=== PATIENT | male | born 1980 | race Caucasian/White ===

== ENCOUNTER 2019-04-02 10:35 | Emergency (ER) | payer BC ==
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
--- OUTSIDE RECORDS SUMMARY | 2019-04-02 10:59 | XMS REPORT ---
:1980 Author Organization [facility] Address [address] [place] [address] Care Team Providers Name Role Phone LorenzoMal Unavailable Unavailable PROBLEMS Type Condition ICD9-CM SME99-MC Onset Condition SNOMED Code Code Code Dates Status Problem Low back pain M54.5 Active 888894276 Problem History of hepatitis Z86.19 Active 563437960 C Problem Acute hepatitis C B17.10 Active 937451048 Problem Cocaine abuse in F14.10 Active 901615512 remission Problem Cryoglobulinemia D89.1 Active 867184752157115 Problem BPH (benign N40.0 Active 181859484 prostatic hypertrophy) with urinary retention Problem Tinnitus, bilateral H93.13 Active 7443950086498 Problem Chronic viral B18.2 Active 160130312 hepatitis C Problem Erectile N52.9 Active 718135311 dysfunction, unspecified erectile dysfunction type Problem Hep C w/o coma, B18.2 Active 871200188 chronic Problem Chronic pain after G89.29 Active 255415915 traumatic injury Problem 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 50994882 personality disorder Problem Sleep disorder G47.9 Active 67844862 Problem History of heroin Z87.898 Active 445884327103961 abuse Problem Mood disorder F39 Active 54253038 Problem Anxiety F41.9 Active 35723265 Problem Cannabis dependence, F12.20 Active 52963988 abuse Problem Nicotine dependence, F17.210 Active 67053437 cigarettes, uncomplicated Problem Pain, chronic due to G89.21 Active 912470997 trauma Problem Tinnitus of both H93.13 Active 4202600324967 ears Problem Environmental Z91.09 Active 244731618 allergies Problem Reactive depression F32.9 Active 14382520 (situational) ALLERGIES No Known Allergies ENCOUNTERS Encounter Location Date Diagnosis [address] Mar, [facility] [place] [address] Mar, [facility] [place] [address] Mar, Dehiscence of operative [facility] [place] wound, initial encounter [address] T81.31XA ; Discharge from wound T14.8XXA and Closed fracture of right ankle, sequela S82.891S [address] Mar, Anxiety F41.9 and [facility] [place] Antisocial personality [address] disorder F60.[address] Feb, Encounter for immunization [facility] CRISTELA Cahcon Z23 [address] Feb, [place] [address] Feb, [facility] [place] [address] Feb, Anxiety F41.9 and [facility] [place] Antisocial personality [address] disorder F60.[address] Feb, Dehiscence of operative [facility] [place] wound, initial encounter [address] T81.31XA and Discharge from wound T14.8XXA [address] Feb, [facility] [place] [address] [place] Feb, [place] [address] Feb, Anxiety F41.9 and [facility] [place] Antisocial personality [address] disorder F60.[address] Feb, [place] [address] right tibia Z87.81 and Right foot pain M79.[address] [place] Feb, 2019 [facility] [place] [address] Feb, [facility] [place], [place] [address] [address] [place] Feb, [facility] [place] [address] Feb, Anxiety F41.9 ; History of [place] heroin abuse Z87.898 ; [address] Cannabis dependence, abuse F12.20 and Cocaine abuse in remission F14.[address] Feb, Mood disorder F39 and [place] Antisocial personality [address] disorder F60.[address] Jan, Anxiety F41.9 and [place] Antisocial personality [address] disorder F60.[address] Jan, Anxiety F41.9 [place] [address] Jan, [place] [address] Jan, Anxiety F41.9 [place] [address] Dec, [place] [address] Dec, Anxiety F41.9 ; Mood [place] disorder F39 and Antisocial [address] personality disorder F60.[address] Dec, Anxiety F41.9 [place] [address] Dec, [place] [address] Dec, [place] [address] Dec, Mood disorder F39 and [place] Antisocial personality [address] disorder F60.[address] Nov, [place] [address] (situational) F32.[address] Nov, Right wrist pain M25.531 [place] and Environmental allergies [address] Z91.09 [facility] [address] [facility] Nov, [facility] [place] [address] [address] [place] September, [place] [address] [place] [address] September, [facility] [place] [address] [place] [address] Jul, Herpes zoster without [facility] C[facility]STELA [place] complication B02.9 [address] Jul, [place] [address] Jul, Tinnitus of both ears [place] H93.13 [address] May, Encounter for general adult [facility] [place] w/[place] [address] abnormal findings Z00.[address] [place] [address] May, [facility] [place] [address] Apr, [place] [address] Feb, Chronic pain after [place] traumatic injury G89.29 [address] Feb, [place] [address] Jan, [place] [address] Alfonso Goetz [address] Jan, History of hepatitis C [facility] CRISTELA [place]acon Z86.19 [address] [place] [address] Jan, [facility] [place] [address] [place] Goetz [address] Dec, Bilateral edema of lower [facility] [place] extremity R60.0 [address] [place] [address] Nov, Skin lesion of right arm [facility] [place] L98.9 [address] [place] [address] Nov, [facility] [place] [address] [place] [address] Nov, [facility] [place] [address] Nov, [place] [address] [facility] [address] [place] [address] Oct, [place] [address] [address] Oct, [place] [address] [place] [address] Oct, [facility] [place] [address] Oct, [facility] [place] [address] [facility] [address] [facility] Oct, [place] [address] Alfonso Goetz [address] Oct, [facility] [place] [address] [address] Oct, [place] [address] Oct, Lower abdominal pain R10.30 [facility] [place] ; Strain of lumbar [address] paraspinous muscle, initial encounter S39.012A and History of hepatitis C Z86.[address] Oct, History of hepatitis C [facility] [place] Arnold Z86.19 [address] Oct, Right lower quadrant [facility] C[place]ELA [place] abdominal pain R10.31 ; [address] Anxiety F41.9 and Bone spur M77.9 [facility] [address] [place] [address] Oct, [place] [address] [place] [address] [place] September, [facility] [place] [address] [facility] [address] [facility] September, [place] [address] September, [facility] [place] [address] [address] [place] September, Abrasion of left cornea, [facility] [place] initial encounter S05.02XA [address] [address] [place] September, [facility] [place] [address] Case Management [address] [place], [place] [address] [address] [place] Aug, [facility] [place] [address] [address] [place] Aug, Acute hepatitis C B17.10 [facility] [place] [address] [address] [place] Aug, [facility] [place] [address] [place] Aug, Acute hepatitis C B17.10 [facility] [place] and Dizziness R42 [address] [place] [address] [place] Aug, [facility] [place] [address] [place] Go[place] [address] [place] Aug, Anxiety F41.9 and Sleep [facility] [place] disorder G47.9 [address] [address] [place] Aug, [facility] [place] [address] [facility] [address] [facility] Jul, [place] [address] [place] [address] [place] Jul, [facility] [place] [address] [address] [place] Jul, Acute hepatitis C B17.10 [facility] [place] [address] Al[place] Goetz [address] [place] Jul, [facility] [place] [address] Case Management [address] [place], [place] [address] Case Management [address] [place], [place] [address] Al[place] Goetz [address] [place] Jul, [facility] [place] [address] Case Management [address] [place], [place] [address] [address] [place] Jul, Anxiety F41.9 ; Sleep [facility] [place] disorder G47.9 and Acute [address] hepatitis C B17.10 [place] [address] [place] Jul, [facility] [place] [address] [facility] [address] [place] [address] Jun, [place] [address] Alfon[place] Go[place] [address] [address] [place] Jun, Anxiety F41.9 [facility] [place] [address] [place] [address] [address] [place] Jun, [facility] [place] [address] Case Management [address] [place], [place] [address] [place] [address] [address] [place] May, Encounter for general adult [facility] [place] w/[place] [address] abnormal findings Z00.00 Case Management [address] [place], [place] [address] Case Management [address] [place], [place] [address] [place] [address] [place] May, [facility] [place] [address] [address] [place] May, Hep C w/o coma, chronic [facility] [place] B18.2 [address] [place] [address] [place] May, Hep C w/o coma, chronic [facility] [place] B18.2 [address] May, [facility] [place] [address] [place] [address] [place] May, [facility] [place] [address] [address] [place] May, [facility] [place] [address] [address] [place] Apr, [facility] [place] [address] [facility] [address] [place] Apr, [facility] [place] [address] [place] [address] [place] Apr, Elevated BP without [facility] [place] diagnosis of hypertension [address] R03.0 Facilitated Enrollment [address] [place] Apr, [facility] [address] [address] [place] Apr, Chronic viral hepatitis C [facility] [place] B18.2 ; Cryoglobulinemia [address] D89.1 ; Nicotine dependence, cigarettes, uncomplicated F17.210 and Cocaine abuse in remission F14.10 [facility] [address] [place], [place] [address] [place] [address] [place] September, [facility] [place] [address] [place] [address] [place] September, [facility] [place] [address] [address] [place] September, [facility] [place] [address] [address] [place] September, [facility] [place] [address] [place] [address] [place] September, [facility] [place] [address] Case Management [address] [place], September, [address] September, History of heroin abuse [facility] [place] Z87.898 and Cannabis dependence, abuse F12.[address] September, [facility] [place] [address] [place] [address] September, Excessive sweating R61 ; [facility] [place] Erectile dysfunction, unspecified erectile dysfunction type N52.9 ; Ejaculatory disorder N53.19 ; Sleep disorder G47.9 and Anxiety F41.9 Case Management [address] [place], September, [address] Aug, [facility] [place] [address] [place] [address] Aug, [facility] [place] [address] Case Management [address] [place], Aug, [address] Aug, Routine general medical [facility] [place] examination [place] a [place] [address] care facility Z00.00 ; History of hepatitis C Z86.19 ; Nicotine dependence, cigarettes, uncomplicated F17.210 ; History of heroin abuse Z87.898 ; Cannabis dependence, abuse F12.20 ; Screening examination for sexually transmitted disease Z11.3 ; Special screening examination for other specified viral diseases Z11.59 ; Allergic rhinitis J30.9 ; Depression F32.9 and Skin disorder L98.[address] Aug, [place] [address] Aug, Dizziness R42 ; BPH ( benign [facility] [place] prostatic hypertrophy) with urinary retention N40.0 and Tinnitus, bilateral H93.13 [address] [place] Aug, [facility] [place] [address] Aug, [facility] [place] [address] [place] [address] Aug, [facility] [place] [address] [address] [place] Aug, [facility] [place] [address] Aug, [place] [address] Aug, History of hepatitis C [place] Z86.19 ; Localized edema [address] R60.0 ; Chronic viral hepatitis C B18.2 and Cryoglobulinemia D89.1 Case Management [address] [place], Aug, [address] Aug, History of hepatitis C [place] Z86.19 [address] Aug, [place] [address] Jul, Low back pain M54.5 ; [place] edema R60.0 and Dysuria [address] [address] Jul, BPH (benign prostatic [place] hypertrophy) with urinary [address] retention N40.[address] Jul, Low back pain M54.5 ; [place] edema R60.0 ; BPH (benign [address] prostatic hypertrophy) with urinary retention N40.0 ; Acute hepatitis C B17.10 and Elevated liver enzymes R74.[address] Jun, Hepatitis C virus [place] infection, unspecified [address] chronicity B19.[address] May, [place] [address] May, Routine general medical [place] examination at a [address] Z00.00 ; History of hepatitis C Z86.19 ; Nicotine dependence, cigarettes, uncomplicated F17.210 ; History of heroin abuse Z87.898 ; Cannabis dependence, abuse F12.20 ; Screening examination for sexually transmitted disease Z11.3 ; Special screening examination for other specified viral diseases Z11.59 ; Allergic rhinitis J30.9 ; Depression F32.9 and Skin disorder L98.9 Facilitated Enrollment UNKNOWN May, - [address] Apr, Anxiety 300.00 Health [place] [address] [place] Go[place] [address] Mar, Stress headaches F45.41 [facility] [place] [address] Mar, Dysuria R30.0 [facility] [place] [address] Alfonso Goetz [address] Mar, [facility] [place] [address] Mar, [facility] [place] [address] Feb, [facility] [place] [address] Feb, [facility] [place] [address] Feb, Right ankle injury S99.911A [facility] [place] [address] [place] [address] Feb, [facility] [place] [address] Jan, Injury of right knee, leg [facility] [place] ankle and foot 959.7 and [address] Dysuria 788.[address] Jan, [facility] [place] [address] Jan, Right ankle pain 719.47 [facility] [place] [address] [place] [address] Jan, [facility] [place] [address] Jan, Right ankle pain 719.47 and [facility] [place] Cannabis abuse 305.20 [address] Alfonso Goetz [address] Jan, [facility] [place] [address] Jan, Elevated liver enzymes [facility] [place] 790.5 [address] Jan, Elevated liver function [facility] [place] tests 790.6 [address] Jan, Anxiety 300.00 ; History of [facility] [place] heroin abuse 305.53 ; COCAINE ABUSE-IN REMISS 305.63 ; History of hepatitis C V12.09 and Tobacco use disorder 305.[address] Dec, [facility] [place] [address] Dec, [facility] [place] [address] Nov, Skin disorder 709.9 ; [facility] [place] History of heroin abuse 305.53 ; Low back pain 724.2 ; COCAINE ABUSE-IN REMISS 305.63 and Vomiting 787.[address] Nov, Anxiety 300.00 [facility] [place] [address] Oct, [facility] [place] [address] [facility] [address] [place], [place] [address] Oct, Degenerative disc disease , [facility] [place] lumbar 722.52 ; History of heroin abuse 305.53 ; COCAINE ABUSE-IN REMISS 305.63 ; Back pain 724.5 and Anxiety 300.[address] September, [facility] [place] [address] Jul, [facility] [place] [address] Jun, [facility] [place] [address] May, [facility] [place] [address] [facility] [address] [place] May, [facility] [place] [address] [facility] [address] [place] Apr, [facility] [place] [address] Mar, [facility] [place] [address] Mar, Routine general medical [facility] [place] examination at a [address] V70.0 ; Low back pain 724.2 ; Anxiety disorder 300.00 ; History of hepatitis C V12.09 ; Need for influenza vaccination V04.81 and VACCIN FOR DISEASE NEC V05.8 [facility] [address] [place] [address] May, [place] [address] May, [place] [address] May, Low back pain 724.2 [place] [address] IMMUNIZATIONS No Known Immunizations SOCIAL HISTORY Never Assessed REASON FOR REFERRAL FUNCTIONAL STATUS PLAN OF CARE Activity Details Follow Up 3 Weeks Reason:right ankle swelling Pending Test COMPREHENSIVE METABOLIC PANEL Pending Test CT ANKLE RT WITH CONTRAST & 3D RECON VITAL SIGNS Temperature 98.7 degrees Fahrenheit 2019-03-27 Heart Rate 16 2019-03-27 Weight 180.8 2019-03-27 Height 72.0 in 2019-03-27 BMI 24.52 kg/m2 2019-03-27 Oximetry 100 % 2019-03-27 Blood pressure systolic 130 mm Hg 2019-03-27 Blood pressure diastolic 70 mm Hg 2019-03-27 MEDICATIONS Medication Instructions Dosage Frequency Start End Duration Status Date Date Clindamycin 300 orally tid one tab 8h Active mg 10d 300 mg Nicoderm CQ 21 Transdermal Once 1 patch to 24h 14 days Active MG/24HR a day skin Amitriptyline HCl Orally Once a 1 tablet at 24h Active 50 MG day bedtime PROCEDURES Procedure Date Ordered Result Body Site BODY MASS INDEX DOCD Mar 27, 2019 SMOKING + 2ND HAND ASSESSED Mar 27, 2019 Oxygen saturation results documented and reviewed Mar 27, 2019 BLOOD PRESSURE, MEASURED Mar 27, 2019 RESULTS No Results REASON FOR VISIT Follow up/ Consultation Insurance Providers [facility] Health Member Patient Patient Patient Patient Patient Subscriber Subscriber Subscriber Group Insurance Plan Plan Plan Plan ID Relationship Address Phone Name Date of ID Name Date of No Type Insurance Insurance Insurance Coverage to Subscriber Address Phone Name Dates Case [phone] Case self Ivan [id number] Management [place] 02 Management [address]f [facility] [address] Community Medicaid [id number] Medicaid self Ivan [id number] Wrap [facility] [address] [place] [address] Blue [phone] Blue self Ivan [id number] Choice [place] [id number] 89 Choice Opt Colf 6 Medical [place] Medical [address] Medicaid [phone] Medicaid self Ivan [id number] [facility] 00 [address] [address] Blue [phone] Blue self Ivan [id number] Choice Opt [address] 83 Choice Opt Colf [id number] Hale Claims [id number] [place] [facility] [place] [address] [facility] [phone] [facility] self Ivan [id number] M Family [place] 02 [place] [address] Planning Full Fee Full Fee MEDICAL (GENERAL) HISTORY Type Description Date Medical History Heroin and cocaine addcition (remission )-05/08/13was when he last used IVDU- has used [...] incarcerated - 3 times- has been in [facility] -97 days is on parole Medical History is in [facility] - 04/05 Medical History 12/04/14ED visit for skin lesion Medical History 11/28/14 ED visit overdose synthetic THC Medical History 01/22/15 smoking THC Medical History February again -for 2weeks , [place] - hematuria while there Medical History 04/14/15 ED visit red spots on legs - atarax - dermatology referral Medical History [facility] from pen[facility]iary 05/27/16 Medical History 06/29/16 dermatology consult guttate psoriasis, triamincinolone Medical History 07/09/16 ED visit laceration Medical History 11/10/17 fell off roof , ER fractures legs, ankle , admitted , surgery Medical History 11/29/17 removedd ORIF , sutures and splint Medical History 09/20/18 ENT consult tinnitus Medical History 11/30/18 Orthopedic f/u doing well , may have plate removed in Sept Medical History 03/12/19 [facility] Orthopedic consult right ankle pain , right tibia pain referred back to traumtologist Medical History 03/22/19 Orthopedic f/u treated for possible infection , PT , f/u 8 weeks Medical History Depression /anxiety Surgical History Left ankle ORIF, Right fibula [...]
--- OUTSIDE RECORDS SUMMARY | 2019-04-02 10:59 | XMS REPORT ---
:1980 Author Organization [facility] Address [address] [place] [address] Care Team Providers Name Role Phone Diana Grimes Unavailable Unavailable PROBLEMS Type Condition ICD9-CM [id number] Onset Condition SNOMED Code Code Code Dates Status Problem Low back pain M54.5 Active 779434269 Problem History of hepatitis Z86.19 Active 926390621 C Problem Acute hepatitis C B17.10 Active 860070800 Problem Cocaine abuse in F14.10 Active 891584711 remission Problem Cryoglobulinemia D89.1 Active 564965156196105 Problem BPH (benign N40.0 Active 497817788 prostatic hypertrophy) with urinary retention Problem Tinnitus, bilateral H93.13 Active 9653395664825 Problem Chronic viral B18.2 Active 719225689 hepatitis C Problem Erectile N52.9 Active 397438595 dysfunction, unspecified erectile dysfunction type Problem Hep C w/o coma, B18.2 Active 508863177 chronic Problem Chronic pain after G89.29 Active 289359146 traumatic injury Problem 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 83915604 personality disorder Problem Sleep disorder G47.9 Active 52971370 Problem History of heroin Z87.898 Active 302395213424286 abuse Problem Mood disorder F39 Active 25234199 Problem Anxiety F41.9 Active 66899469 Problem Cannabis dependence, F12.20 Active 34286364 abuse Problem Nicotine dependence, F17.210 Active 45219996 cigarettes, uncomplicated Problem Pain, chronic due to G89.21 Active 708189656 trauma Problem Tinnitus of both H93.13 Active 2195393009050 ears Problem Environmental Z91.09 Active 675907616 allergies Problem Reactive depression F32.9 Active 35126033 (situational) ALLERGIES No Information ENCOUNTERS Encounter Location Date Diagnosis [address] Mar, [facility] [place] [address] Mar, [facility] [place] [address] Mar, Dehiscence of operative [facility] [place] wound, initial encounter [address] T81.31XA ; Discharge from wound T14.8XXA and Closed fracture of right ankle, sequela S82.891S [address] Mar, Anxiety F41.9 [facility] [place] Antisocial personality [address] disorder F60.[address] Feb, Encounter for immunization [facility] [place] Z23 [address] Feb, [place] [address] Feb, [facility] [place] [address] Feb, Anxiety F41.9 and [facility] [place] Antisocial personality [address] disorder F60.[address] Feb, Dehiscence of operative [facility] [place] wound, initial encounter [address] T81.31XA and Discharge from wound T14.8XXA [address] Feb, [facility] [place] [address] [place] Feb, [place] [address] Feb, Anxiety F41.9 and [facility] [place] Antisocial personality [address] disorder F60.[address] Feb, [place] [address] right tibia Z87.81 and Right foot pain M79.[address] [place] Feb, 2019 [facility] [place] [address] Feb, [facility] [place], [place] [address] [address] [place] Feb, [place] [address] Feb, Anxiety F41.9 ; History of [place] heroin abuse Z87.898 ; [address] Cannabis dependence, abuse F12.20 and Cocaine abuse in remission F14.[address] Feb, Mood disorder F39 and [place] Antisocial personality [address] disorder F60.[address] Jan, Anxiety F41.9 and [place] Antisocial personality [address] disorder F60.[address] Jan, Anxiety F41.9 [place] [address] Jan, [place] [address] Jan, Anxiety F41.9 [place] [address] Dec, [place] [address] Dec, Anxiety F41.9 ; Mood [place] disorder F39 and Antisocial [address] personality disorder F60.[address] Dec, Anxiety F41.9 [place] [address] Dec, [place] [address] Dec, [place] [address] Dec, Mood disorder F39 and [place] Antisocial personality [address] disorder F60.[address] Nov, [place] [address] (situational) F32.[address] Nov, Right wrist pain M25.531 [place] and Environmental allergies [address] Z91.09 [facility] Nov, [facility] [place] [address] [address] [place] September, [place] [address] [place] [address] September, [facility] [place] [address] [place] [address] Jul, Herpes zoster without [facility] [place] complication B02.9 [address] Jul, [place] [address] Jul, Tinnitus of both ears [place] H93.13 [address] [place] May, Encounter for general adult [facility] [place] [address] abnormal findings Z00.00 [place] [address] May, [facility] [place] [address] Apr, [place] [address] Feb, Chronic pain after [place] traumatic injury G89.29 [address] Feb, [place] [address] Jan, [place] [address] [place] [address] Jan, History of hepatitis C [facility] [place] Z86.19 [address] [place] [address] Jan, [facility] [place] [address] [place] [address] Dec, Bilateral edema of lower [facility] [place] extremity R60.0 [address] [place] [address] Nov, Skin lesion of right arm [facility] [place] L98.9 [address] [place] [address] Nov, [facility] [place] [address] [place] [address] Nov, [facility] [place] [address] Nov, [place] [address] [facility] [address] [place] [address] Oct, [place] [address] Oct, [place] [address] [place] [address] Oct, [facility] [place] [address] [place] Oct, [facility] [place] [address] [facility] [address] [facility] Oct, [place] [address] [place] [address] Oct, [facility] [place] [address] Oct, [place] [address] [place] Oct, Lower abdominal pain R10.30 [facility] [place] ; Strain of lumbar [address] paraspinous muscle, initial encounter S39.012A and History of hepatitis C Z86.[address] [place] Oct, History of hepatitis C [facility] [place] Z86.19 [address] [place] Oct, Right lower quadrant [facility] [place] abdominal pain R10.31 ; [address] Anxiety F41.9 and Bone spur M77.9 [facility] [address] [place] [address] Oct, [place] [address] [place] [address] [place] September, [facility] [place] [address] [facility] 60 [facility] September, [place] [address] [place] September, [facility] [place] [address] [place] [place] September, Abrasion of left cornea, [facility] [place] initial encounter S05.02XA [address] [place] [place] September, [facility] [place] [address] Case Management [address] [place], [place] [address] [place] [place] Aug, [facility] [place] [address] [place] [place] Aug, Acute hepatitis C B17.10 [facility] [place] [address] [place] [place] Aug, [facility] [place] [address] [place] [place] Aug, Acute hepatitis C B17.10 [facility] [place] and Dizziness R42 [address] [place] [address] [place] Aug, [facility] [place] [address] [place] [address] [place] Aug, Anxiety F41.9 and Sleep [facility] [place] disorder G47.9 [address] [place] [place] Aug, [facility] [place] [address] [facility] [address] [facility] Jul, [place] [address] [place] [address] [place] Jul, [facility] [place] [address] [place] [place] Jul, Acute hepatitis C B17.10 [facility] [place] [address] [place] [address] [place] Jul, [facility] [place] [address] [facility] [address] [place] [address] [facility] [address] [place] [address] [place] [address] [place] Jul, [facility] [place] [address] Case Management [address] [place], [place] [address] [place] [place] Jul, Anxiety F41.9 ; Sleep [facility] [place] disorder G47.9 and Acute [address] hepatitis C B17.10 [place] [address] [place] Jul, [facility] [place] [address] [facility] [address] [place] [address] Jun, [place] [address] [place] [address] [employer] [place] Jun, Anxiety F41.9 [facility] [place] [address] [place] [address] [employer] [place] Jun, [facility] [place] [address] Case Management [address] [place], [place] [address] [place] [address] [employer] [place] May, Encounter for general adult [facility] [place] [address] abnormal findings Z00.00 Case [facility] [address] [place], [place] [address] Case Management [address] [place], [place] [address] [place] [address] [place] May, [facility] [place] [address] [place] [place] May, Hep C w/o coma, chronic [facility] [place] B18.2 [address] [place] [address] [place] May, Hep C w/o coma, chronic [facility] [place] B18.2 [address] May, [place] [address] [place] [address] [place] May, [place] [address] [place] [place] May, [place] [address] [place] [place] Apr, [place] [address] [facility] [address] [place] Apr, [facility] [place] [address] [place] [address] [place] Apr, Elevated BP without [facility] [place] diagnosis of hypertension [address] R03.0 Facilitated Enrollment [address] [place] Apr, [facility] [address] [address] [place] Apr, Chronic viral hepatitis C [facility] [place] B18.2 ; Cryoglobulinemia [address] D89.1 ; Nicotine dependence, cigarettes, uncomplicated F17.210 and Cocaine abuse in remission F14.10 [facility] [address] [place], [place] [address] [place] [address] [place] September, [facility] [place] [address] [place] [address] [place] September, [facility] [place] [address] [place] [place] September, [facility] [place] [address] [place] [place] September, [facility] [place] [address] [place] [address] [place] September, [facility] [place] [address] Case Management [address] [place], September, [address] September, History of heroin abuse [facility] [place] Z87.898 and Cannabis dependence, abuse F12.[address] September, [facility] [place] [address] [place] [address] September, Excessive sweating R61 ; [facility] [place] Erectile dysfunction, unspecified erectile dysfunction type N52.9 ; Ejaculatory disorder N53.19 ; Sleep disorder G47.9 and Anxiety F41.9 Case Management [address] [place], September, [address] Aug, [facility] [place] [place] [address] Aug, [facility] [place] [address] Case Management [address] [place], Aug, [address] Aug, Routine general medical [facility] [place] examination at a [place] [address] care facility Z00.00 ; History of hepatitis C Z86.19 ; Nicotine dependence, cigarettes, uncomplicated F17.210 ; History of heroin abuse Z87.898 ; Cannabis dependence, abuse F12.20 ; Screening examination for sexually transmitted disease Z11.3 ; Special screening examination for other specified viral diseases Z11.59 ; Allergic rhinitis J30.9 ; Depression F32.9 and Skin disorder L98.[address] Aug, [place] [address] Aug, Dizziness R42 ; BPH ( benign [facility] [place] prostatic hypertrophy) with urinary retention N40.0 and Tinnitus, bilateral H93.13 [address] [place] Aug, [facility] [address] Aug, [facility] [address] [place] [address] Aug[place] [address] [address] [place] Aug, [place] [address] Aug, [place] [address] Aug, History of hepatitis C [place] Z86.19 ; Localized edema [address] R60.0 ; Chronic viral hepatitis C B18.2 and Cryoglobulinemia D89.1 Case Management [address] [place], Aug, [address] Aug, History of hepatitis C [place] Z86.19 [address] Aug, [place] [address] Jul, Low back pain M54.5 ; [place] edema R60.0 and Dysuria [address] [address] Jul, BPH (benign prostatic [place] hypertrophy) with urinary [address] retention N40.[address] Jul, Low back pain M54.5 ; [place] edema R60.0 ; BPH (benign [address] prostatic hypertrophy) with urinary retention N40.0 ; Acute hepatitis C B17.10 and Elevated liver enzymes R74.[address] Jun, Hepatitis C virus [place] infection, unspecified [address] chronicity B19.[address] May, [place] [address] May, Routine general medical [place] examination at a [address] Z00.00 ; History of hepatitis C Z86.19 ; Nicotine dependence, cigarettes, uncomplicated F17.210 ; History of heroin abuse Z87.898 ; Cannabis dependence, abuse F12.20 ; Screening examination for sexually transmitted disease Z11.3 ; Special screening examination for other specified viral diseases Z11.59 ; Allergic rhinitis J30.9 ; Depression F32.9 and Skin disorder L98.9 Facilitated Enrollment UNKNOWN May, - [address] Apr, Anxiety 300.00 Health [place] [address] [place] [address] Mar, Stress headaches F45.41 [facility] [address] [place] Mar, Dysuria R30.0 [facility] [address] [place] [address] Mar, [facility] [address] [place] Mar, [facility] [address] [place] Feb, [facility] [address] [place] Feb, [facility] [address] [place] Feb, Right ankle injury S99.911A [facility] [address] [place] [address] Feb, [facility] [address] [place] Jan, Injury of right knee, leg [facility] [place] ankle and foot 959.7 and [address] Dysuria 788.[address] Jan, [facility] [address] [place] Jan, Right ankle pain 719.47 [facility] [address] [place] [address] Jan, [facility] [address] [place] Jan, Right ankle pain 719.47 and [facility] [place] Cannabis abuse 305.20 [address] [place] [address] Jan, [facility] [place] [address] [place] Jan, Elevated liver enzymes [facility] [place] 790.5 [address] Jan, Elevated liver function [facility] [place] tests 790.6 [address] Jan, Anxiety 300.00 ; History of [facility] [place] heroin abuse 305.53 ; COCAINE ABUSE-IN REMISS 305.63 ; History of hepatitis C V12.09 and Tobacco use disorder 305.[address] Dec, [place] [address] Dec, [place] [address] Nov, Skin disorder 709.9 ; [facility] [place] History of heroin abuse 305.53 ; Low back pain 724.2 ; COCAINE ABUSE-IN REMISS 305.63 and Vomiting 787.[address] Nov, Anxiety 300.00 [place] [address] Oct, [facility] [address] [facility] [address] [place], [place] [address] Oct, Degenerative disc disease , [facility] [place] lumbar 722.52 ; History of heroin abuse 305.53 ; COCAINE ABUSE-IN REMISS 305.63 ; Back pain 724.5 and Anxiety 300.[address] September, [facility] [place] [address] Jul, [place] [address] Jun, [facility] [address] May, [place] [address] [facility] [address] [place] May, [facility] [place] [address] [facility] [address] [place] Apr, [facility] [place] [address] Mar, [facility] [address] Mar, Routine general medical [facility] [place] examination at a [address] V70.0 ; Low back pain 724.2 ; Anxiety disorder 300.00 ; History of hepatitis C V12.09 ; Need for influenza vaccination V04.81 and VACCIN FOR DISEASE NEC V05.[address] May, [place] [address] May, [place] [address] May, Low back pain 724.2 [place] [address] IMMUNIZATIONS No Known Immunizations SOCIAL HISTORY Never Assessed REASON FOR REFERRAL FUNCTIONAL STATUS PLAN OF CARE VITAL SIGNS MEDICATIONS Unknown Medications PROCEDURES No Known procedures RESULTS No Results REASON FOR VISIT question Insurance Providers [facility] Health Member Patient Patient Patient Patient Patient Subscriber Subscriber Subscriber Group Insurance Plan Plan Plan Plan ID Relationship Address Phone Name Date of ID Name Date of No Type Insurance Insurance Insurance Coverage to Subscriber Address Phone Name Dates Blue [phone] Blue self Ivan [id number] Choice Opt [id number] Choice Opt Colf 6 Medical [place] [facility] [address] Medicaid [id number] Medicaid self Ivan [id number] [facility] 00 Colf [address] Blue [address]-21 Blue self Ivan [id number] Choice Opt 9255 Attn 83 Choice Opt Colf [id number] [place] [id number] [place] [facility] [place] [facility] [place] [facility] [address] FLCH Slide [phone] FLCH Slide self Ivan [id number] M Family [place] 02 [facility] [address] Planning Full Fee Full Fee Medicaid [id number] Medicaid self Ivan [id number] [facility] 56 Wrap [place] [id number] Case [phone] Case self Ivan [id number] Management [place] 02 Management [facility] [address] [facility] MEDICAL (GENERAL) HISTORY Type Description Date [...] - 3 times- has been in [facility] -97 days is on parole Medical History is in [facility] - 04/05 Medical History 12/04/14ED visit for skin lesion Medical History 11/28/14 ED visit overdose synthetic THC Medical History 01/22/15 smoking THC Medical History February again -for 2weeks , Micro - hematuria while there Medical History 04/14/15 ED visit red spots on legs - atarax - dermatology referral Medical History released from longterm 05/27/16 Medical History 06/29/16 dermatology consult guttate [...]
--- OUTSIDE RECORDS SUMMARY | 2019-04-02 10:59 | XMS REPORT ---
:1980 Author Organization [facility] Address [address] [place] [address] Care Team Providers Name Role Phone Mera Gage Unavailable Unavailable PROBLEMS Type Condition ICD9-CM EMA32-DT Onset Condition SNOMED Code Code Code Dates Status Problem Low back pain M54.5 Active 175139629 Problem History of hepatitis Z86.19 Active 325526175 C Problem Acute hepatitis C B17.10 Active 928048361 Problem Cocaine abuse in F14.10 Active 159232508 remission Problem Cryoglobulinemia D89.1 Active 682558017037072 Problem BPH (benign N40.0 Active 356847043 prostatic hypertrophy) with urinary retention Problem Tinnitus, bilateral H93.13 Active 8240446233960 Problem Chronic viral B18.2 Active 153053591 hepatitis C Problem Erectile N52.9 Active 148029110 dysfunction, unspecified erectile dysfunction type Problem Hep C w/o coma, B18.2 Active 337311667 chronic Problem Chronic pain after G89.29 Active 732879922 traumatic injury Problem 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 38126190 personality disorder Problem Sleep disorder G47.9 Active 54302219 Problem History of heroin Z87.898 Active 944796783948909 abuse Problem Mood disorder F39 Active 46281785 Problem Anxiety F41.9 Active 76313683 Problem Cannabis dependence, F12.20 Active 78546632 abuse Problem Nicotine dependence, F17.210 Active 13499931 cigarettes, uncomplicated Problem Pain, chronic due to G89.21 Active 097156369 trauma Problem Tinnitus of both H93.13 Active 2626563257885 ears Problem Environmental Z91.09 Active 169905457 allergies Problem Reactive depression F32.9 Active 36404392 (situational) ALLERGIES No Information ENCOUNTERS Encounter Location Date Diagnosis [place] Mar, [facility] C[place]STELA [place] [address] Feb, Encounter for immunization [facility] CRISTELA [place] Z23 [address] Formerly [facility] [address] [facility] Feb, [place] [address] [place] Feb, [facility] [place] [address] Feb, Anxiety F41.9 and [facility] [place] Antisocial personality [address] disorder [address] Feb, Dehiscence of operative [facility] [place] wound, initial encounter [address] T81.31XA and Discharge from wound T14.8XXA [address] Feb, [facility] Alfonso [place] [address] Feb, [place] [address] Feb, Anxiety F41.9 and [place] Antisocial personality [address] disorder F60.2 [place] [address] [facility] 14 Feb, 2019 [place] [address] right tibia Z87.81 and Right foot pain M79.[address] [place] 10 Feb, 2019 [place] [address] Feb, [place] [address] Feb, [place] [address] Feb, Anxiety F41.9 ; History of [place] heroin abuse Z87.898 ; [address] Cannabis dependence, abuse F12.20 and Cocaine abuse in remission F14.[address] Feb, Mood disorder F39 and [place] Antisocial personality [address] disorder F60.[address] Jan, Anxiety F41.9 and [place] Antisocial personality [address] disorder F60.[address] Jan, Anxiety F41.9 [place] [address] Jan, [place] [address] Jan, Anxiety F41.9 [place] [address] Formerly [facility] [address] [facility] Dec, [place] [address] Dec, Anxiety F41.9 ; Mood [facility] [place] disorder F39 and Antisocial [address] personality disorder F60.[address] Dec, Anxiety F41.9 [place] [address] Dec, [facility] [place] [address] Dec, [facility] [place] [address] Dec, Mood disorder F39 and [facility] [place] Antisocial personality [address] disorder F60.2 Formerly [facility] [address] [facility] Nov, [place] [address] (situational) F32.[address] Nov, Right wrist pain M25.531 [facility] [place] and Environmental allergies [address] Z91.09 [facility] [address] [facility] Nov, [place] [address] September, [facility] [place] [address] September, [facility] [place] [address] Jul, Herpes zoster without [facility] [place] complication B02.9 [address] [facility] Jul, [place] [address] [facility] [address] [facility] 15 Jul, 2018 Tinnitus of both ears [place] H93.13 [address] [address] [place] May, Health [facility] [place] [address] [place] [address] May, Encounter for general adult Health [facility] [place] w/[place] [address] abnormal findings Z00.00 Formerly [facility] [address] [facility] Apr, [facility] [place] [address] [facility] [address] [place] [address] Feb, Chronic pain after [place] traumatic injury G89.29 [address] [facility] [address] [place] [address] Feb, [place] [address] Jan, [place] [address] [place] [address] [employer] [place] Jan, History of hepatitis C Health [facility] CRISTELA [place] Z86.19 [address] [place] [address] Jan, [facility] [place] [address] [place] [address] Dec, Bilateral edema of lower Health [facility] [place] extremity R60.0 [address] [place] [address] Nov, Skin lesion of right arm [facility] Medical CRISTEL[place] L98.9 [address] [place] [address] [place] Nov, [facility] Medical [place] [address] [place] [address] Nov, [facility] [place] [address] Nov, [place] [address] [facility] [address] [place] [address] Oct, [place] [address] [facility] [address] [place] [address] Oct, [place] [address] [place] [address] [place] Oct, [facility] Medical [place] [address] [place] [address] [place] Oct, [facility] Medical [place] [address] [address] Oct, [place] [address] [place] [address] [place] Oct, [facility] Medical [place] [address] [facility] [address] [place] [address] Oct, [place] [address] Oct, Lower abdominal pain R10.30 [facility] [place] ; Strain of lumbar [address] paraspinous muscle, initial encounter S39.012A and History of hepatitis C Z86.[address] Oct, History of hepatitis C [facility] CRISTELA [place]acon Z86.19 [address] Oct, Right lower quadrant [facility] CRISTELA [place] abdominal pain R10.31 ; [address] Anxiety F41.9 and Bone spur M77.9 [facility] [address] [facility] Oct, [place] [address] September, [facility] [place]ST[place] [address] September, [place] [address] September, [facility] [place] [address] September, Abrasion of left cornea, [facility] [place] initial encounter S05.02XA [address] September, [facility] [place] [address] Case Management [address] [place], [place] [address] Aug, [facility] [place] [address] [address] Aug, Acute hepatitis C B17.10 [facility] [place] [address] Aug, Acute hepatitis C B17.10 [facility] CRISTELA [place] and Dizziness R42 [address] Aug, [facility] [place] [address] Aug, [facility] [place] [address] Aug, Anxiety F41.9 and Sleep [facility] CRIST[place] disorder G47.9 [address] Aug, [facility] [place] [address] [facility] [address] Jul, [place] [address] Al[place] [address] [employer] [place] Jul, [facility] Medical [place] [address] Al[place] [address] [employer] [place] Jul, Acute hepatitis C B17.10 [facility] Medical [place] [address] Alfon[place] [address] [employer] [place] Jul, [facility] [place] [address] Case [facility] [address] [place], [place] [address] Case Management [address] [place], [place] [address] [place] [address] [employer] [place] Jul, [facility] [place] [address] Case Management [address] Alfon[place], [place] [address] [place] [address] [employer] [place] Jul, Anxiety F41.9 ; Sleep [facility] Medical Alfonso [place] CRISTELA disorder G47.9 and Acute [address] hepatitis C B17.10 Al[place] [address] [employer] [place] Jul, [facility] Alfonso [place] [address] Formerly [facility] [address] [facility] Jun, [place] [address] Alfonso [place] [address] [employer] [place] Jun, Anxiety F41.9 [facility] [place] [address] [place] [address] [employer] [place] Jun, [facility] [place] [address] Case Management [address] Alfon[place], [place] [address] [place] [address] [employer] [place] May, Encounter for general adult [facility] Alfonso Goetz [place] w/[place] [address] abnormal findings Z00.00 Case Management [address] [place], [place] [address] Case Management [address] Al[place], [place] [address] [place] [address] [employer] [place] May, [facility] Alfonso [place] [address] [place] [address] [employer] [place] May, Hep C w/o coma, chronic [facility] CRISTELA [place] B18.2 [address] [place] [address] [employer] [place] May, Hep C w/o coma, chronic [facility] Alfonso [place]etz CRIST[place] B18.2 [address] [place] [address] May, [place] [address] May, [place] [address] May, [facility] [place] [address] Apr, [place] [address] [facility] [address] [place] Apr, [facility] [place] [address] Apr, Elevated BP without [facility] [place] diagnosis of hypertension [address] R03.0 Facilitated Enrollment [address] [place] Apr, - [facility] [address] Apr, Chronic viral hepatitis C [facility] [place] B18.2 ; Cryoglobulinemia [address] D89.1 ; Nicotine dependence, cigarettes, uncomplicated F17.210 and Cocaine abuse in remission F14.10 [facility] [address] [place], [place] [address] September, [place] [address] September, [place] [address] September, [place] [address] September, [place] [address] September, [place] [address] Case Management [address] [place], [place] [address] [address] [place] September, History of heroin abuse [facility] [place] Z87.898 and Cann[place] [address] dependence, abuse F12.20 [address] [place] September, [facility] [place] [address] [address] [place] September, Excessive sweating R61 ; [facility] [place] Erectile dysfunction, [address] unspecified erectile dysfunction type N52.9 ; Ejaculatory disorder N53.19 ; Sleep disorder G47.9 and Anxiety F41.9 Case Management [address] [place], September, [address] Aug, [place] [address] Aug, [facility] [place] Case Management [address] [place], Aug, [address] Aug, Routine general medical [facility] [place] examination [place] [address] care facility Z00.00 ; History of hepatitis C Z86.19 ; Nicotine dependence, cigarettes, uncomplicated F17.210 ; History of heroin abuse Z87.898 ; Cannabis dependence, abuse F12.20 ; Screening examination for sexually transmitted disease Z11.3 ; Special screening examination for other specified viral diseases Z11.59 ; Allergic rhinitis J30.9 ; Depression F32.9 and Skin disorder L98.9 [place] [address] [address] [facility] Aug, [place] [address] Aug, Dizziness R42 ; BPH ( benign [place] prostatic hypertrophy) with urinary retention N40.0 and Tinnitus, bilateral H93.[address] Aug, [place] [address] Aug, [place] [address] Aug, [place] [address] Aug, [place] [address] Aug, [place] [address] Aug, History of hepatitis C [place] Z86.19 ; Localized edema [address] R60.0 ; Chronic viral hepatitis C B18.2 and Cryoglobulinemia D89.1 Case Management [address] [place], Aug, [address] Aug, History of hepatitis C [place] Z86.19 [address] [facility] [address] [place] Aug, [place] [address] Jul, Low back pain M54.5 ; [place] edema R60.0 and Dysuria R30.[address] Jul, BPH (benign prostatic [place] hypertrophy) with urinary [address] retention N40[address] Jul, Low back pain M54.5 ; [place] edema R60.0 ; BPH (benign [address] prostatic hypertrophy) with urinary retention N40.0 ; Acute hepatitis C B17.10 and Elevated liver enzymes R74.[address] Jun, Hepatitis C virus [place] infection, unspecified chronicity B19.[address] May, [address] May, Routine general medical [place] examination [place] [address] care facility Z00.00 ; History of hepatitis C Z86.19 ; Nicotine dependence, cigarettes, uncomplicated F17.210 ; History of heroin abuse Z87.898 ; Cannabis dependence, abuse F12.20 ; Screening examination for sexually transmitted disease Z11.3 ; Special screening examination for other specified viral diseases Z11.59 ; Allergic rhinitis J30.9 ; Depression F32.9 and Skin disorder L98.9 Facilitated Enrollment UNKNOWN May, - [address] Apr, Anxiety 300.[address] Mar, Stress headaches F45.[address] Mar, Dysuria R30.[address] Mar, [address] Mar, [place] [address] Alfonso Go[place] [address] Feb, [facility] [place] [address] Feb, [facility] [place] [address] [place] Feb, Right ankle injury S99.911A [facility] [place] [address] Feb, [facility] [place] [address] Jan, Injury of right knee, leg [facility] [place] ankle and foot 959.7 and [address] Dysuria [address] Jan, [facility] [place] [address] Jan, Right ankle pain 719.47 [facility] [place] [address] Jan, [facility] [place] [address] Jan, Right ankle pain 719.47 and [facility] [place] Cannabis abuse 305.20 [address] Jan, [facility] [place] [address] Jan, Elevated liver enzymes [facility] [place] 790.5 [address] Jan, Elevated liver function [facility] [place] tests 790.6 [address] Jan, Anxiety 300.00 ; History of [facility] [place] heroin abuse 305.53 ; COCAINE ABUSE-IN REMISS 305.63 ; History of hepatitis C V12.09 and Tobacco use disorder 305.[address] Dec, [facility] [place] [address] Dec, [facility] [place] [address] Nov, Skin disorder 709.9 ; [facility] [place] History of heroin abuse 305.53 ; Low back pain 724.2 ; COCAINE ABUSE-IN REMISS 305.63 and Vomiting 787.[address] Nov, Anxiety 300.00 [facility] [place] [address] Oct, [facility] [place] [address] [facility] [address] [place], [place] [address] Oct, Degenerative disc disease , [facility] [place] lumbar 722.52 ; History of heroin abuse 305.53 ; COCAINE ABUSE-IN REMISS 305.63 ; Back pain 724.5 and Anxiety 300.[address] September, [facility] [place] [address] Jul, [facility] [place] Jun, [facility] [place] [address] May, [place] [address] [facility] May, [facility] [place] [address] [facility] Apr, [facility] [place] [address] Mar, [place] [address] Mar, Routine general medical [place] examination at a [address] V70.0 ; Low back pain 724.2 ; Anxiety disorder 300.00 ; History of hepatitis C V12.09 ; Need for influenza vaccination V04.81 and VACCIN FOR DISEASE NEC V05.[address] May, [place] [address] May, [place] [address] May, Low back pain 724.2 [place] [address] IMMUNIZATIONS Vaccine Route Administration Date Status [facility] Alfluria 3 yrs and older Quad IM Intramuscular Mar 17, 2019 Administered SOCIAL HISTORY Never Assessed REASON FOR REFERRAL FUNCTIONAL STATUS PLAN OF CARE Activity Details Follow Up prn Reason: VITAL SIGNS Temperature 96.9 degrees Fahrenheit 2019-03-17 Height 72.0 in 2019-03-17 MEDICATIONS Medication Instructions Dosage Frequency Start End Duration Status Date Date Nicoderm CQ 21 Transdermal Once 1 patch to 24h 14 days Active MG/24HR a day skin JOSE Wrist Device daily Use on 24h Nov, 30 day(s) Not-Takin Brace/Splint - right 2018 g wrist PROCEDURES Procedure Date Ordered Result Body Site Flu Immunization Administration Mar 17, 2019 [facility] Drewluria 3 yrs and older Quad Mar 17, 2019 RESULTS No Results REASON FOR VISIT Influenza Vaccine Insurance Providers [facility] Member Patient Patient Patient Patient Patient Subscriber Subscriber Subscriber Group Insurance Plan Plan Plan Plan ID Relationship Address Phone Name Date of ID Name Date of No Type Insurance Insurance Insurance Coverage to Subscriber Address Phone Name Dates [facility] Slide [phone] [facility] Slide self Ivan [id number] M Family [place] 02 M Family [place] [id number] Planning Full Fee Full Fee Blue [phone] Blue self Ivan [id number] Choice Opt [id number] Choice Opt Colf 6 Medical [employer] Medical [id number] Blue [phone] Blue self Ivan [id number] Choice Opt 9255 Attn 83 Choice Opt Colf [id number] [place] [id number] [place] [facility]plex [place] [facility] [address] Medicaid [phone] Medicaid self Ivan [id number] Wrap [facility] 56 Wrap [place] [address] Case [phone] Case self Ivan [id number] Management [place] 02 Management Colf [facility] [address] [facility] Medicaid [address] [phone] Medicaid self Ivan [id number] [facility] [address] [address] MEDICAL (GENERAL) HISTORY Type Description Date Medical History Depression /anxiety Medical History Heroin and cocaine addcition (remission 9.28/12)-05/08/13was when he last used IVDU- has used [...] incarcerated - 3 times- has been in [employer] [facility] -97 days is on parole Medical History is in [facility] - 04/05 Medical History 12/04/14ED visit for skin lesion Medical History 11/28/14 ED visit overdose synthetic THC Medical History 01/22/15 smoking THC Medical History February Detox again -for 2weeks , [place] - hematuria while there Medical History 04/14/15 ED visit red spots on legs - atarax - dermatology referral Medical History released from senior care 05/27/16 Medical History 06/29/16 dermatology consult guttate [...]
--- OUTSIDE RECORDS SUMMARY | 2019-04-02 10:59 | XMS REPORT ---
:1980 Author Organization [facility] Address [address] [place] [address] Care Team Providers Name Role Phone Keely Rangel Unavailable Unavailable PROBLEMS Type Condition ICD9-CM MOF86-TS Onset Condition SNOMED Code Code Code Dates Status Problem Low back pain M54.5 Active 621611574 Problem History of hepatitis Z86.19 Active 397530789 C Problem Acute hepatitis C B17.10 Active 368047011 Problem Cocaine abuse in F14.10 Active 089320454 remission Problem Cryoglobulinemia D89.1 Active 728252635385549 Problem BPH (benign N40.0 Active 834911924 prostatic hypertrophy) with urinary retention Problem Tinnitus, bilateral H93.13 Active 6406720078927 Problem Chronic viral B18.2 Active 907793152 hepatitis C Problem Erectile N52.9 Active 590355319 dysfunction, unspecified erectile dysfunction type Problem Hep C w/o coma, B18.2 Active 846026126 chronic Problem Chronic pain after G89.29 Active 619728196 traumatic injury Problem 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 70223898 personality disorder Problem Sleep disorder G47.9 Active 32668906 Problem History of heroin Z87.898 Active 956998026232245 abuse Problem Mood disorder F39 Active 70764255 Problem Anxiety F41.9 Active 02087135 Problem Cannabis dependence, F12.20 Active 13526019 abuse Problem Nicotine dependence, F17.210 Active 51325412 cigarettes, uncomplicated Problem Pain, chronic due to G89.21 Active 356432294 trauma Problem Tinnitus of both H93.13 Active 1770477611948 ears Problem Environmental Z91.09 Active 340087043 allergies Problem Reactive depression F32.9 Active 65881689 (situational) ALLERGIES No Information ENCOUNTERS Encounter Location Date Diagnosis [address] Mar, [facility] C[place]STELA [place] [address] [address] [place] Mar, [facility] [place] [address] Mar, Dehiscence of operative [facility] CRISTELA Chacon wound, initial encounter [address] T81.31XA ; Discharge from wound T14.8XXA and Closed fracture of right ankle, sequela S82.891S [address] Mar, Anxiety F41.9 and [facility] [place] Antisocial personality [address] disorder F60.[address] Feb, Encounter for immunization [facility] CRISTELA Chacon Z23 [address] Feb, [place] [address] Feb, [facility] Alfonso Goetz [place] [address] Feb, Anxiety F41.9 and [facility] [place] Antisocial personality [address] disorder F60.[address] Feb, Dehiscence of operative [facility] CRISTELA Chacon wound, initial encounter [address] T81.31XA and Discharge from wound T14.8XXA [address] Feb, [facility] Alfonso Goetz [place] [address] Feb, [place] [address] Feb, Anxiety F41.9 and [facility] [place] Antisocial personality [address] disorder F60.2 [place] [address] [facility] Feb, [place] [address] right tibia Z87.81 and Right foot pain M79.[address] [place] Feb, 2019 [facility] C[place]STEL[place] Theodore [address] Feb, [facility] [place], [place] [address] [address] [place] Feb, [facility] [place] [address] Feb, Anxiety F41.9 ; History of [place] heroin abuse Z87.898 ; [address] Cannabis dependence, abuse F12.20 and Cocaine abuse in remission F14.[address] Feb, Mood disorder F39 and [place] Antisocial personality [address] disorder F60.[address] Jan, Anxiety F41.9 and [place] Antisocial personality [address] disorder F60.[address] Jan, Anxiety F41.9 [place] [address] Jan, [place] [address] Jan, Anxiety F41.9 [place] [address] Dec, [place] [address] Dec, Anxiety F41.9 ; Mood [place] disorder F39 and Antisocial [address] personality disorder F60.[address] Dec, Anxiety F41.9 [place] [address] Dec, [place] [address] Dec, [place] [address] Dec, Mood disorder F39 and [place] Antisocial personality [address] disorder F60.[address] Nov, [place] [address] (situational) F32.9 [address] [place] Nov, Right wrist pain M25.531 [place] and Environmental allergies [address] Z91.09 [facility] Nov, [facility] [place] [address] [address] [place] September, [place] [address] September, [facility] [place] [address] [address] Jul, Herpes zoster [facility] CRISTELA Chacon complication B02.9 [address] Jul, [place] [address] Jul, Tinnitus of both ears [place] H93.13 [address] May, Encounter for general adult [facility] [place]EL[place] w/o [address] abnormal findings Z00.00 Alfonso Goetz [address] May, [facility] [place] [address] Apr, [place] [address] Feb, Chronic pain after [place] traumatic injury G89.29 [address] Feb, [place] [address] Jan, [place] [address] Alfonso Goetz [address] Jan, History of hepatitis C [facility] CRISTELA Chacon Z86.19 [address] [address] [address] Jan, [facility] [place] [address] Alfonso Goetz [address] Dec, Bilateral edema of lower [facility] CRISTELA Chacon extremity R60.0 [address] [place] [address] Nov, Skin lesion of right arm [facility] CRISTELA Chacon L98.9 [address] [address] [address] Nov, [facility] [place] [address] [address] [address] Nov, [facility] C[place]STEL[place] [address] Nov, [place] [address] [facility] [address] [place] [address] Oct, [place] [address] Oct, [place] [address] [address] Oct, [facility] C[place]STEL[place] [address] Oct, [facility] C[place]ST[place] [address] [facility] [address] [facility] Oct, [place] [address] [address] [address] Oct, [facility] C[place]STEL[place] [address] Oct, [place] [address] Oct, Lower abdominal pain R10.30 [facility] CRISTELA Chacon ; Strain of lumbar [address] paraspinous muscle, initial encounter S39.012A and History of hepatitis C Z86.[address] Oct, History of hepatitis C [facility] MelvinCRISTELA Arnold Z86.19 [address] Oct, Right lower quadrant [facility] CRISTELA Chacon abdominal pain R10.31 ; [address] Anxiety F41.9 and Bone spur M77.9 [facility] [address] [facility] Oct, [place] [address] [place] [address] [place] September, [facility] [place]ST[place] [address] [facility] [address] [facility] September, [place] [address] [address] September, [facility] C[place]ST[place] [address] [address] [place] September, Abrasion of left cornea, [facility] CRISTELA Chacon initial encounter S05.02XA [address] [address] [place] September, [facility] C[place]STEL[place] [address] Case Management [address] [place], [place] [address] [address] [place] Aug, [facility] C[place]ST[place] [address] [address] [place] Aug, Acute hepatitis C B17.10 [facility] [place]ST[place] [address] [address] [place] Aug, [facility] [place] [address] [address] [place] Aug, Acute hepatitis C B17.10 [facility] Alfonso Goetz [place] and Dizziness R42 [address] Alfonso Goetz [address] [place] Aug, [facility] [place] [address] Alfonso Goetz [address] [place] Aug, Anxiety F41.9 and Sleep [facility] CRISTELA Chacon disorder G47.9 [address] [address] [place] Aug, [facility] C[place]ST[place] [address] [facility] [address] [facility] Jul, [place] [address] Alfonso Goetz [address] [place] Jul, [facility] [place]ST[place] [address] [address] [place] Jul, Acute hepatitis C B17.10 [facility] C[place]ST[place] [address] Alfonso Goetz [address] [place] Jul, [facility] Alfonso Goetz C[place]ST[place]A [address] Case Management [address] Alfon[place] Goetz, [place] [address] Case Management [address] [place], [place] [address] Alfonso Goetz [address] [place] Jul, [facility] [place] [address] Case Management [address] [place], [place] [address] [place] [place] Jul, Anxiety F41.9 ; Sleep [facility] CRISTELA Chacon disorder G47.9 and Acute [address] hepatitis C B17.10 [address] [place] Jul, [facility] Alfonso Goetz [place] [address] Jun, [place] [address] Alfonso Goetz [place] [address] [address] [place] Jun, Anxiety F41.9 [facility] Alfonso Goetz [place] [address] [place] [address] [address] [place] Jun, [facility] lAfonso Goetz C[place]A [address] Case Management [address] [place] Go[place], [place] [address] [place] [address] [address] [place] May, Encounter for general adult [facility] [place]EL[place] w/[place] [address] abnormal findings Z00.00 Case Management [address] [place], [place] [address] Case Management [address] [place], [place] [address] [address] [place] May, [facility] [place] [address] [address] [place] May, Hep C w/o coma, chronic [facility] [place] B18.2 [address] [place] [address] [place] May, Hep C w/o coma, chronic [facility] [place] B18.2 [address] [address] [place] May, [facility] [place] [address] [address] [place] May, [facility] [place] [address] [address] [place] May, [facility] Arnold [address] [address] [place] Apr, [facility] [place] [address] [facility] [address] [place] Apr, [facility] [place] [address] [address] [place] Apr, Elevated BP without [facility] Al[place] diagnosis of hypertension [address] R03.0 Facilitated Enrollment [address] [place] Apr, [facility]nu [place] [address] [place], [place] [address]ball [place] Apr, Chronic viral hepatitis C [facility] [place] B18.2 ; Cryoglobulinemia [address] D89.1 ; Nicotine dependence, cigarettes, uncomplicated F17.210 and Cocaine abuse in remission F14.10 Case Management [address] [place], [place] [address] [address] [place] September, [facility] [place] [address] [place] [address] [place] September, [facility] [place] [address] [place] [address] [address] [place] September, [facility] [place] [address] [address] [place] September, [facility] [place]ST[place] [address] [address] [place] September, [facility] [place]ST[place] [address] Case Management [address] [place], September, [address] September, History of heroin abuse [facility] [place] Z87.898 and Cannabis dependence, abuse F12.[address] September, [facility] Al[place] [address] [place] [address] September, Excessive sweating R61 ; [facility] [place] Erectile dysfunction, unspecified erectile dysfunction type N52.9 ; Ejaculatory disorder N53.19 ; Sleep disorder G47.9 and Anxiety F41.9 Case Management [address] [place], September, [address] Aug, [facility] Al[place] Aug, [facility] [place] [address] Case Management [address] [place], Aug, [address] Aug, Routine general medical [facility] [place] examination at a [place] [address] care facility Z00.00 ; History of hepatitis C Z86.19 ; Nicotine dependence, cigarettes, uncomplicated F17.210 ; History of heroin abuse Z87.898 ; Cannabis dependence, abuse F12.20 ; Screening examination for sexually transmitted disease Z11.3 ; Special screening examination for other specified viral diseases Z11.59 ; Allergic rhinitis J30.9 ; Depression F32.9 and Skin disorder L98.[address] Aug, [place] [address] Aug, Dizziness R42 ; BPH ( benign [facility] [place] prostatic hypertrophy) with urinary retention N40.0 and Tinnitus, bilateral H93.13 [address] [place] Aug, [facility] [place] [address] Aug, [facility] [place] [address] [place] [address] Aug, [facility] [place] [address] [address] [place] Aug, [facility] [place] [address] Aug, [place] [address] Aug, History of hepatitis C [place] Z86.19 ; Localized edema [address] R60.0 ; Chronic viral hepatitis C B18.2 and Cryoglobulinemia D89.1 Case Management [address] [place], Aug, [address] Aug, History of hepatitis C [place], [place] Z86.19 [address] Aug, [place] [address] Jul, Low back pain M54.5 ; [place] edema R60.0 and Dysuria [address] Jul, BPH (benign prostatic [place] hypertrophy) with urinary [address] retention N[address] Jul, Low back pain M54.5 ; [place] edema R60.0 ; BPH (benign [address] prostatic hypertrophy) with urinary retention N40.0 ; Acute hepatitis C B17.10 and Elevated liver enzymes R74.[address] Jun, Hepatitis C virus [place] infection, unspecified [address] chronicity B19.[address] May, [place] [address] May, Routine general medical [place] examination at a [place] [address] care facility Z00.00 ; History of hepatitis C Z86.19 ; Nicotine dependence, cigarettes, uncomplicated F17.210 ; History of heroin abuse Z87.898 ; Cannabis dependence, abuse F12.20 ; Screening examination for sexually transmitted disease Z11.3 ; Special screening examination for other specified viral diseases Z11.59 ; Allergic rhinitis J30.9 ; Depression F32.9 and Skin disorder L98.9 Facilitated Enrollment UNKNOWN May, - [address] Apr, Anxiety 300.00 [facility] [place] [address] Mar, Stress headaches F45.41 [facility] [place] [address] Mar, Dysuria R30.0 [facility] [place] [address] Mar, [facility] [place] [address] Mar, [facility] [place] [address] Feb, [facility] [place] [address] Feb, [facility] [place] [address] Feb, Right ankle injury S99.911A [facility] [place] [address] Feb, [facility] [address] Jan, Injury of right knee, leg [facility] [place] ankle and foot 959.7 and [address] Dysuria 7[address] Jan, [facility] [place] [address] Jan, Right ankle pain 719.47 [facility] [address] Jan, [facility] [place] [address] Jan, Right ankle pain 719.47 and [facility] [place] Cannabis abuse 305.20 [address] Jan, [facility] [place] [address] Jan, Elevated liver enzymes [facility] [place] 790.5 [address] Jan, Elevated liver function [facility] [place] tests 790.6 [address] Jan, Anxiety 300.00 ; History of [facility] [place] heroin abuse 305.53 ; COCAINE ABUSE-IN REMISS 305.63 ; History of hepatitis C V12.09 and Tobacco use disorder 305.[address] Dec, [facility] [place] [address] Dec, [facility] [place] [address] Nov, Skin disorder 709.9 ; [facility] [place] History of heroin abuse 305.53 ; Low back pain 724.2 ; COCAINE ABUSE-IN REMISS 305.63 and Vomiting 787.[address] Nov, Anxiety 300.00 [facility] [place] [address] [place] [address] Oct, [facility] [place] [address] [facility] [address] [place], [place] [address] Oct, Degenerative disc disease , [facility] [place] lumbar 722.52 ; History of heroin abuse 305.53 ; COCAINE ABUSE-IN REMISS 305.63 ; Back pain 724.5 and Anxiety 300.[address] September, [facility] [place] [address] Jul, [facility] [place] [address] Jun, [facility] [place] [address] May, [facility] [place] [address] [facility] [address] Al[place] May, [facility] [place] [address] [facility] [address] [place] Apr, [facility] [place] [address] Mar, [facility] [place] [address] Mar, Routine general medical [facility] [place] examination at a [address] facility V70.0 ; Low back pain 724.2 ; Anxiety disorder 300.00 ; History of hepatitis C V12.09 ; Need for influenza vaccination V04.81 and VACCIN FOR DISEASE NEC V05.8 [facility] [address] [place] [address] May, [place] [address] [facility] [address] [place] [address] May, [place] [address] [facility] [address] [place] [address] May, Low back pain 724.2 [place] [address] IMMUNIZATIONS No Known Immunizations SOCIAL HISTORY Never Assessed REASON FOR REFERRAL FUNCTIONAL STATUS PLAN OF CARE Activity Details Follow Up 1 Week Reason: VITAL SIGNS MEDICATIONS Medication Instructions Dosage Frequency Start End Duration Status Date Date Nicoderm CQ 21 Transdermal Once 1 patch to 24h 14 days Active MG/24HR a day skin JOSE Wrist Device daily Use on 24h Nov, 30 day(s) Not-Takin Brace/Splint - right 2018 g wrist PROCEDURES No Known procedures RESULTS No Results REASON FOR VISIT Insurance Providers [facility] Health Member Patient Patient Patient Patient Patient Subscriber Subscriber Subscriber Group Insurance Plan Plan Plan Plan ID Relationship Address Phone Name Date of ID Name Date of No Type Insurance Insurance Insurance Coverage to Subscriber Address Phone Name Dates Blue [phone] Blue self Ivan 1980 [id number] [place] [id number] Choice Opt Colf 6 Medical [facility] Medical [address] [address] [phone] Medicaid self Ivan 1980 [id number] [facility] [address] [address] Medicaid [address] [phone] Medicaid self Ivan [id number] Wrap [facility] 56 Wrap [place] [address] Blue [phone] Blue self Ivan [id number] Choice Opt 9255 Attn 83 Choice Opt Colf [place]457 [place] [id number] [place] [facility] [place] [facility] [place] [facility] [address] Case [phone] Case self Ivan [id number] Management [place] 02 Management Colf [facility] [address] [facility] Slide [phone] [facility] Slide self Ivan [id number] M Family [place] 02 M Family Colf [place] [address] Planning Full Fee Full Fee MEDICAL (GENERAL) [...] incarcerated - 3 times- has been in [facility] -97 days is on parole Medical History is in [facility] - 04/05 Medical History 12/04/14ED visit for skin lesion Medical History 11/28/14 ED visit overdose synthetic THC Medical History 01/22/15 smoking THC Medical History February Detox again -for 2weeks , [place] - hematuria while there Medical History 04/14/15 ED visit red spots on legs - atarax - dermatology referral Medical History released from senior living 05/27/16 Medical History 06/29/16 dermatology consult guttate psoriasis, triamincinolone Medical History 07/09/16 ED visit laceration Medical History 11/10/17 fell off roof , ER fractures legs, ankle , admitted , surgery Medical History 11/29/17 removedd ORIF , sutures and splint Medical History 09/20/18 ENT consult tinnitus Medical History 11/30/18 Orthopedic f/u doing well , may have plate removed in Sept Medical History 03/12/19 DCB Orthopedic consult right ankle pain , right [...]
--- OUTSIDE RECORDS SUMMARY | 2019-04-02 11:00 | XMS REPORT ---
:1980 Author Organization [facility] Medical Address [address] [place] [address] Care Team Providers Name Role Phone Diana Grimes Unavailable Unavailable PROBLEMS Type Condition ICD9-CM [id number] Onset Condition SNOMED Code Code Code Dates Status Problem Low back pain M54.5 Active 432562434 Problem History of hepatitis Z86.19 Active 528358302 C Problem Acute hepatitis C B17.10 Active 712720436 Problem Cocaine abuse in F14.10 Active 316095524 remission Problem Cryoglobulinemia D89.1 Active 554848828747261 Problem BPH (benign N40.0 Active 323479712 prostatic hypertrophy) with urinary retention Problem Tinnitus, bilateral H93.13 Active 6718737102073 Problem Chronic viral B18.2 Active 891355735 hepatitis C Problem Erectile N52.9 Active 982506331 dysfunction, unspecified erectile dysfunction type Problem Hep C w/o coma, B18.2 Active 712094627 chronic Problem Chronic pain after G89.29 Active 582755701 traumatic injury Problem 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 87750235 personality disorder Problem Sleep disorder G47.9 Active 94760568 Problem History of heroin Z87.898 Active 529423756217424 abuse Problem Mood disorder F39 Active 70764836 Problem Anxiety F41.9 Active 30460692 Problem Cannabis dependence, F12.20 Active 32664678 abuse Problem Nicotine dependence, F17.210 Active 66388984 cigarettes, uncomplicated Problem Pain, chronic due to G89.21 Active 384432892 trauma Problem Tinnitus of both H93.13 Active 6340492257010 ears Problem Environmental Z91.09 Active 139589923 allergies Problem Reactive depression F32.9 Active 59329209 (situational) ALLERGIES No Information ENCOUNTERS Encounter Location Date Diagnosis [place] [id number] Nov, 2019 [facility] [place] [address] Feb, [facility] [place] [address] Feb, [facility] [place] [address] Feb, Anxiety F41.9 and [place] Antisocial personality [address] disorder [address] Feb, Dehiscence of operative [facility] [place] wound, initial encounter [address] T81.31XA and Discharge from wound T14.8XXA [address] Feb, [place] [address] Feb, [place] [address] Feb, Anxiety F41.9 and [place] Antisocial personality [address] disorder F60.[address] Feb, [place] [address] right tibia Z87.81 and Right foot pain M79.[address] [place] Feb, 2019 [place] [address] Feb, [facility] [address] Feb, [place] [address] Feb, Anxiety F41.9 ; History of [place] heroin abuse Z87.898 ; [address] Cannabis dependence, abuse F12.20 and Cocaine abuse in remission F14.[address] Feb, Mood disorder F39 and [place] Antisocial personality [address] disorder F60.[address] Jan, Anxiety F41.9 and [place] Antisocial personality [address] disorder F60.[address] Jan, Anxiety F41.9 [place] [address] Jan, [place] [address] Jan, Anxiety F41.9 [facility] Alfonso Go[place] [address] [facility] [address] [facility] Dec, [place] [address] Dec, Anxiety F41.9 ; Mood [facility] [place] C[place]STELA disorder F39 and Antisocial [address] personality disorder F60.[address] Dec, Anxiety F41.9 [facility] [place] [address] Dec, [facility] [place] [address] Dec, [facility] Al[place] [address] Dec, Mood disorder F39 and [facility] [place] Antisocial personality [address] disorder F60.2 [place] [id number] [facility] Nov, [place] [address] (situational) F32.[address] Nov, Right wrist pain M25.531 [facility] and Environmental allergies [address] Z91.09 [facility] Nov, [facility] [place] [address] September, [facility] [place] [address] September, [facility] [place] [address] Jul, Herpes zoster without [facility] [place] complication B02.9 [address] [facility] [address] [facility] Jul, [place] [address] [facility] [address] [facility] Jul, Tinnitus of both ears [place] H93.13 [address] [place] [place] May, [facility] [place] [address] [address] [place] May, Encounter for general adult [facility] [place] medical [place] w/[place] [address] abnormal findings Z00.00 [facility] [address] [facility] Apr, [place] [address] [facility] [address] [place] [address] Feb, Chronic pain after [place] traumatic injury G89.29 [address] [facility] [address] [facility] Feb, [place] [address] Jan, [place] [address] [place] [address] [facility] [place] Jan, History of hepatitis C [facility] CRISTELA [place] Z86.19 [address] [place] [address] [place] Jan, [facility] [place] [address] [place] [address] [place] Dec, Bilateral edema of lower [facility] [place] extremity R60.0 [address] [place] [address] [place] Nov, Skin lesion of right arm [facility] C[place]STEL[place] L98.9 [address] [place] [address] [place] Nov, [facility] [place] [address] Al[place] [address] [place] Nov, [facility] [place] [address] [address] Nov, [place] [address] [facility] [address] [place] [address] Oct, [place] [address] [facility] [address] [place] [address] Oct, [place] [address] Al[place] Go[place] [address] [place] Oct, [facility] [place] [address] [place] [address] [place] Oct, [facility] [place] [address] [address] Oct, [place] [address] [place] [address] [place] Oct, [facility] [place] [address] [facility] [address] [place] [address] Oct, [place] [address] [place] [address] [place] Oct, Lower abdominal pain R10.30 [facility] [place] ; Strain of lumbar [address] paraspinous muscle, initial encounter S39.012A and History of hepatitis C Z86.[address] Oct, History of hepatitis C [facility] [place] Z86.19 [address] Oct, Right lower quadrant [facility] CRISTELA [place] abdominal pain R10.31 ; [address] Anxiety F41.9 and Bone spur M77.[address] Oct, [place] [address] [address] September, [facility] [place] [address] [address] September, [place] [address] September, [facility] [place] [address] September, Abrasion of left cornea, [facility] C[place]ST[place]acon initial encounter S05.02XA [address] September, [facility] [place] [address] Case Management [address] [place], [place] [address] Aug, [facility] [place] [address] [address] Aug, Acute hepatitis C B17.10 [facility] [place] [address] Aug, Acute hepatitis C B17.10 [facility] C[place]ST[place] and Dizziness R42 [address] Aug, [facility] [place] [address] Aug, [facility] [place] [address] [address] [place] Aug, Anxiety F41.9 and Sleep [facility] [place] disorder G47.9 [address] Aug, [facility] [place] [address] Jul, [place] [address] [address] [place] Jul, [facility] [place] [address] [place] [address] [place] Jul, Acute hepatitis C B17.10 [facility] [place] [address] Alfonso Goetz [address] [place] Jul, [facility] [place] [address] [facility] [address] [place], [place] [address] [facility] [address] [place], [place] [address] [address] [place] Jul, [facility] [place] [address] [facility] [address] [place], [place] [address] [address] [address] [facility] [place] Jul, Anxiety F41.9 ; Sleep [facility] [place] disorder G47.9 and Acute [address] hepatitis C B17.10 [address] [address] [address] [place] Jul, [facility] Alfonso Goetz [place] [address] Jun, [place] [address] [place] [address] [facility] [place] Jun, Anxiety F41.9 [facility] [place] [address] [address] [address] [address] [facility] [place] Jun, [facility] [place] [address] [facility] [address] [place], [place] [address] [address] [address] [address] [place] May, Encounter for general adult [facility] Alfonso Go[place] w/[place] [address] abnormal findings Z00.00 [facility] [address] [place], [place] [address] [facility] [address] [place], [place] [address] [address] [address] [address] [facility] [place] May, [facility] [place] [address] [address] [address] [address] [facility] [place] May, Hep C w/o coma, chronic [facility] Al[place] Go[place] B18.2 [address] [address] [address] [address] [facility] [place] May, Hep C w/o coma, chronic [facility] C[place]ST[place] B18.2 [address] [place] [address] [facility] [place] May, [facility] [place] [address] May, [facility] [place] [address] May, [facility] [place] [address] Apr, [facility] [place] [address] [facility] [address] [place] Apr, [facility] [place] [address] Apr, Elevated BP without [place] diagnosis of hypertension [address] R03.0 Facilitated Enrollment [address] [place] Apr, - [place], [place] [address] [place] [address] Apr, Chronic viral hepatitis C [facility] [place] B18.2 ; Cryoglobulinemia D89.1 ; Nicotine dependence, cigarettes, uncomplicated F17.210 and Cocaine abuse in remission F14.10 [facility] [address] [place], Oct, [address] September, [facility] [address] September, [facility] [address] September[place] [facility] [place] [address] September, [facility] [address] September, [place] [address] Case Management [address] [place], September, [address] [place] September, History of heroin abuse [place] Z87.898 and Cannabis [address] dependence, abuse F12.20 [address] [place] September, [facility] [address] [address] [place] September, Excessive sweating R61 ; [facility] [place] Erectile dysfunction, [address] unspecified erectile dysfunction type N52.9 ; Ejaculatory disorder N53.19 ; Sleep disorder G47.9 and Anxiety F41.9 [facility] [address] [place], [place] [address] Aug, [facility] [place] [address] Aug, [facility] [place] [address] Case Management [address] Al[place], Aug, [address] Aug, Routine general medical [facility] [place] examination [place] a [place] [address] care facility Z00.00 ; History of hepatitis C Z86.19 ; Nicotine dependence, cigarettes, uncomplicated F17.210 ; History of heroin abuse Z87.898 ; Cannabis dependence, abuse F12.20 ; Screening examination for sexually transmitted disease Z11.3 ; Special screening examination for other specified viral diseases Z11.59 ; Allergic rhinitis J30.9 ; Depression F32.9 and Skin disorder L98.9 [place] [address] [address] [facility] Aug, [place] [address] Aug, Dizziness R42 ; BPH ( benign [facility] [place] prostatic hypertrophy) [place] [address] urinary retention N40.0 and Tinnitus, bilateral H93.[address] Aug, [facility] [place] [address] Aug, [facility] [place] [address] Aug, [facility] [place] [address] Aug, [facility] [place] [address] Aug, [facility] [place] [address] Aug, History of hepatitis C [facility] [place] Z86.19 ; Localized edema [address] R60.0 ; Chronic viral hepatitis C B18.2 and Cryoglobulinemia D89.1 Case Management [address] [place], [place] [address] Aug, History of hepatitis C [place] Z86.19 [address] Aug, [place] [address] Jul, Low back pain M54.5 ; [place] edema R60.0 and Dysuria R30.[address] Jul, BPH (benign prostatic [place] hypertrophy) with urinary retention N40.[address] Jul, Low back pain M54.5 ; [place] edema R60.0 ; BPH (benign prostatic hypertrophy) with urinary retention N40.0 ; Acute hepatitis C B17.10 and Elevated liver enzymes R74.[address] Jun, Hepatitis C virus [place] infection, unspecified chronicity B19.[address] May, [address] May, Routine general medical [place] examination [place] a [place] [address] care facility Z00.00 ; History of hepatitis C Z86.19 ; Nicotine dependence, cigarettes, uncomplicated F17.210 ; History of heroin abuse Z87.898 ; Cannabis dependence, abuse F12.20 ; Screening examination for sexually transmitted disease Z11.3 ; Special screening examination for other specified viral diseases Z11.59 ; Allergic rhinitis J30.9 ; Depression F32.9 and Skin disorder L98.9 Facilitated Enrollment UNKNOWN May, - [address] Apr, Anxiety 300.[address] [place] [address] Mar, Stress headaches F45.[address] Mar, Dysuria R30.[address] Mar, [address] Mar, [address] Feb, [address] Feb, [facility] [place] [address] Feb, Right ankle injury S99.911A [facility] [place] [address] Feb, [facility] [place] [address] [address] Jan, Injury of right knee, leg [facility] [place] ankle and foot 959.7 and Dysuria 788.[address] Jan, [facility] Alfonso Goetz [place] [address] [address] Jan, Right ankle pain 719.47 [facility] [place] [address] [address] Jan, [facility] Alfonso Goetz [place] [address] Jan, Right ankle pain 719.47 and [facility] [place] Cannabis abuse 305.20 [address] Jan, [facility] Alfonso Goetz [place] [address] Jan, Elevated liver enzymes [facility] [place] [address] [place] [address] Jan, Elevated liver function [facility] CRISTELA Chacon tests 790.6 [address] Jan, Anxiety 300.00 ; History of [facility] [place] heroin abuse 305.53 ; COCAINE ABUSE-IN REMISS 305.63 ; History of hepatitis C V12.09 and Tobacco use disorder 305.[address] Dec, [facility] [place] [address] Dec, [facility] [place] [address] Nov, Skin disorder 709.9 ; [facility] [place] [place] History of heroin abuse 305.53 ; Low back pain 724.2 ; COCAINE ABUSE-IN REMISS 305.63 and Vomiting 787.[address] Nov, Anxiety 300.00 [facility] [place] [address] Oct, [facility] [place] [address] [facility] [address] [place], [place] [address] Oct, Degenerative disc disease , [facility] [place] lumbar 722.52 ; History of heroin abuse 305.53 ; COCAINE ABUSE-IN REMISS 305.63 ; Back pain 724.5 and Anxiety 300.[address] September, [facility] [place] [address] Jul, [facility] [place] [address] Jun, [facility] [place] [address] May, [facility] [place] [address] [facility] [address] [facility] May, [facility] [place] [address] [facility] [address] [facility] Apr, [place] [address] Mar, [facility] [place] [address] Mar, Routine general medical [place] examination at a [address] care facility V70.0 ; Low back pain 724.2 ; Anxiety disorder 300.00 ; History of hepatitis C V12.09 ; Need for influenza vaccination V04.81 and VACCIN FOR DISEASE NEC V05.[address] [place], [place] [address] [place], [place] [address] May, Low back pain 724.2 [place] [address] IMMUNIZATIONS No Known Immunizations SOCIAL HISTORY Never Assessed REASON FOR REFERRAL FUNCTIONAL STATUS PLAN OF CARE VITAL SIGNS MEDICATIONS Unknown Medications PROCEDURES No Known procedures RESULTS No Results REASON FOR VISIT Lab results Insurance Providers Health Health Health Health Health Member Patient Patient Patient Patient Patient Subscriber Subscriber Subscriber Group Insurance Plan Plan Plan Plan ID Relationship Address Phone Name Date of ID Name Date of No Type Insurance Insurance Insurance Coverage to Subscriber Address Phone Name Dates Case [phone] Case self Ivan [id number] Management [place] [facility] [address] [facility] Blue [address] Blue self Ivan [id number] Choice Opt [address]255 [address] 83 Choice Opt Colf [id number] [place] Claims [id number] [place] [facility] [place] [facility] [place] [facility] [address] Blue [phone] Blue self Ivan [id number] Choice Opt [id number] Choice Opt Colf 6 [place] [address] [facility] [employer] [phone] [employer] [employer] self Ivan [id number] M Family [place] 02 [place] [address] Planning Full Fee Full Fee Medicaid [phone] Medicaid self Ivan [id number] [facility] 00 [address] [address] Medicaid [phone] Medicaid self Ivan [id number] Wrap [facility] 56 Wrap [place] [address] MEDICAL (GENERAL) HISTORY Type Description Date Medical History Depression /anxiety Medical History Heroin and cocaine addcition (remission .19/05)-05/08/13was when he last used IVDU- has used [...] incarcerated - 3 times- has been in [facility] -97 days is on parole Medical History is in [facility] - 04/05 Medical History 12/04/14ED visit for skin lesion Medical History 11/28/14 ED visit overdose synthetic THC Medical History 01/22/15 smoking THC Medical History February again -for 2weeks , [place] - hematuria while there Medical History 04/14/15 ED visit red spots on legs - atarax - dermatology referral Medical History released from jail 1/05/17 Medical History 06/29/16 dermatology consult guttate psoriasis, [...]
--- OUTSIDE RECORDS SUMMARY | 2019-04-02 11:00 | XMS REPORT ---
:1980 Author Organization [facility] Medical Address [address] [place] [address] Care Team Providers Name Role Phone Diana Grimes Unavailable Unavailable PROBLEMS Type Condition ICD9-CM UYS06-KS Onset Condition SNOMED Code Code Code Dates Status Problem Low back pain M54.5 Active 685574476 Problem History of hepatitis Z86.19 Active 847649894 C Problem Acute hepatitis C B17.10 Active 548720068 Problem Cocaine abuse in F14.10 Active 282608699 remission Problem Cryoglobulinemia D89.1 Active 465102628781657 Problem BPH (benign N40.0 Active 036924261 prostatic hypertrophy) with urinary retention Problem Tinnitus, bilateral H93.13 Active 7777344412663 Problem Chronic viral B18.2 Active 452263578 hepatitis C Problem Erectile N52.9 Active 892420943 dysfunction, unspecified erectile dysfunction type Problem Hep C w/o coma, B18.2 Active 291352150 chronic Problem Chronic pain after G89.29 Active 522758910 traumatic injury Problem 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 75290370 personality disorder Problem Sleep disorder G47.9 Active 90020228 Problem History of heroin Z87.898 Active 059922093968014 abuse Problem Mood disorder F39 Active 07180817 Problem Anxiety F41.9 Active 23152558 Problem Cannabis dependence, F12.20 Active 04561940 abuse Problem Nicotine dependence, F17.210 Active 88291305 cigarettes, uncomplicated Problem Pain, chronic due to G89.21 Active 669928619 trauma Problem Tinnitus of both H93.13 Active 3342384378575 ears Problem Environmental Z91.09 Active 082882194 allergies Problem Reactive depression F32.9 Active 58247166 (situational) ALLERGIES No Information ENCOUNTERS Encounter Location Date Diagnosis [place] [address] Nov, 2019 [facility] [place] [address] Feb, [facility] [place] [address] Feb, [facility] [place] [address] Feb, Anxiety F41.9 and [place] Antisocial personality [address] disorder F60[address] Feb, Dehiscence of operative [facility] [place] wound, initial encounter [address] T81.31XA and Discharge from wound T14.8XXA [address] Feb, [facility] [place] [address] Feb, [place] [address] Feb, Anxiety F41.9 and [place] Antisocial personality [address] disorder F60.[address] Feb, [place] [address] right tibia Z87.81 and Right foot pain M79.[address] [place] [address] Feb, 2019 [place] [address] Feb, [facility] [place] [address] Feb, [place] [address] Feb, Anxiety F41.9 ; History of [place] heroin abuse Z87.898 ; [address] Cannabis dependence, abuse F12.20 and Cocaine abuse in remission F14.[address] Feb, Mood disorder F39 and [place] Antisocial personality [address] disorder F60.[address] Jan, Anxiety F41.9 and [place] Antisocial personality [address] disorder F60.[address] Jan, Anxiety F41.9 [place] [address] Jan, [place] [address] Jan, Anxiety F41.9 Health [facility] Alfonso Goetz [place] [address] [facility] [address] [facility] Dec, [place] [address] Dec, Anxiety F41.9 ; Mood [facility] [place] CRISTELA disorder F39 and Antisocial [address] personality disorder F60.[address] Dec, Anxiety F41.9 [place] [address] Dec, [facility] [place] [address] Dec, [facility] [place] [address] [place] Dec, Mood disorder F39 and [facility] [place] Antisocial personality [address] disorder F60.2 [place] [id number] [facility] Nov, [place] [address] (situational) F32.[address] Nov, Right wrist pain M25.531 [facility] and Environmental allergies [address] Z91.09 [facility] [address] [facility] Nov, Health [facility] [place] Go[place] [address] September, [facility] [place] [address] September, [facility] [place] [address] Jul, Herpes zoster without [facility] [place] complication B02.9 [address] [facility] [address] [facility] Jul, [place] [address] [facility]ly [facility] [address] [facility] Jul, Tinnitus of both ears [place] H93.13 [address] [place] [place] May, [facility] [place] [address] [address] [place] May, Encounter for general adult Health [facility] [place]/o [address] abnormal findings Z00.00 [facility] [address] [facility] Apr, [place] [address] [facility] [address] [place] [address] Feb, Chronic pain after [place] traumatic injury G89.29 [address] [facility] [address] [facility] Feb, [place] [address] Jan, [place] [address] Alfon[place] Go[place] [address] [place] [place] Jan, History of hepatitis C [facility] CRISTELA Chacon Z86.19 [address] [place] [address] [place] Jan, [facility] [place] [address] [place] [address] [place] Dec, Bilateral edema of lower [facility] [place] extremity R60.0 [address] [place] [address] [place] Nov, Skin lesion of right arm [facility] [place] L98.9 [address] [place] [address] [place] Nov, [facility] [place] [address] Al[place] Go[place] [address] [place] Nov, [facility] [place] [address] Nov, [place] [address] [facility] [address] [place] [address] Oct, [place] [address] [facility] [address] [place] [address] Oct, [place] [address] Alfon[place] Go[place] [address] [place] Oct, [facility] [place] [address] [place] [address] [place] Oct, [facility] [place] [address] Oct, [place] [address] [place] [address] [place] Oct, [facility] [place] [address] [facility] [address] [place] [address] Oct, [place] [address] [place] [address] [place] Oct, Lower abdominal pain R10.30 [facility] [place] ; Strain of lumbar [address] paraspinous muscle, initial encounter S39.012A and History of hepatitis C Z86.[address] Oct, History of hepatitis C [facility] [place] Z86.19 [address] Oct, Right lower quadrant [facility] CRISTELA Chacon abdominal pain R10.31 ; [address] Anxiety F41.9 and Bone spur M77.[address] Oct, [place] [address] September, [facility] [place] [address] September, [place] [address] [address] September, [facility] [place] [address] September, Abrasion of left cornea, [facility] [place]acon initial encounter S05.02XA [address] September, [facility] [place] [address] Case Management [address] [place], [place] [address] Aug, [facility] [place] [address] Aug, Acute hepatitis C B17.10 [facility] [place] [address] [place] Aug, Acute hepatitis C B17.10 [facility] [place]acon and Dizziness R42 [address] Aug, [facility] [place] [address] [address] Aug, [facility] [place] [address] [address] [place] Aug, Anxiety F41.9 and Sleep [facility] [place] disorder G47.9 [address] Aug, [facility] [place] [address] [address] Jul, [place] [address] [address] [place] Jul, [facility] [place] [address] [place] [address] [place] Jul, Acute hepatitis C B17.10 [facility] [place] [address] Al[place]so Go[place] [address] [place] Jul, [facility] [place] [address] Case Management [address] [place], [place] [address] Case Management [address] [place], [place] [address] Alfonso Goetz [address] [place] Jul, [facility] [place] [address] Case Management [address] [place], [place] [address] Alfosno Goetz [place] [address] [address] [place] Jul, Anxiety F41.9 ; Sleep [facility] [place] disorder G47.9 and Acute [address] hepatitis C B17.10 [address] [address] [place] Jul, [facility] Alfonso Goetz [place] [address] Jun, [place] [address] Alfonso Go[place] [address] [address] [place] Jun, Anxiety F41.9 [facility] [place] [address] Alfonso Go[place] [address] [address] [place] Jun, [facility] [place] [address] Case Management [address] [place], [place] [address] Al[place] [address] [address] [place] May, Encounter for general adult [facility] Alfonso Goetz [place] medical examination w/o [address] abnormal findings Z00.00 Case Management [address] [place], [place] [address] Case Management [address] [place], [place] [address] Alfonso Go[place] [address] [address] [place] May, [facility] [place] [address] Alfonso Go[place] [address] [address] [place] May, Hep C w/o coma, chronic [facility] Alfon[place] Goetz [place] B18.2 [address] Al[place] Go[place] [address] [address] [place] May, Hep C w/o coma, chronic [facility] [place] B18.2 [address] [place] [address] [address] [place] May, [facility] [place] [address] [place] May, [facility] [place] [place] [address] May, [facility] [place] [address] Apr, [facility] [place] [address] [facility] [address] [place] Apr, [facility] [place] [address] Apr, Elevated BP without [place] diagnosis of hypertension [address] R03.0 Facilitated Enrollment [address] [place] Apr, - [place], [place] [address] [place] [address] Apr, Chronic viral hepatitis C [facility] [place] B18.2 ; Cryoglobulinemia D89.1 ; Nicotine dependence, cigarettes, uncomplicated F17.210 and Cocaine abuse in remission F14.10 Case Management [address] [place], Oct, [address] September, [facility] [place] [address] September, [facility] [place] [address] September, [facility] [place] [address] September, [facility] [place] [address] September, [facility] [place] [address] Case Management [address] [place], September, [address] [place] September, History of heroin abuse [place] Z87.898 and Cannabis [address] dependence, abuse F12.20 [address] [place] September, [facility] [place] [address] [address] [place] September, Excessive sweating R61 ; [facility] [place] Erectile dysfunction, [address] unspecified erectile dysfunction type N52.9 ; Ejaculatory disorder N53.19 ; Sleep disorder G47.9 and Anxiety F41.9 Case Management [address] [place], [place] [address] Aug, [facility] [place] [address] Aug, [facility] [place] [address] Case Management [address] Alfonso [place], Aug, [address] Aug, Routine general medical [facility] [place] examination [place] a [place] [address] care facility Z00.00 ; History of hepatitis C Z86.19 ; Nicotine dependence, cigarettes, uncomplicated F17.210 ; History of heroin abuse Z87.898 ; Cannabis dependence, abuse F12.20 ; Screening examination for sexually transmitted disease Z11.3 ; Special screening examination for other specified viral diseases Z11.59 ; Allergic rhinitis J30.9 ; Depression F32.9 and Skin disorder L98.9 [place] [address] [address] [facility] Aug, [place] [address] Aug, Dizziness R42 ; BPH ( benign [facility] [place] prostatic hypertrophy) with [address] urinary retention N40.0 and Tinnitus, bilateral H93.[address] Aug, [facility] [place] [address] Aug, [facility] [place] [address] Aug, [facility] [place] [address] Aug, [facility] [place] [address] Aug, [facility] [place] [address] Aug, History of hepatitis C [facility] [place] Z86.19 ; Localized edema [address] R60.0 ; Chronic viral hepatitis C B18.2 and Cryoglobulinemia D89.1 Case Management [address] [place], [place] [address] Aug, History of hepatitis C [place] Z86.19 [address] Aug, [place] [address] Jul, Low back pain M54.5 ; [place] edema R60.0 and Dysuria R30.[address] Jul, BPH (benign prostatic [place] hypertrophy) with urinary retention N40.[address] Jul, Low back pain M54.5 ; [place] edema R60.0 ; BPH (benign prostatic hypertrophy) with urinary retention N40.0 ; Acute hepatitis C B17.10 and Elevated liver enzymes R74.[address] Jun, Hepatitis C virus [place] infection, unspecified chronicity B19.[address] May, [address] May, Routine general medical [place] examination [place] [address] care facility Z00.00 ; History of hepatitis C Z86.19 ; Nicotine dependence, cigarettes, uncomplicated F17.210 ; History of heroin abuse Z87.898 ; Cannabis dependence, abuse F12.20 ; Screening examination for sexually transmitted disease Z11.3 ; Special screening examination for other specified viral diseases Z11.59 ; Allergic rhinitis J30.9 ; Depression F32.9 and Skin disorder L98.9 Facilitated Enrollment UNKNOWN May, - [address] Apr, Anxiety 300.[address] [place] [address] Mar, Stress headaches F45.[address] Mar, Dysuria R30.[address] Mar, [address] Mar, [address] Feb, [address] Feb, [facility] [place] [address] [place] Feb, Right ankle injury S99.911A [facility] [place] [address] [place] Feb, [facility] [place] [address] Jan, Injury of right knee, leg [facility] [place] ankle and foot 959.7 and Dysuria 788.[address] Jan, [facility] Alfonso Goetz [place] [address] Jan, Right ankle pain 719.47 [facility] [place] [address] Jan, [facility] Alfonso Go[place] [address] Jan, Right ankle pain 719.47 and [facility] [place] Cannabis abuse 305.20 [address] [place] Jan, [facility] Alfonso Goetz [place] [address] Jan, Elevated liver enzymes [facility] [place] [address] [place] [address] Jan, Elevated liver function [facility] CRISTELA Chacon tests 790.6 [address] Jan, Anxiety 300.00 ; History of [facility] [place] heroin abuse 305.53 ; COCAINE ABUSE-IN REMISS 305.63 ; History of hepatitis C V12.09 and Tobacco use disorder 305.[address] Dec, [facility] [place] [address] Dec, [facility] [place] [address] Nov, Skin disorder 709.9 ; [facility] [place] History of heroin abuse 305.53 ; Low back pain 724.2 ; COCAINE ABUSE-IN REMISS 305.63 and Vomiting 787.[address] [place] Nov, Anxiety 300.00 [facility] [place] [address] Oct, [facility] [place] [address] [facility] [address] [place], [place] [address] [place] Oct, Degenerative disc disease , [facility] [place] lumbar 722.52 ; History of heroin abuse 305.53 ; COCAINE ABUSE-IN REMISS 305.63 ; Back pain 724.5 and Anxiety 300.[address] September, [facility] [place] [address] Jul, [facility] [place] [address] Jun, [facility] [place] [address] May, [facility] [place] [address] [facility] [address] [facility] May, [facility] [address] [facility] [address] [facility] Apr, [place] [address] Mar, [facility] [place] [address] Mar, Routine general medical [place] examination at a [address] care facility V70.0 ; Low back pain 724.2 ; Anxiety disorder 300.00 ; History of hepatitis C V12.09 ; Need for influenza vaccination V04.81 and VACCIN FOR DISEASE NEC V05.[address] May, [place] [address] May, [place] [address] May, Low back pain 724.2 [place] [address] IMMUNIZATIONS No Known Immunizations SOCIAL HISTORY Never Assessed REASON FOR REFERRAL FUNCTIONAL STATUS PLAN OF CARE VITAL SIGNS MEDICATIONS Unknown Medications PROCEDURES No Known procedures RESULTS No Results REASON FOR VISIT Acute Triage Insurance Providers Health Health Health Health Health Member Patient Patient Patient Patient Patient Subscriber Subscriber Subscriber Group Insurance Plan Plan Plan Plan ID Relationship Address Phone Name Date of ID Name Date of No Type Insurance Insurance Insurance Coverage to Subscriber Address Phone Name Dates Blue [phone] Blue self Ivan [id number] Choice Opt [id number] Attn 83 Choice Opt Col[place] [id number] Kay Claims [id number] Kay [facility] [place] [facility] [place] [facility] [address] Blue [phone] Blue self Ivan [id number] Choice Opt [id number] Choice Opt [place] 6 [place] [address] Case [phone] Case self Ivan [id number] Management [place] 02 Management Colf [facility] [address] Community Medicaid [id number] Medicaid self Ivan [id number] [facility] 00 [place] [address] [facility] [phone] [facility] [employer] self Ivan [id number] M Family [place] 02 [place] [address] Planning Full Fee Full Fee Medicaid [id number] [phone] Medicaid self Ivan [id number] Wrap [facility] 56 Wrap [place] [id number] MEDICAL (GENERAL) HISTORY Type Description Date Medical [...] incarcerated - 3 times- has been in [facility] -97 days is on parole Medical History is in [facility] - 04/05 Medical History 12/04/14ED visit for skin lesion Medical History 11/28/14 ED visit overdose synthetic THC Medical History 01/22/15 smoking THC Medical History February again -for 2weeks , Rescue - hematuria while there Medical History 04/14/15 ED visit red spots on legs - atarax - dermatology referral Medical History released from correction 1/05/17 Medical History 06/29/16 dermatology consult guttate [...]
--- OUTSIDE RECORDS SUMMARY | 2019-04-02 11:00 | XMS REPORT ---
:1980 Author Organization [facility] Address [address] [place] [address] Care Team Providers Name Role Phone Diana Grimes Unavailable Unavailable PROBLEMS Type Condition ICD9-CM [id number] Onset Condition SNOMED Code Code Code Dates Status Problem Low back pain M54.5 Active 945811877 Problem History of hepatitis Z86.19 Active 543921470 C Problem Acute hepatitis C B17.10 Active 792241349 Problem Cocaine abuse in F14.10 Active 064917010 remission Problem Cryoglobulinemia D89.1 Active 877248806313648 Problem BPH (benign N40.0 Active 354101295 prostatic hypertrophy) with urinary retention Problem Tinnitus, bilateral H93.13 Active 7353008055674 Problem Chronic viral B18.2 Active 859967433 hepatitis C Problem Erectile N52.9 Active 784135482 dysfunction, unspecified erectile dysfunction type Problem Hep C w/o coma, B18.2 Active 985778996 chronic Problem Chronic pain after G89.29 Active 953793829 traumatic injury Problem 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 58000552 personality disorder Problem Sleep disorder G47.9 Active 03050902 Problem History of heroin Z87.898 Active 575772889914787 abuse Problem Mood disorder F39 Active 32044719 Problem Anxiety F41.9 Active 87716049 Problem Cannabis dependence, F12.20 Active 69500676 abuse Problem Nicotine dependence, F17.210 Active 42072053 cigarettes, uncomplicated Problem Pain, chronic due to G89.21 Active 092843572 trauma Problem Tinnitus of both H93.13 Active 8233929200059 ears Problem Environmental Z91.09 Active 161580852 allergies Problem Reactive depression F32.9 Active 18561070 (situational) ALLERGIES No Information ENCOUNTERS Encounter Location Date Diagnosis [address] Feb, [facility] [place] [address] Feb, [facility] [place] [address] Feb, [facility] [place] Goetz [place] [address] [place] Feb, [facility] [address] Feb, Anxiety F41.9 and [place] Antisocial personality [address] disorder F60.[address] Feb, [place] [address] right tibia Z87.81 and Right foot pain M79.[address] [place] Feb, [facility] [place] [address] Feb, [facility] [place] [address] Feb, [facility] [place] [address] Feb, Anxiety F41.9 ; History of [facility] [place] heroin abuse Z87.898 ; [address] Cannabis dependence, abuse F12.20 and Cocaine abuse in remission F14.[address] Feb, Mood disorder F39 and [facility] [place] Antisocial personality [address] disorder F60.[address] Jan, Anxiety F41.9 and [facility] [place] Antisocial personality [address] disorder F60.[address] Jan, Anxiety F41.9 [facility] [place] [address] Jan, [facility] [place] [address] Jan, Anxiety F41.9 [facility] [place] [address] [facility] [address] [place] [address] Dec, [place] [address] Dec, Anxiety F41.9 ; Mood [facility] [place] disorder F39 and Antisocial [address] personality disorder F60.[address] [place] Dec, Anxiety F41.9 [facility] [place] [address] [place] Dec, [facility] [place] [address] Alfonso oGetz [address] Dec, [facility] [place] [address] [place] Dec, Mood disorder F39 and [facility] [place] Antisocial personality [address] disorder F60.2 [facility] [address] [facility] Nov, [place] [address] (situational) F32.[address] Nov, Right wrist pain M25.531 [facility] [place] and Environmental allergies [address] Z91.09 [facility] [address] [facility] Nov, [facility] [place] [address] [place] September, [facility] [place] [address] September, [facility] [place] [address] [place] Jul, Herpes zoster without [facility] [place] Go[place] complication B02.9 [address] Jul, [place] [address] Jul, Tinnitus of both ears [place] H93.13 [address] [place] May, [facility] [place] [address] May, Encounter for general adult [facility] [place] medical [place] w/[place] [address] abnormal findings Z00.00 [facility] [address] [facility] Apr, [place] [address] [facility] [address] [place] [address] Feb, Chronic pain after [place], [place] traumatic injury G89.29 [address] [facility] [address] [facility] Feb, [place] [address] Jan, [place] [address] Alfonso Goetz [address] Jan, History of hepatitis C [facility] CRISTELA Tomas Z86.19 [address] [place] Goetz [address] Jan, [facility] [place] [address] [place] Go[place] [address] Dec, Bilateral edema of lower [facility] [place] Tomas extremity R60.0 [address] [place] Go[place] [address] Nov, Skin lesion of right arm [facility] C[place]STEL[place] Tomas L98.9 [address] [place]fon[place] Goetz [address] [place] Nov, [facility] [place]omas [address] [place] Goetz [address] [place] Nov, [facility] [place] Tomas [address] [facility] Nov, [place] [address] Oct, [place] [address] Oct, [place] [address] Alfonso Goetz [address] Oct, [facility] [place] Tomas [address] Alfonso Goetz [address] Oct, [facility] [place] [address] [address] [facility] Oct, [place] [address] Alfonso Goetz [address] Oct, [facility] [place] [address] Oct, [place] [address] Alfonso Goetz [address] Oct, Lower abdominal pain R10.30 [facility] [place] Go[place] ; Strain of lumbar [address] paraspinous muscle, initial encounter S39.012A and History of hepatitis C Z86.19 [place] Go[place] [address] Oct, History of hepatitis C [facility] C[place]ST[place] Tomas Z86.19 [address] Alfonso Goetz [address] [place] Oct, Right lower quadrant [facility] [place], CRISTELA abdominal pain R10.31 ; [address] Anxiety F41.9 and Bone spur M77.9 [facility] [address] [place] [address] Oct, [place] [address] Alfonso Go[place] [address] [address] [place] September, [facility] [place] [address] September, [place] [address] Alfonso Goetz [address] [place] September, [facility] Bhavesh [place] [address] Alfonso Goetz [address] [place] September, Abrasion of left cornea, [facility] [place]ST[place] Chacon initial encounter S05.02XA [address] Alfonso Goetz [address] [place] September, [facility] [place] [address] Case Management [address] [place], [place] [address] [place] [address] [place] Aug, [facility] [place] [address] Alfonso Goetz [address] [place] Aug, Acute hepatitis C B17.10 [facility] Bhavesh [place] [address] Alfon[place] Goetz [address] [place] Aug, Acute hepatitis C B17.10 [facility] [place]acon and Dizziness R42 [address] Alfonso Goetz [address] [place] Aug, [facility] [place] [address] Al[place] Goetz [address] [place] Aug, [facility] [place] [address] Alfonso Goetz [address] [place] Aug, Anxiety F41.9 and Sleep [facility] [place] [place] disorder G47.9 [address] Al[place] Goetz [address] [place] Aug, [facility] Bhavesh [place] [address] [place] [address] [facility] Jul, [place] [address] Alfonso Goetz [address] [place] Jul, [facility] [place] [address] Alfonso Go[place] [address] m0um0u [place] Jul, Acute hepatitis C B17.10 [facility] [place] [address] [place] [address] [place] Jul, [facility] [place] [address] Case Management [address] Alfon[place] Go[place], [place] [address] Case Management [address] [place], [place] [address] [place] [address] [place] Jul, [facility] [place] [address] Case Management [address] [place], [place] [address] [place] [address] [place] Jul, Anxiety F41.9 ; Sleep [facility] [place] C[place]EL[place] disorder G47.9 and Acute [address] hepatitis C B17.10 [place]fon[place] Goetz [address] [place] Jul, [facility] [place] [address] [facility] [address] [facility] Jun, [place] [address] [place] [address] [place] Jun, Anxiety F41.9 [facility] [place] [address] [place] [address] [place] Jun, [facility] [place] [address] Case Management [address] [place]fon[place], [place] [address] [place] [address] [place] May, Encounter for general adult [facility] [place] w/o [address] abnormal findings Z00.00 Case Management [address] [place]fon[place], [place] [address] Case Management [address] [place], [place] [address] Alfon[place] Goetz [address] [place] May, [facility] [place] [address] [place] [address] [place] May, Hep C w/o coma, chronic [facility] [place] B18.2 [address] Alfonso Goetz [address] [place] May, Hep C w/o coma, chronic [facility] [place] B18.2 [address] [place] [address] [place] May, [facility] [place] [address] [place] [address] [place] May, [facility] [place] [address] [place] [address] [place] May, [facility] [place] [address] [place] [address] [place] Apr, [facility] [place] [address] [place] [facility] [address] [place] 18 Apr, 2017 [facility] [place] [address] [place] [address] m0um0u [place] Apr, Elevated BP without Health Medical [place]STEL[place] Chacon diagnosis of hypertension [address] R03.0 Facilitated Enrollment [address] [place] Apr, - [place] [address] m0um0u [place] Apr, Chronic viral hepatitis C [facility] [place] B18.2 ; Cryoglobulinemia D89.1 ; Nicotine dependence, cigarettes, uncomplicated F17.210 and Cocaine abuse in remission F14.10 Case Management [address] [place] [address], Oct, [address] [place] September, [facility] [address] [place] [address] m0um0u [place] September, [facility] [address] [place] [address] m0um0u [place] September, [facility] [place] [address] [place] September, [facility] [place] [place] September, [facility] [place] [address] Case Management [address] [place] [address], September, [place] [address] m0um0u [place] September, History of heroin abuse [facility] [place] Z87.898 and Cannabis dependence, abuse F12.20 [place] [address] m0um0u [place] September, [facility] [address] [place], [place] [address]ball [place] September, Excessive sweating R61 ; [facility] [place] Erectile dysfunction, unspecified erectile dysfunction type N52.9 ; Ejaculatory disorder N53.19 ; Sleep disorder G47.9 and Anxiety F41.9 Case Management [address] [place], September, [address] [place] [address] m0um0u [place] Aug, [facility] [address] [place], [place] [address]ball [place] Aug, [facility] [place] [address] Case Management [address] [place], Aug, [place] [address] m0um0u [place] Aug, Routine general medical [facility] [place] examination [place] [address] care facility Z00.00 ; History of hepatitis C Z86.19 ; Nicotine dependence, cigarettes, uncomplicated F17.210 ; History of heroin abuse Z87.898 ; Cannabis dependence, abuse F12.20 ; Screening examination for sexually transmitted disease Z11.3 ; Special screening examination for other specified viral diseases Z11.59 ; Allergic rhinitis J30.9 ; Depression F32.9 and Skin disorder L98.9 [facility] [address] [facility] Aug, [place] [address] [address] [place] Aug, Dizziness R42 ; BPH ( benign [facility] [place] prostatic hypertrophy) [place] [address] urinary retention N40.0 and Tinnitus, bilateral H93.13 [place] [address] m0um0u [place] Aug, [facility] [place] [address] [place], [place] [address] Aug, [place] [address] [place], [place] [address] [place], [place] [address] [address] [place] Aug, History of hepatitis C [place] Z86.19 ; Localized edema [address] R60.0 ; Chronic viral hepatitis C B18.2 and Cryoglobulinemia D89.1 Case Management [address] [place], [place] [address] Aug, History of hepatitis C [place] Z86.19 [address] Aug, [place] [address] [place] [address] m0um0u [place] Jul, Low back pain M54.5 ; [place] edema R60.0 and Dysuria [address] [address] Jul, BPH (benign prostatic [place] hypertrophy) with urinary [address] retention N40.0 [address] [place] Jul, Low back pain M54.5 ; Pedal [facility] [place] edema R60.0 ; BPH (benign prostatic hypertrophy) with urinary retention N40.0 ; Acute hepatitis C B17.10 and Elevated liver enzymes R74.[address] Jun, Hepatitis C virus [place], [place] infection, unspecified [address] chronicity B19.[address] May, [address] May, Routine general medical [place] examination at a [address] Z00.00 ; History of hepatitis C Z86.19 ; Nicotine dependence, cigarettes, uncomplicated F17.210 ; History of heroin abuse Z87.898 ; Cannabis dependence, abuse F12.20 ; Screening examination for sexually transmitted disease Z11.3 ; Special screening examination for other specified viral diseases Z11.59 ; Allergic rhinitis J30.9 ; Depression F32.9 and Skin disorder L98.9 Facilitated Enrollment UNKNOWN May, - [place] [facility] [address] Apr, Anxiety 300.[address] Mar, Stress headaches F45.[address] Mar, Dysuria R30.[address] Mar, [address] Mar, [address] Feb, [address] Feb, [address] Feb, Right ankle injury S99.911A [address] Feb, [address] Jan, Injury of right knee, leg [place] ankle and foot 959.7 and Dysuria 788.[address] Jan, [facility] [place] [address] Jan, Right ankle pain 719.47 [facility] [place] [address] Jan, [facility] [place] [address] Jan, Right ankle pain 719.47 and [facility] [place] Cannabis abuse 305.[address] Jan, [facility] [place] [address] Jan, Elevated liver enzymes [facility] [place] 790.5 [address] Jan, Elevated liver function [facility] [place] tests 790.[address] Jan, Anxiety 300.00 ; History of [place] heroin abuse 305.53 ; COCAINE ABUSE-IN REMISS 305.63 ; History of hepatitis C V12.09 and Tobacco use disorder 305.[address] Dec, [facility] [place] [address] Dec, [facility] [place] [address] Nov, Skin disorder 709.9 ; [place] History of heroin abuse 305.53 ; Low back pain 724.2 ; COCAINE ABUSE-IN REMISS 305.63 and Vomiting 787.[address] Nov, Anxiety 300.00 [facility] [place] [address] Oct, [facility] [place] [facility] [address] [place], [place] [address] Oct, Degenerative disc disease , [facility] [place] lumbar 722.52 ; History of heroin abuse 305.53 ; COCAINE ABUSE-IN REMISS 305.63 ; Back pain 724.5 and Anxiety 300.[address] [place] September, [facility] [place] [address] [place] Jul, [facility] [place] [address] [place] Jun, [facility] [place] [address] [place] May, [facility] [place] [address] [facility] [place] May, [facility] [place] [address] [facility] [address] [facility] Apr, [facility] [place] [address] [place] Mar, [facility] [place] [address] [place] Mar, Routine general medical [place] examination at a [address] V70.0 ; Low back pain 724.2 ; Anxiety disorder 300.00 ; History of hepatitis C V12.09 ; Need for influenza vaccination V04.81 and VACCIN FOR DISEASE NEC V05.[address] May, [place] [address] May, [place] [address] May, Low back pain 724.2 [place] [address] IMMUNIZATIONS No Known Immunizations SOCIAL HISTORY Never Assessed REASON FOR REFERRAL FUNCTIONAL STATUS PLAN OF CARE VITAL SIGNS MEDICATIONS Unknown Medications PROCEDURES No Known procedures RESULTS No Results REASON FOR VISIT call back Insurance Providers [facility] Member Patient Patient Patient Patient Patient Subscriber Subscriber Subscriber Group Insurance Plan Plan Plan Plan ID Relationship Address Phone Name Date of ID Name Date of No Type Insurance Insurance Insurance Coverage to Subscriber Address Phone Name Dates Medicaid [address] [phone] Medicaid self Ivan [id number] [facility] [address] [place] [address] Case [phone] Case self Ivan [id number] Management [place] 02 Management [facility] [address] Community Medicaid [address] [phone] Medicaid self Ivan [id number] Wrap [place] 56 [place] [address] Blue [phone] Blue self Ivan [id number] Choice Opt 9255 Attn 83 Choice Opt Colf GG457 [place] Claims [id number] [place] [facility] [place] [address] Blue [phone] Blue self Ivan [id number] Choice Opt [id number] Choice Opt Col[place] 6 [place] [address] [facility] Slide [phone] [facility] self Ivan [id number] M Family [place] 02 [place] [address] Planning Full Fee Full Fee MEDICAL (GENERAL) [...] incarcerated - 3 times- has been in [facility] -97 days is on parole Medical History is in [facility] - 04/05 Medical History 12/04/14ED visit for skin lesion Medical History 11/28/14 ED visit overdose synthetic THC Medical History 01/22/15 smoking THC Medical History February again -for 2weeks , [place] - hematuria while there Medical History 04/14/15 ED visit red spots on legs - atarax - dermatology referral Medical History [facility] from [facility]/27/16 Medical History 06/29/16 dermatology consult guttate [...]
--- OUTSIDE RECORDS SUMMARY | 2019-04-02 11:00 | XMS REPORT ---
:1980 Author Organization Formerly [facility] Address [address] [place] [address] Care Team Providers Name Role Phone LorenzoMal Unavailable Unavailable PROBLEMS Type Condition ICD9-CM CDK51-AD Onset Condition SNOMED Code Code Code Dates Status Problem Low back pain M54.5 Active 910386059 Problem History of hepatitis Z86.19 Active 647642598 C Problem Acute hepatitis C B17.10 Active 326005534 Problem Cocaine abuse in F14.10 Active 383860774 remission Problem Cryoglobulinemia D89.1 Active 615911181980568 Problem BPH (benign N40.0 Active 018484156 prostatic hypertrophy) with urinary retention Problem Tinnitus, bilateral H93.13 Active 1289946300498 Problem Chronic viral B18.2 Active 086818150 hepatitis C Problem Erectile N52.9 Active 179854256 dysfunction, unspecified erectile dysfunction type Problem Hep C w/o coma, B18.2 Active 540272449 chronic Problem Chronic pain after G89.29 Active 045357791 traumatic injury Problem 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 38126093 personality disorder Problem Sleep disorder G47.9 Active 69590021 Problem History of heroin Z87.898 Active 967180679456733 abuse Problem Mood disorder F39 Active 46221574 Problem Anxiety F41.9 Active 69028768 Problem Cannabis dependence, F12.20 Active 03293956 abuse Problem Nicotine dependence, F17.210 Active 09257984 cigarettes, uncomplicated Problem Pain, chronic due to G89.21 Active 879164140 trauma Problem Tinnitus of both H93.13 Active 7842005623146 ears Problem Environmental Z91.09 Active 936943890 allergies Problem Reactive depression F32.9 Active 43333931 (situational) ALLERGIES No Known Allergies ENCOUNTERS Encounter Location Date Diagnosis [address] Feb, [facility] [address] Feb, [place] [address] Feb, Dehiscence of operative [facility] [place] wound, initial encounter [address] T81.31XA and Discharge from wound T14.8XXA [address] Feb, [place] [address] [facility] 60 [facility] Feb, [place] [address] Feb, Anxiety F41.9 and [place] Antisocial personality [address] disorder F60.[address] 14 Feb, 2019 [place] [address] right tibia Z87.81 and Right foot pain M79.671 [facility] 60 [facility] 10 Feb, 2019 [place] [address] Feb, [place] [address] Feb, [facility] [place] [address] Feb, Anxiety F41.9 ; History of [place] heroin abuse Z87.898 ; [address] Cannabis dependence, abuse F12.20 and Cocaine abuse in remission F14.[address] Feb, Mood disorder F39 and [place] Antisocial personality [address] disorder F60.[address] Jan, Anxiety F41.9 and [place] Antisocial personality [address] disorder F60.[address] Jan, Anxiety F41.9 [facility] [address] Jan, [facility] [address] Jan, Anxiety F41.9 [facility] [address] [place] [address] [place] [address] Dec, [place] [address] Dec, Anxiety F41.9 ; Mood [facility] [place] disorder F39 and Antisocial [address] personality disorder F60.[address] Dec, Anxiety F41.9 [place] [address] Dec, [facility] [place] [address] Dec, [facility] [place] [address] Dec, Mood disorder F39 and [facility] [place] Antisocial personality [address] disorder F60.[address] Nov, [place] [address] (situational) F32.[address] Nov, Right wrist pain M25.531 [facility] [place] and Environmental allergies [address] Z91.09 [facility] 160 [facility] Nov, [place] [address] September, [facility] [place] [address] September, [facility] [place] [address] Jul, Herpes zoster without [facility] [place] complication B02.9 [address] [facility] [address] [facility] Jul, [place] [address] [facility] [address] [place] [address] Jul, Tinnitus of both ears [place] H93.13 [address] May, [facility] [place] [address] May, Encounter for general adult [facility] [place] [address] abnormal findings Z00.00 [place] [address] [facility] Apr, [place] [address] [facility] [address] [facility] Feb, Chronic pain after Street [place] traumatic injury G89.29 [address] [facility] [address] [facility] Feb, [place] [address] [place] [address] [facility] Jan, [place] [address] [place] [address] Jan, History of hepatitis C [facility] [place] Z86.19 [address] [place] [address] Jan, [facility] [place] [address] [place] [address] Dec, Bilateral edema of lower [facility] [place] extremity R60.0 [address] [place] [address] Nov, Skin lesion of right arm [facility] [place] L98.9 [address] [place] [address] Nov, [facility] [place] [address] [place] [address] Nov, [facility] [place] [address] [place] [address] [facility] Nov, [place] [address] [facility] [address] [facility] Oct, [place] [address] [facility] [address] [facility] Oct, [place] [address] [place] [address] Oct, [facility] [place] [address] [place] [address] Oct, [facility] [place] [address] Oct, [place] [address] [place] [address] Oct, [facility] [place] [address] [facility] [address] [facility] Oct, [place] [address] [place] [address] Oct, Lower abdominal pain R10.30 Health [facility] [place] ; Strain of lumbar [address] paraspinous muscle, initial encounter S39.012A and History of hepatitis C Z86.19 [place] [address] [place] Oct, History of hepatitis C [facility] [place] Z86.19 [address] [place] [address] Oct, Right lower quadrant [facility] [place] abdominal pain R10.31 ; [address] Anxiety F41.9 and Bone spur M77.[address] Oct, [place] [address] September, [facility] [place] [address] September, [place] [address] September, [facility] [place] [address] [address] [place] September, Abrasion of left cornea, [facility] [place] [place] initial encounter S05.02XA [address] September, [facility] [place] [address] Case Management [address] [place], [place] [address] [address] [place] Aug, [facility] [place] [address] Aug, Acute hepatitis C B17.10 [facility] [place] [address] Aug, Acute hepatitis C B17.10 [facility] [place] [place] and Dizziness R42 [address] Aug, [facility] [place] [address] Aug, [facility] [place] [address] Aug, Anxiety F41.9 and Sleep [facility] [place] [place] disorder G47.9 [address] [place] [place] Aug, [facility] [place] [address] Jul, [place] [address] Jul, [facility] [place] [address] [address] [place] Jul, Acute hepatitis C B17.10 [facility] [place] [address] [address] [place] Jul, [facility] [place] [address] Case Management [address] [place], [place] [address] Case Management [address] [place], [place] [address] [place] [address] [address] [place] Jul, [facility] [place] [address] Case Management [address] [place], [place] [address] [place] [address] [address] [place] Jul, Anxiety F41.9 ; Sleep [facility] [place] disorder G47.9 and Acute [address] hepatitis C B17.10 [place] [address] [address] [place] Jul, [facility] [place] [address] Jun, [place] [address] [place] [address] [address] [place] Jun, Anxiety F41.9 [facility] [place] [address] [place] [address] [address] [place] Jun, [facility] [place] [address] Case Management [address] [place], [place] [address] [place] [address] [address] [place] May, Encounter for general adult [facility] [place] [address] abnormal findings Z00.00 Case Management [address] [place], [place] [address] Case Management [address] [place], [place] [address] [place] [address] [address] [place] May, [facility] [place] [address] [place] [address] [address] [place] May, Hep C w/o coma, chronic [facility] [place] B18.2 [address] [place] [address] [address] [place] May, Hep C w/o coma, chronic [facility] [place] B18.2 [address] [place] [address] [address] [place] May, [facility] [place] [address] [place] [address] [address] [place] May, [facility] [place] [address] [place] [address] [address] [place] May, [facility] [place] [address] [place] [address] [address] [place] Apr, [facility] [place] [address] [facility] [address] [place] Apr, [facility] [place] [address] [address] [place] Apr, Elevated BP without [facility] [place] diagnosis of hypertension [address] R03.0 Facilitated Enrollment [address] [place] Apr, - [facility] [place] [place] Apr, Chronic viral hepatitis C [facility] [place] B18.2 ; Cryoglobulinemia D89.1 ; Nicotine dependence, cigarettes, uncomplicated F17.210 and Cocaine abuse in remission F14.10 Case Management [address] [place], Oct, [address] [place] September, [facility] [place] [address] [address] [place] September, [facility] [address] [address] [place] September, [facility] [address] [address] [place] September[place] [facility] [address] [address] [place] September, [facility] [address] Case Management [address] [place], September, [address] [place] September, History of heroin abuse [facility] [place] Z87.898 and Cannabis dependence, abuse F12.20 [address] [place] September, [facility] [place] [address] [address] [place] September, Excessive sweating R61 ; [facility] [place] Erectile dysfunction, [address] unspecified erectile dysfunction type N52.9 ; Ejaculatory disorder N53.19 ; Sleep disorder G47.9 and Anxiety F41.9 Case Management [address] [place], September, [address] [place] Aug, [facility] [place] [address] [address] [place] Aug, [facility] [address] Case Management [address] [place], [place] [address] Aug, Routine general medical [place] examination at [place] [address] care facility Z00.00 ; History of hepatitis C Z86.19 ; Nicotine dependence, cigarettes, uncomplicated F17.210 ; History of heroin abuse Z87.898 ; Cannabis dependence, abuse F12.20 ; Screening examination for sexually transmitted disease Z11.3 ; Special screening examination for other specified viral diseases Z11.59 ; Allergic rhinitis J30.9 ; Depression F32.9 and Skin disorder L98.9 [place] [address] [address] [facility] Aug, [place] [address] Aug, Dizziness R42 ; BPH ( benign [facility] [place] prostatic hypertrophy) with [address] urinary retention N40.0 and Tinnitus, bilateral H93.[address] Aug, [place] [address] Aug, [place] [address] Aug, [place] [address] Aug, [place] [address] Aug, [place] [address] Aug, History of hepatitis C [place] Z86.19 ; Localized edema [address] R60.0 ; Chronic viral hepatitis C B18.2 and Cryoglobulinemia D89.1 Case Management [address] [place], [place] [address] Aug, History of hepatitis C [place] Z86.19 [address] Aug, [place] [address] Jul, Low back pain M54.5 ; Pedal [place] edema R60.0 and Dysuria [address] [address] Jul, BPH (benign prostatic [place] hypertrophy) with urinary retention N40.[address] Jul, Low back pain M54.5 ; Pedal [facility] [place] edema R60.0 ; BPH (benign prostatic hypertrophy) with urinary retention N40.0 ; Acute hepatitis C B17.10 and Elevated liver enzymes R74.[address] Jun, Hepatitis C virus [place] infection, unspecified chronicity B19.[address] May, [facility] May, Routine general medical [place] examination at a [place] [address] care facility Z00.00 ; History of hepatitis C Z86.19 ; Nicotine dependence, cigarettes, uncomplicated F17.210 ; History of heroin abuse Z87.898 ; Cannabis dependence, abuse F12.20 ; Screening examination for sexually transmitted disease Z11.3 ; Special screening examination for other specified viral diseases Z11.59 ; Allergic rhinitis J30.9 ; Depression F32.9 and Skin disorder L98.9 Facilitated Enrollment UNKNOWN May, - [place] Apr, Anxiety 300.[address] [facility] [address] Mar, Stress headaches F45.[address] Mar, Dysuria R30.0 [facility] [address] Mar, [facility] [place] Mar, [facility] [place] Feb, [facility] Feb, [facility] Feb, Right ankle injury S99.911A [facility] Feb, [facility] [place] [address] Jan, Injury of right knee, leg [facility] [place] ankle and foot 959.7 and Dysuria 788.[address] Jan, [facility] [place] [address] Jan, Right ankle pain 719.47 [facility] [place] [address] Jan, [facility] [place] [address] Jan, Right ankle pain 719.47 and [facility] [place] Cannabis abuse 305.20 [address] Jan, [facility] [place] [address] Jan, Elevated liver enzymes [facility] [place] 790.5 [address] Jan, Elevated liver function [facility] [place] tests 790.6 [address] [place] [address] Jan, Anxiety 300.00 ; History of [facility] [place] heroin abuse 305.53 ; COCAINE ABUSE-IN REMISS 305.63 ; History of hepatitis C V12.09 and Tobacco use disorder 305.[address] Dec, [facility] [place] [address] Dec, [facility] [place] [address] Nov, Skin disorder 709.9 ; [facility] [place] History of heroin abuse 305.53 ; Low back pain 724.2 ; COCAINE ABUSE-IN REMISS 305.63 and Vomiting 787.[address] Nov, Anxiety 300.00 [facility] [place] [address] Oct, [facility] [address] [facility] [address] [place], [place] [address] Oct, Degenerative disc disease , [facility] [place] lumbar 722.52 ; [place] [address] heroin abuse 305.53 ; COCAINE ABUSE-IN REMISS 305.63 ; Back pain 724.5 and Anxiety 300.[address] September, [facility] [address] Jul, [facility] [address] Jun, [facility] [address] May, [facility] [address] [place] [address] [address] [facility] May, [facility] [place] [address] [facility] Apr, [facility] [place] [address] [place] [address] Mar, [facility] [address] Mar, Routine general medical [place] examination at a [address] facility V70.0 ; Low back pain 724.2 ; Anxiety disorder 300.00 ; History of hepatitis C V12.09 ; Need for influenza vaccination V04.81 and VACCIN FOR DISEASE NEC V05.[address] [place], [place] [address] [place], [place] [address] May, Low back pain 724.2 [place] [address] IMMUNIZATIONS No Known Immunizations SOCIAL HISTORY Never Assessed REASON FOR REFERRAL FUNCTIONAL STATUS PLAN OF CARE Activity Details Follow Up prn Reason:Right lower extremity wound Pending Test SED RATE BY MODIFIED WESTERGREN Pending Test C-REACTIVE PROTEIN Pending Test CULTURE, AEROBIC AND ANAEROBIC W/GRAM STAIN VITAL SIGNS Temperature 98.5 degrees Fahrenheit 2019-03-14 Heart Rate 16 2019-03-14 Weight 177.8 2019-03-14 Height 72.0 in 2019-03-14 BMI 24.11 kg/m2 2019-03-14 Oximetry 98 % 2019-03-14 Blood pressure systolic 110 mm Hg 2019-03-14 Blood pressure diastolic 72 mm Hg 2019-03-14 MEDICATIONS Medication Instructions Dosage Frequency Start End Duration Status Date Date JOSE Wrist Device daily Use on 24h Nov, day(s) Not-Takin Brace/Splint - right 2019 g wrist Nicoderm CQ 21 Transdermal Once 1 patch to 24h 14 days Active MG/24HR a day skin PROCEDURES Procedure Date Ordered Result Body Site BODY MASS INDEX DOCD Mar 14, 2019 SMOKING + 2ND HAND ASSESSED Mar 14, 2019 Oxygen saturation results documented and reviewed Mar 14, 2019 BLOOD PRESSURE, MEASURED Mar 14, 2019 RESULTS No Results REASON FOR VISIT ankle wound draining- possible infection, Patient had plate removed from right ankle on 02/05/2019, loida removed on 02/19/2019, patient now has open areas with drainage. Insurance Providers [facility] Health Member Patient Patient Patient Patient Patient Subscriber Subscriber Subscriber Group Insurance Plan Plan Plan Plan ID Relationship Address Phone Name Date of ID Name Date of No Type Insurance Insurance Insurance Coverage to Subscriber Address Phone Name Dates Blue [phone] Blue self Ivan [id number] Choice [place] [id number] Choice Opt Colf [address] [facility] Medical [address] Case [phone] Case self Ivan [id number] [facility] 02 Management Colf [address] Slide [phone] [facility] Slide self Ivan [id number] Family [place] 02 M Family Colf Planning [place] [address] Planning Full Fee Full Fee Blue [phone] Blue self Ivan [id number] Choice Opt 9255 Attn 83 Choice Opt Colf [id number] [place] Claims [id number] [place] [facility] [place] [facility] [place] [facility] [address] Medicaid [id number] [phone] Medicaid self Ivan [id number] Wrap [facility] 56 Wrap [place] [id number] Medicaid [id number] [phone] Medicaid self Ivan [id number] [facility] 00 [address] [id number] MEDICAL (GENERAL) HISTORY Type Description Date Medical [...] - 3 times- has been in [facility] -97 days is on parole Medical History is in [facility] - 04/05 Medical History 12/04/14ED visit for skin lesion Medical History 11/28/14 ED visit overdose synthetic THC Medical History 01/22/15 smoking THC Medical History February Detox again -for 2weeks , [place] - hematuria while there Medical History 04/14/15 ED visit red spots on legs - atarax - dermatology referral Medical History released from retirement 05/27/16 Medical History 06/29/16 dermatology consult guttate [...]
--- OUTSIDE RECORDS SUMMARY | 2019-04-02 11:00 | XMS REPORT ---
:1980 Author Organization [facility] Medical Address [address] [place] [address] Care Team Providers Name Role Phone Diana Grimes Unavailable Unavailable PROBLEMS Type Condition ICD9-CM IFN62-XX Onset Condition SNOMED Code Code Code Dates Status Problem Low back pain M54.5 Active 256853596 Problem History of hepatitis Z86.19 Active 518538940 C Problem Acute hepatitis C B17.10 Active 300286052 Problem Cocaine abuse in F14.10 Active 021347991 remission Problem Cryoglobulinemia D89.1 Active 187374765441491 Problem BPH (benign N40.0 Active 464306874 prostatic hypertrophy) with urinary retention Problem Tinnitus, bilateral H93.13 Active 8730533555700 Problem Chronic viral B18.2 Active 874821020 hepatitis C Problem Erectile N52.9 Active 267158052 dysfunction, unspecified erectile dysfunction type Problem Hep C w/o coma, B18.2 Active 699219881 chronic Problem Chronic pain after G89.29 Active 620419649 traumatic injury Problem 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 42978283 personality disorder Problem Sleep disorder G47.9 Active 04777761 Problem History of heroin Z87.898 Active 762195364997241 abuse Problem Mood disorder F39 Active 36215840 Problem Anxiety F41.9 Active 87570678 Problem Cannabis dependence, F12.20 Active 05616963 abuse Problem Nicotine dependence, F17.210 Active 19802261 cigarettes, uncomplicated Problem Pain, chronic due to G89.21 Active 370241287 trauma Problem Tinnitus of both H93.13 Active 1724879599528 ears Problem Environmental Z91.09 Active 836411659 allergies Problem Reactive depression F32.9 Active 75370337 (situational) ALLERGIES No Information ENCOUNTERS Encounter Location Date Diagnosis [address] Feb, [facility] [place] [address] [place] [address] [facility] Feb, Anxiety F41.9 [place] Antisocial personality [address] disorder F60.2 [facility] Feb, 2019 [place] [address] [facility] 10 Feb, 2019 [place] [address] Feb, [facility] [place] [address] [address] [place] Feb, [place] [address] [address] [place] Feb, Anxiety F41.9 ; History of [facility] [place] heroin abuse Z87.898 ; [address] Cannabis dependence, abuse F12.20 and Cocaine abuse in remission F14.10 [place] [address] [employer] [place] Feb, Mood disorder F39 and [place] Antisocial personality [address] disorder F60.2 [place] [address] [address] [place] Jan, Anxiety F41.9 [place] Antisocial personality [address] disorder F60.2 [place] [address] [employer] [place] Jan, Anxiety F41.9 [facility] [place] [address] Jan, [facility] [place] [address] [place] [address] [facility] Jan, Anxiety F41.9 [facility] [place] [address] [facility] [address] [facility] Dec, [place] [address] [place] [address] [employer] [place] Dec, Anxiety F41.9 ; Mood [place] disorder F39 and Antisocial [address] personality disorder F60.2 [place] [address] [employer] [place] Dec, Anxiety F41.9 [facility] [place] [address] [place] [address] [employer] [place] Dec, [facility] [place] [place] [address] [place] [address] [facility] Dec, [facility] [place] [address] [place] Dec, Mood disorder F39 and [facility] [place] Antisocial personality [address] disorder F60.2 [facility] [address] [facility] Nov, [place] [address] (situational) F32.[address] [place] [address] Nov, Right wrist pain M25.531 [facility] [place]STELA [place] and Environmental allergies [address] Z91.09 [facility] Nov, [facility] [place] [address] [place] [address] September, [facility] [place] [address] September, [facility] [place] [address] Jul, Herpes zoster without [facility] CRISTELA [place] complication B02.9 [address] Jul, [place] [address] Jul, Tinnitus of both ears [place] H93.13 [address] [place] May, [facility] [place] [address] May, Encounter for general adult [facility] [place] [address] abnormal findings Z00.00 [facility] [address] [facility] Apr, [place] [address] [facility] [address] [place] [address] Feb, Chronic pain after [place] traumatic injury G89.29 [address] [facility] [address] [facility] Feb, [place] [address] [place] [address] [facility] Jan, [place] [address] [place] Jan, History of hepatitis C [facility] CRISTELA [place] Z86.19 [address] [place] Jan, [facility] [place] [address] [place] Dec, Bilateral edema of lower [facility] CRISTELA [place] extremity R60.0 [address] [place] [address] Nov, Skin lesion of right arm [facility] CRISTELA [place] L98.9 [address] [place] [address] Nov, [facility] [place] [address] [place] [address] Nov, [facility] [place] [address] Nov, [place] [address] Oct, [place] [address] Oct, [place] [address] [place] Oct, [facility] [place] [address] [place] Oct, [facility] [place] [address] [facility] Oct, [place] [address] [place] [address] Oct, [facility] [place] [address] Oct, [place] [address] [place] Oct, Lower abdominal pain R10.30 [facility] C[place]ST[place] ; Strain of lumbar [address] paraspinous muscle, initial encounter S39.012A and History of hepatitis C Z86.[address] [place] Oct, History of hepatitis C [facility] CRISTELA [place] Z86.19 [address] [place] [address] Oct, Right lower quadrant [facility] CRISTELA [place] abdominal pain R10.31 ; [address] Anxiety F41.9 and Bone spur M77.[address] Oct, [place] [address] [place] [place] September, [facility] [place] [address] September, [place] [address] [place] [place] September, [facility] [place] [address] [address] September, Abrasion of left cornea, [facility] CRISTELA [place] initial encounter S05.02XA [address] [place] [place] September, [facility] [place] [address] [facility] [address] [place], [place] [address] Al[place] Go[place] [address] [place] Aug, [facility] [place] [address] [place] [address] [place] Aug, Acute hepatitis C B17.10 [facility] [place] [address] [place] [address] [place] Aug, Acute hepatitis C B17.10 [facility] [place] CRISTELA and Dizziness R42 [address] [place] [place] Aug, [facility] [place] [address] [place] [address] [place] Aug, [facility] Alfonso Go[place] [address] [place] [address] [place] Aug, Anxiety F41.9 and Sleep [facility] [place] CRISTELA disorder G47.9 [address] [place] [address] [place] Aug, [facility] Alfonso [place] [address] Jul, [place] [address] [place] [address] [place] Jul, [facility] Alfonso [place] [address] [place] [address] [place] Jul, Acute hepatitis C B17.10 [facility] [place] [address] Alfonso Go[place] [address] [place] Jul, [facility] Alfon[place] C[place] [address] [facility] [address] [place], [place] [address] [facility] [address] [place] [address] [place] [address] [employer] [place] Jul, [facility] [place] [address] [facility] [address] [place], [place] [address] Alfonso Go[place] [address] [place] Jul, Anxiety F41.9 ; Sleep [facility] [place] disorder G47.9 and Acute [address] hepatitis C B17.10 [place] [address] [facility] Jul, [facility] [place] [address] [place] [address] [facility] Jun, [place] [address] Al[place]so Go[place] [address] [place] Jun, Anxiety F41.9 [facility] [place] [address] [place] [address] [place] Jun, [facility] [place] [address] [facility] [address] Alfon[place], [place] [address] [place] [place] May, Encounter for general adult [facility] [place] medical [place] w/o [address] abnormal findings Z00.00 [facility] [address] Alfon[place], [place] [address] [facility] [address] [place]fon[place], [place] [address] Alfonso Go[place] [address] [employer] [place] May, [facility] [place] [address] [place] [address] [place] May, Hep C w/o coma, chronic [facility] [place] B18.2 [address] [place] [address] [place] May, Hep C w/o coma, chronic [facility] [place] B18.2 [address] [address] [place] May, [facility] [place] [address] [place] [address] [place] May, [facility] [place] [address] [place] [address] [place] May, [facility] [place] [address] [place] [address] [place] Apr, [facility] [place] [address] [facility] [address] [place] Apr, [facility] [place] [address] [place] [address] [employer] [place] Apr, Elevated BP without [facility] [place] diagnosis of hypertension R03.0 Facilitated Enrollment [address] Alfonso Apr, - [facility] [place] [address] [place] [address] [employer] [place] Apr, Chronic viral hepatitis C [facility] [place] B18.2 ; Cryoglobulinemia D89.1 ; Nicotine dependence, cigarettes, uncomplicated F17.210 and Cocaine abuse in remission F14.10 [facility] [address] Alfonso [place], Oct, [place] [address] September, [facility] [place] [address] September, [facility] [place] [address] September, [facility] [place] [address] September, [facility] [place] [address] September, [facility] [place] [address] [facility] [address] Alfonso [place], September, [address] September, History of heroin abuse [facility] [place] Z87.898 and Cannabis dependence, abuse F12.[address] September, [facility] [place] [address] September, Excessive sweating R61 ; [facility] [place] Erectile dysfunction, unspecified erectile dysfunction type N52.9 ; Ejaculatory disorder N53.19 ; Sleep disorder G47.9 and Anxiety F41.9 [facility] [address] Alfonso [place], September, [place] [address] Aug, [facility] Alfonso Goetz C[place] [address] Aug, [facility] [place] [address] [facility] [address] Alfonso [place], Aug, [address] Aug, Routine general medical [facility] [place] examination at a [place] [address] care facility Z00.00 ; History of hepatitis C Z86.19 ; Nicotine dependence, cigarettes, uncomplicated F17.210 ; History of heroin abuse Z87.898 ; Cannabis dependence, abuse F12.20 ; Screening examination for sexually transmitted disease Z11.3 ; Special screening examination for other specified viral diseases Z11.59 ; Allergic rhinitis J30.9 ; Depression F32.9 and Skin disorder L98.[address] Aug, [place] [address] 14 Aug, 2016 Dizziness R42 ; BPH ( benign [place] prostatic hypertrophy) with [address] urinary retention N40.0 and Tinnitus, bilateral H93.[address] Aug, [facility] [place] [address] Aug, [place] [address] Aug, [place] [address] Aug, [place] [address] Aug, [facility] [place] [address] Aug, History of hepatitis C [place], [place] Z86.19 ; Localized edema [address] R60.0 ; Chronic viral hepatitis C B18.2 and Cryoglobulinemia D89.1 [facility] [address] [place], [place] [address] Aug, History of hepatitis C [place] Z86.19 [address] Aug, [place] [address] Jul, Low back pain M54.5 ; [place] edema R60.0 and Dysuria [address] [address] Jul, BPH (benign prostatic [place] hypertrophy) with urinary [address] retention N40[address] Jul, Low back pain M54.5 ; [place] edema R60.0 ; BPH (benign [address] prostatic hypertrophy) with urinary retention N40.0 ; Acute hepatitis C B17.10 and Elevated liver enzymes R74.[address] Jun, Hepatitis C virus [place] infection, unspecified [address] chronicity B19.[address] May, [facility] [address] May, Routine general medical [facility] [place] examination at a [address] facility Z00.00 ; History of hepatitis C Z86.19 ; Nicotine dependence, cigarettes, uncomplicated F17.210 ; History of heroin abuse Z87.898 ; Cannabis dependence, abuse F12.20 ; Screening examination for sexually transmitted disease Z11.3 ; Special screening examination for other specified viral diseases Z11.59 ; Allergic rhinitis J30.9 ; Depression F32.9 and Skin disorder L98.9 Facilitated Enrollment UNKNOWN May, - Alfonso [place] [address] Apr, Anxiety 300.00 [facility] [place] Mar, Stress headaches F45.41 [facility] [place] Mar, Dysuria R30.0 [facility] [place] Mar, [facility] [place] [address] [address] Mar, [facility] [place] [address] [place] [address] Feb, [facility] [place] [address] [place] [address] Feb, [facility] [place] [address] Feb, Right ankle injury S99.911A [facility] [place] [address] [place] [address] Feb, [facility] [place] [address] Jan, Injury of right knee, leg [facility] [place] ankle and foot 959.7 and [address] Dysuria 788.[address] Jan, [facility] [place] [address] [address] [place] Jan, Right ankle pain 719.47 [facility] [place] [address] Jan, [facility] [place] [address] 14 Jan, 2015 Right ankle pain 719.47 and [facility] [place] Cannabis abuse 305.20 [address] Jan, [facility] [place] [address] Jan, Elevated liver enzymes [facility] [place] 790.5 [address] Jan, Elevated liver function [facility] CRISTELA [place]acon tests 790.[address] [place] [address] Jan, Anxiety 300.00 ; History of [facility] [place] heroin abuse 305.53 ; COCAINE ABUSE-IN REMISS 305.63 ; History of hepatitis C V12.09 and Tobacco use disorder 305.[address] Dec, [facility] [place] [address] Dec, [facility] [address] Nov, Skin disorder 709.9 ; [facility] [place] History of heroin abuse 305.53 ; Low back pain 724.2 ; COCAINE ABUSE-IN REMISS 305.63 and Vomiting 787.[address] Nov, Anxiety 300.00 [facility] [place] [address] Oct, [facility] [place] [address] [facility] [address] [place], [place] [address] Oct, Degenerative disc disease , [facility] [place] lumbar 722.52 ; History of heroin abuse 305.53 ; COCAINE ABUSE-IN REMISS 305.63 ; Back pain 724.5 and Anxiety 300.[address] September, [facility] [place] [address] [address] Jul, [facility] [address] Jun, [facility] [address] Alfonso Go[place] [address] May, [facility] [place] [address] [facility] May, [facility] [place] [address] [facility] Apr, [facility] [place] [address] Alfonso Goetz [address] Mar, [facility] [place] [address] Mar, Routine general medical [place] examination at a [address] facility V70.0 ; Low back pain 724.2 ; Anxiety disorder 300.00 ; History of hepatitis C V12.09 ; Need for influenza vaccination V04.81 and VACCIN FOR DISEASE NEC V05.[address] May, [place] [address] May, [place] [address] May, Low back pain 724.2 [place] [address] IMMUNIZATIONS No Known Immunizations SOCIAL HISTORY Never Assessed REASON FOR REFERRAL FUNCTIONAL STATUS PLAN OF CARE VITAL SIGNS MEDICATIONS Medication Instructions Dosage Frequency Start Date End Date Duration Status BusPIRone HCl 5 Orally Three 1 tablet 15 Feb, 10 days Active MG times a day prn 2019 aniety PROCEDURES No Known procedures RESULTS No Results REASON FOR VISIT possible pyschiatrist consultation Insurance Providers [facility] Member Patient Patient Patient Patient Patient Subscriber Subscriber Subscriber Group Insurance Plan Plan Plan Plan ID Relationship Address Phone Name Date of ID Name Date of No Type Insurance Insurance Insurance Coverage to Subscriber Address Phone Name Dates Case [phone] Case self Ivan [id number] [facility] [address] Blue [phone] Blue self Ivan [id number] Choice Opt 9255 Attn 83 Choice Opt Colf [id number] [place] Claims [id number] [place] [facility] [place] [facility] H[facility] [place] [facility] [address] [facility] Slide [phone] [facility] Slide self Ivan [id number] M Family Alfon[place] [address] [place] [address] Planning Full Fee Full Fee Blue [phone] Blue self Ivan [id number] Choice Opt [id number] Choice Opt Colf 6 Medical [place] Medical [id number] Medicaid [phone] Medicaid self Ivan [id number] [facility] 00 [place] [address] Medicaid [phone] Medicaid self Ivan [id number] Wrap [facility] 56 Wrap [place] [id number] MEDICAL (GENERAL) HISTORY Type Description Date Medical [...] 3 times- has been in [facility] -97 days is on parole Medical History is in [facility] - 04/05 Medical History 12/04/14ED visit for skin lesion Medical History 11/28/14 ED visit overdose synthetic THC Medical History 01/22/15 smoking THC Medical History February again -for 2weeks , [place] - hematuria while there Medical History 04/14/15 ED visit red spots on legs - atarax - dermatology referral Medical History released from long term 05/27/16 Medical History 06/29/16 dermatology consult guttate [...]
--- OUTSIDE RECORDS SUMMARY | 2019-04-02 11:00 | XMS REPORT ---
:1980 Author Organization [facility] Address [address] [place] [address] Care Team Providers Name Role Phone Keely Rangel Unavailable Unavailable PROBLEMS Type Condition ICD9-CM KNL40-EN Onset Condition SNOMED Code Code Code Dates Status Problem Low back pain M54.5 Active 737094845 Problem History of hepatitis Z86.19 Active 183735848 C Problem Acute hepatitis C B17.10 Active 876287685 Problem Cocaine abuse in F14.10 Active 585616459 remission Problem Cryoglobulinemia D89.1 Active 634941835278656 Problem BPH (benign N40.0 Active 147322564 prostatic hypertrophy) with urinary retention Problem Tinnitus, bilateral H93.13 Active 2801765185979 Problem Chronic viral B18.2 Active 352813584 hepatitis C Problem Erectile N52.9 Active 406107491 dysfunction, unspecified erectile dysfunction type Problem Hep C w/o coma, B18.2 Active 048115701 chronic Problem Chronic pain after G89.29 Active 213161406 traumatic injury Problem 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 86896112 personality disorder Problem Sleep disorder G47.9 Active 38258968 Problem History of heroin Z87.898 Active 225371170508203 abuse Problem Mood disorder F39 Active 21393185 Problem Anxiety F41.9 Active 82000564 Problem Cannabis dependence, F12.20 Active 06825648 abuse Problem Nicotine dependence, F17.210 Active 07834803 cigarettes, uncomplicated Problem Pain, chronic due to G89.21 Active 266793783 trauma Problem Tinnitus of both H93.13 Active 5116588840299 ears Problem Environmental Z91.09 Active 983967288 allergies Problem Reactive depression F32.9 Active 42613362 (situational) ALLERGIES No Information ENCOUNTERS Encounter Location Date Diagnosis [address] Mar, [facility] [place] [address] Feb, [facility] [place] [address] Feb, [facility] [place] [address] Feb, Anxiety F41.9 and [place] Antisocial personality [address] disorder [address] Feb, [facility] [place] [place] [facility], initial encounter [address] T81.31XA and Discharge from wound T14.8XXA [address] Feb, [facility] [place] [address] Feb, [place] [address] Feb, Anxiety F41.9 and [place] Antisocial personality [address] disorder F60.[address] Feb, [place] [address] right tibia Z87.81 and Right foot pain M79.[address] Feb, 2019 [place] [address] Feb, [facility] [place] [address] Feb, [facility] [place] [address] Feb, Anxiety F41.9 ; History of [place] heroin abuse Z87.898 ; [address] Cannabis dependence, abuse F12.20 and Cocaine abuse in remission F14.[address] Feb, Mood disorder F39 and [place] Antisocial personality [address] disorder F60.[address] Jan, Anxiety F41.9 and [place] Antisocial personality [address] disorder F60[address] Jan, Anxiety F41.9 [place] [address] Jan, [place] [address] Jan, Anxiety F41.9 [facility] [place] [address] [facility] [address] [facility] Dec, [place] [address] Dec, Anxiety F41.9 ; Mood [facility] [place] disorder F39 and Antisocial [address] personality disorder F60.[address] Dec, Anxiety F41.9 [place] [address] Dec, [facility] [place] [address] Dec, [facility] [place] [address] Dec, Mood disorder F39 and [facility] [place] Antisocial personality [address] disorder F60.[address] Nov, [place] [address] (situational) F32.[address] Nov, Right wrist pain M25.531 [facility] CRISTELA [place] and Environmental allergies [address] Z91.09 [facility] [address] [facility] Nov, [facility] [place]STELA [place] [address] September, [facility] [place] [address] September, [facility] [place] [address] Jul, Herpes zoster without [facility] [place] complication B02.9 [address] [facility] [address] [facility] Jul, [place] [address] [facility] [address] [facility] Jul, Tinnitus of both ears [place] H93.13 [address] May, [facility] [place]ST[place] [address] May, Encounter for general adult Health [facility] [place]STELA [place] medical examination w/o [address] abnormal findings Z00.00 [facility] [address] [facility] Apr, [place] [address] [facility] [address] [place] [address] Feb, Chronic pain after [place] traumatic injury G89.29 [address] [facility] [address] [facility] Feb, [place] [address] Jan, [place] [address] [place] [address] [place] Jan, History of hepatitis C [facility] CRISTELA Chacon Z86.19 [address] [place] [address] [place] Jan, [facility] [place]STEL[place] [address] [place] [address] [place] Dec, Bilateral edema of lower [facility] CRISTELA [place]acon extremity R60.0 [address] [place] [address] [place] Nov, Skin lesion of right arm [facility] CRISTELA Chacon L98.9 [address] [place] [address] [place] Nov, [facility] [place] [address] [place] [address] [place] Nov, [facility] CRISTELA [place] [address] [address] Nov, [place] [address] [facility] [address] [place] [address] Oct, [place] [address] [facility] [address] [place] [address] Oct, [place] [address] Alfonso Goetz [address] [place] Oct, [facility] [place] [address] Alfonso Goetz [address] [place] Oct, [facility] [place] [place] [address] Oct, [place] [address] [place] [address] [place] Oct, [facility] [place] [address] [facility] [address] [place] [address] Oct, [place] [address] [place] [address] [place] Oct, Lower abdominal pain R10.30 [facility] CRISTELA [place]acon ; Strain of lumbar [address] paraspinous muscle, initial encounter S39.012A and History of hepatitis C Z86.[address] Oct, History of hepatitis C [facility] CRISTELA Chacon Z86.19 [address] Oct, Right lower quadrant [facility] CRISTELA Chacon abdominal pain R10.31 ; [address] Anxiety F41.9 and Bone spur M77.[address] Oct, [place] [address] September, [facility] C[place]STEL[place] [address] September, [place] [address] September, [facility] [place] [address] September, Abrasion of left cornea, [facility] CRISTELA Chacon initial encounter S05.02XA [address] September, [facility] [place] [place] [address] Case Management [address] [place], [place] [address] Aug, [facility] C[place]STEL[place] [address] Aug, Acute hepatitis C B17.10 [facility] [place] [address] Aug, Acute hepatitis C B17.10 [facility] CRISTELA [place] and Dizziness R42 [address] Aug, [facility] [place] [address] Aug, [facility] [address] [address] [place] Aug, Anxiety F41.9 and Sleep [facility] CRISTELA Chacon disorder G47.9 [address] Aug, [facility] C[place]ST[place] [address] Jul, [place] [address] [address] [place] Jul, [facility] CRISTELA [place] [address] Alfonso Go[place] [address] [employer] [place] Jul, Acute hepatitis C B17.10 [facility] CRISTELA [place] [address] [place] [address] [place] Jul, [facility] CRISTEL[place] [address] [facility] [address] [place], [place] [address] [facility] Management [address] [place], [place] [address] [place] [address] [place] Jul, [facility] CRISTELA [place] [address] [facility] [address] [place], [place] [address] [place] [address] [employer] [place] Jul, Anxiety F41.9 ; Sleep [facility] CRISTELA [place] disorder G47.9 and Acute [address] hepatitis C B17.10 [place] [address] [employer] [place] Jul, [facility] C[place]STEL[place] [address] Jun, [place] [address] [place] [address] [employer] [place] Jun, Anxiety F41.9 [facility] CRISTELA [place] [address] Alfonso Goetz [place] [address] [employer] [place] Jun, [facility] C[place]STEL[place] [address] [facility] [address] [place], [place] [address] [place] [address] [employer] [place] May, Encounter for general adult [facility] CRISTELA Chacon medical examination w/o [address] abnormal findings Z00.00 [facility] [address] [place], [place] [address] [facility] Management [address] [place], [place] [address] Alfonso Goetz [place] [address] [employer] [place] May, [facility] [place]ST[place] [address] Alfonso Goetz [place] [address] [employer] [place] May, Hep C w/o coma, chronic [facility] CRISTELA Chacon B18.2 [address] [place] [address] [employer] [place] May, Hep C w/o coma, chronic [facility] CRISTELA [place] B18.2 [address] [place] [address] [employer] [place] May, [facility] Alfonso Goetz [place] [address] [place] [address] May, [facility] [place] [address] May, [facility] [place] [address] Apr, [facility] [place] [address] [facility] [address] [place] Apr, [facility] [place] [address] Apr, Elevated BP without [place] diagnosis of hypertension [address] R03.0 Facilitated Enrollment [address] [place] Apr, [facility] [place] [address] [place] [address] Apr, Chronic viral hepatitis C [facility] [place] B18.2 ; Cryoglobulinemia D89.1 ; Nicotine dependence, cigarettes, uncomplicated F17.210 and Cocaine abuse in remission F14.10 [facility] [address] [place], Oct, [address] September, [facility] [place] [address] September, [facility] [place] [address] September, [facility] [place] [address] September, [facility] [place] [address] September, [facility] [place] [address] [facility] [address] [place], September, [address] September, History of heroin abuse [place] Z87.898 and Cannabis [address] dependence, abuse F12.[address] September, [facility] [place] [address] [address] [place] September, Excessive sweating R61 ; [facility] [place] Erect[place] dysfunction, [address] unspecified erectile dysfunction type N52.9 ; Ejaculatory disorder N53.19 ; Sleep disorder G47.9 and Anxiety F41.9 [facility] [address] [place], [place] [address] Aug, [facility] [place] [address] Aug, [facility] [place] [address] Case Management [address] Alfon[place], [place] [address] Aug, Routine general medical [facility] [place] examination at a [place] [address] care facility Z00.00 ; History of hepatitis C Z86.19 ; Nicotine dependence, cigarettes, uncomplicated F17.210 ; History of heroin abuse Z87.898 ; Cannabis dependence, abuse F12.20 ; Screening examination for sexually transmitted disease Z11.3 ; Special screening examination for other specified viral diseases Z11.59 ; Allergic rhinitis J30.9 ; Depression F32.9 and Skin disorder L98.9 [place] [address] [facility] Aug, [place] [address] Aug, Dizziness R42 ; BPH ( benign [facility] [place] prostatic hypertrophy) with [address] urinary retention N40.0 and Tinnitus, bilateral H93.[address] Aug, [facility] [place] [address] Aug, [facility] [place] [address] Aug, [facility] [place] [address] Aug, [facility] [place] [address] Aug, [facility] [place] [address] Aug, History of hepatitis C [facility] [place] Z86.19 ; Localized edema [address] R60.0 ; Chronic viral hepatitis C B18.2 and Cryoglobulinemia D89.1 [facility] Management [address] [place], [place] [address] Aug, History of hepatitis C [place] Z86.19 [address] Aug, [place] [address] Jul, Low back pain M54.5 ; [place] edema R60.0 and Dysuria R30.[address] Jul, BPH (benign prostatic [place] hypertrophy) with urinary retention N40.[address] Jul, Low back pain M54.5 ; [place] edema R60.0 ; BPH (benign prostatic hypertrophy) with urinary retention N40.0 ; Acute hepatitis C B17.10 and Elevated liver enzymes R74.[address] Jun, Hepatitis C virus [place] infection, unspecified chronicity B19.[address] May, [address] May, Routine general medical [place] examination at a [address] facility Z00.00 ; History of hepatitis C Z86.19 ; Nicotine dependence, cigarettes, uncomplicated F17.210 ; History of heroin abuse Z87.898 ; Cannabis dependence, abuse F12.20 ; Screening examination for sexually transmitted disease Z11.3 ; Special screening examination for other specified viral diseases Z11.59 ; Allergic rhinitis J30.9 ; Depression F32.9 and Skin disorder L98.9 Facilitated Enrollment UNKNOWN May, - [address] Apr, Anxiety 300.00 [place] [address] [place] [address] Mar, Stress headaches F45.[address] Mar, Dysuria R30.[address] Mar, [address] Mar, [address] Feb, [place] [address] Feb, [facility] [place] [address] Feb, Right ankle injury S99.911A [facility] [place] [address] Feb, [facility] Alfonso Goetz [place] [address] Jan, Injury of right knee, leg [facility] [place] ankle and foot 959.7 and Dysuria 788.[address] Jan, [facility] [place] [address] Jan, Right ankle pain 719.47 [facility] [place] [address] Jan, [facility] [place] [address] Jan, Right ankle pain 719.47 and [facility] [place] Cannabis abuse 305.20 [address] Jan, [facility] [place] [address] Jan, Elevated liver enzymes [facility] [place] 790.5 [address] [place] [address] Jan, Elevated liver function [facility] [place] tests 790.6 [address] Jan, Anxiety 300.00 ; History of [facility] [place] heroin abuse 305.53 ; COCAINE ABUSE-IN REMISS 305.63 ; History of hepatitis C V12.09 and Tobacco use disorder 305.[address] Dec, [place] [address] Dec, [facility] [place] [address] Nov, Skin disorder 709.9 ; [facility] [place] History of heroin abuse 305.53 ; Low back pain 724.2 ; COCAINE ABUSE-IN REMISS 305.63 and Vomiting 787.[address] [place] [address] Nov, Anxiety 300.00 [facility] [place] [address] Oct, [facility] [place] [address] [facility] [address] [place], [place] [address] Oct, Degenerative disc disease , [facility] Al[place] lumbar 722.52 ; History of heroin abuse 305.53 ; COCAINE ABUSE-IN REMISS 305.63 ; Back pain 724.5 and Anxiety 300.[address] September, [facility] [place] [address] Jul, [facility] C[place]STEL[place] [address] Jun, [facility] [place] [address] May, [facility] [place] [address] [facility] [address] [facility] May, [facility] [place] [address] [facility] [address] [facility] Apr, [facility] [place] [address] Mar, [facility] [place] [address] Mar, Routine general medical [place] examination at a [address] care facility V70.0 ; Low back pain 724.2 ; Anxiety disorder 300.00 ; History of hepatitis C V12.09 ; Need for influenza vaccination V04.81 and VACCIN FOR DISEASE NEC V05.[address] May, [place] [address] May, [place] [address] May, Low back pain 724.2 [place] [address] IMMUNIZATIONS No Known Immunizations SOCIAL HISTORY Never [...] Nov, 30 day(s) Not-Takin Brace/Splint - right 2019 g wrist PROCEDURES No Known procedures RESULTS No Results REASON FOR VISIT Insurance Providers [facility] Member Patient Patient Patient Patient Patient Subscriber Subscriber Subscriber Group Insurance Plan Plan Plan Plan ID Relationship Address Phone Name Date of ID Name Date of No Type Insurance Insurance Insurance Coverage to Subscriber Address Phone Name Dates Medicaid [id number] Medicaid self Ivan [id number] Wrap [facility] [address] [address] Blue [address] Blue self Ivan [id number] Choice Opt [address] 83 Choice Opt Colf [id number] Twisp Claims [id number] Twisp Hplex [place] [facility] H[facility] [place] [facility] [address] Case [phone] Case self Ivan [id number] Management [place] 02 Management Colf [facility] [address] [facility]ly [facility] Blue [address] Blue self Ivan [id number] Choice Opt [id number] Choice Opt Colf 6 Medical [facility] Medical [address] Medicaid [id number] Medicaid self Ivan [id number] [facility] 00 Col[address] [address] [facility] Slide [phone] [facility] Slide self Ivan [id number] M Family [place] [address] [place] [address] Planning Full Fee Full Fee MEDICAL (GENERAL) HISTORY Type Description Date Medical History Depression /anxiety Medical History Heroin and cocaine addcition (remission 9.2812)-05/08/13was when he last used IVDU- has used [...] incarcerated - 3 times- has been in [facility] -97 days is on parole Medical History is in [facility] - 04/05 Medical History 12/04/14ED visit for skin lesion Medical History 11/28/14 ED visit overdose synthetic THC Medical History 01/22/15 smoking THC Medical History February Detox again -for 2weeks , [facility] - hematuria while there Medical History 04/14/15 ED visit red spots on legs - atarax - dermatology referral Medical History released from nursing home 05/27/16 Medical History 06/29/16 dermatology consult guttate [...]
--- OUTSIDE RECORDS SUMMARY | 2019-04-02 11:00 | XMS REPORT ---
:1980 Author Organization [facility] Address [address] [place] [address] Care Team Providers Name Role Phone Diana Grimes Unavailable Unavailable PROBLEMS Type Condition ICD9-CM YNI22-CO Onset Condition SNOMED Code Code Code Dates Status Problem Low back pain M54.5 Active 996030550 Problem History of hepatitis Z86.19 Active 986825383 C Problem Acute hepatitis C B17.10 Active 345917117 Problem Cocaine abuse in F14.10 Active 047159338 remission Problem Cryoglobulinemia D89.1 Active 443556808033426 Problem BPH (benign N40.0 Active 140026061 prostatic hypertrophy) with urinary retention Problem Tinnitus, bilateral H93.13 Active 0517201834051 Problem Chronic viral B18.2 Active 198511273 hepatitis C Problem Erectile N52.9 Active 398473661 dysfunction, unspecified erectile dysfunction type Problem Hep C w/o coma, B18.2 Active 093804140 chronic Problem Chronic pain after G89.29 Active 893520874 traumatic injury Problem 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 68804375 personality disorder Problem Sleep disorder G47.9 Active 03787427 Problem History of heroin Z87.898 Active 088133679068369 abuse Problem Mood disorder F39 Active 95241624 Problem Anxiety F41.9 Active 61718645 Problem Cannabis dependence, F12.20 Active 91010541 abuse Problem Nicotine dependence, F17.210 Active 79696259 cigarettes, uncomplicated Problem Pain, chronic due to G89.21 Active 037004729 trauma Problem Tinnitus of both H93.13 Active 4394433926220 ears Problem Environmental Z91.09 Active 471448336 allergies Problem Reactive depression F32.9 Active 36707480 (situational) ALLERGIES No Information ENCOUNTERS Encounter Location Date Diagnosis [address] Feb, [place] [address] Feb, Anxiety F41.9 and [place] Antisocial personality [address] disorder F60.2 [facility] Feb, 2019 [place] [address] right tibia Z87.81 and Right foot pain M79.671 [facility] [address] [facility] 10 Feb, 2019 [place] [address] Feb, [place] [address] Feb, [facility] [place] [address] Feb, Anxiety F41.9 ; [facility] [place] heroin abuse Z87.898 ; [address] Cannabis dependence, abuse F12.20 and Cocaine abuse in remission F14.[address] Feb, Mood disorder F39 and [place] Antisocial personality [address] disorder F60.[address] Jan, Anxiety F41.9 and [place] Antisocial personality [address] disorder F60[address] Jan, Anxiety F41.9 [place] [address] Jan, [place] [address] Jan, Anxiety F41.9 [place] [address] [facility] [address] [facility] Dec, [place] [address] [address] [place] Dec, Anxiety F41.9 ; Mood [facility] [place] disorder F39 and Antisocial [address] personality disorder F60.2 [address] [place] Dec, Anxiety F41.9 [place] [address] [address] [place] Dec, [place] [address] [place] [address] Dec, [facility] [place] [address] [place] [address] Dec, Mood disorder F39 and [facility] CRISTELA [place] Antisocial personality [address] disorder F60.2 [facility] [address] [facility] Nov, [place] [address] (situational) F32.[address] [place] Nov, Right wrist pain M25.531 [facility] CRISTELA [place] and Environmental allergies [address] Z91.09 [facility] Nov, [facility] [place] [address] [place] [address] September, [facility] [place] [address] September, [facility] [place] [address] [place] Jul, Herpes zoster without [facility] CRISTELA [place] complication B02.9 [address] Jul, [place] [address] Jul, Tinnitus of both ears [place] H93.13 [address] [place] May, [facility] [place] [address] [place] [address] May, Encounter for general adult [facility] [place] medical [place] w/[place] [address] abnormal findings Z00.00 [facility] [address] [facility] Apr, [place] [address] Feb, Chronic pain after [place] traumatic injury G89.29 [address] [facility] [address] [facility] Feb, [place] [address] Jan, [place] [address] Jan, History of hepatitis C [facility] CRISTELA [place] Z86.19 [address] [place] Jan, [facility] [place] [address] [place] Dec, Bilateral edema of lower [facility] [place]STELA [place] extremity R60.0 [address] [place] [address] Nov, Skin lesion of right arm [facility] [place] L98.9 [address] [place] [address] Nov, [facility] [place] [address] [place] [address] Nov, [facility] [place] [address] [address] [facility] Nov, [place] [address] Oct, [place] [address] Oct, [place] [address] [facility] [place] [address] Oct, [facility] [place] [address] [place] [address] Oct, [facility] [place] [address] [address] [facility] Oct, [place] [address] [place] [address] Oct, [facility] [place] [address] Oct, [place] [address] [place] Oct, Lower abdominal pain R10.30 [facility] CRISTELA [place] ; Strain of lumbar [address] paraspinous muscle, initial encounter S39.012A and History of hepatitis C Z86.19 [place] [address] Oct, History of hepatitis C [facility] [place] Z86.19 [address] [facility] [place] [address] Oct, Right lower quadrant [facility] CRISTELA Chacon abdominal pain R10.31 ; [address] Anxiety F41.9 and Bone spur M77.9 [facility] [address] [place] [address] Oct, [place] [address] [facility] [place] [address] September, [facility] [place] [address] September, [place] [address] September, [facility] [place] [address] [facility] [place] [address] [place] September, Abrasion of left cornea, [facility] [place] initial encounter S05.02XA [address] [facility] [place] [address] September, [facility] [place] [address] Case Management [address] [place], [place] [address] [place] [address] [place] Aug, [facility] [place] [address] [facility] [place] [address] [place] Aug, Acute hepatitis C B17.10 [facility] [place] [address] [place] [address] [place] Aug, Acute hepatitis C B17.10 [facility] [place] CRISTELA and Dizziness R42 [address] [facility] [place] [address] [place] Aug, [facility] [place] [address] [facility] [place] [address] [place] Aug, [facility] Alfonso [place] [address] [place] [address] [place] Aug, Anxiety F41.9 and Sleep [facility] Alfonso Go[place] CRISTELA disorder G47.9 [address] [place] [address] [place] Aug, [facility] Alfonso Go[place] C[place]ST[place]A [address] Jul, [place] [address] [place] [address] [place] Jul, [facility] Bhavesh Go[place] C[place]A [address] [place] [address] [place] Jul, Acute hepatitis C B17.10 [facility] Alfonso Go[place] C[place]STELA [address] [facility] [address] [place] Jul, [facility] Alfonso Go[place] C[place]A [address] [facility] [address] [place], [place] [address] [facility] [address] [place] [address] Al[place] Go[place] [address] [place] Jul, [facility] Alfonso Goetz C[place]A [address] [facility] [address] [place], [place] [address] [place] [address] [place] Jul, Anxiety F41.9 ; Sleep [facility] CRISTELA [place] disorder G47.9 and Acute [address] hepatitis C B17.10 [place] [place] [address] [place] Jul, [facility] [place] [address] [facility] [address] [facility] Jun, [place] [address] [place] [address] Jun, Anxiety F41.9 [facility] [place] [address] [address] [place] Jun, [facility] [place] [address] [facility] [address] [place], [place] [address] [address] [place] May, Encounter for general adult [facility] [place] [address] abnormal findings Z00.00 [facility] [address] [place], [place] [address] [facility] Management [address] [place], [place] [address] [place] [place] May, [facility] [place] [address] [place] May, Hep C w/o coma, chronic [facility] Alfonso Go[place] CRISTELA B18.2 [address] [place] [address] May, Hep C w/o coma, chronic [facility] Alfonso Go[place] CRISTELA B18.2 [address] May, [facility] Alfonso Go[place]A [address] [place] [address] May, [facility] [place] [address] [place] [place] May, [facility] [place] [address] [place] [address] [place] Apr, [facility] [place] [address] [place] [facility] [address] [place] Apr, [facility] [place] [address] [address] [place] Apr, Elevated BP without [facility] diagnosis of hypertension R03.0 Facilitated Enrollment [address] Al[place]so Apr, - Alfonso Go[place] [facility] [place] [address] [address] [place] Apr, Chronic viral hepatitis C [facility] B18.2 ; Cryoglobulinemia D89.1 ; Nicotine dependence, cigarettes, uncomplicated F17.210 and Cocaine abuse in remission F14.10 [facility] [address] Alfonso [place], Oct, [place] [address] [place] September, [facility] [place] [address] [place] [address] September, [facility] [place] [address] September, [facility] CRISTELA Ch[place] [address] [place] [address] September, [facility] [place] [address] [place] September, [facility] CRISTELA Chacon Case Management [address] Al[place], September, [address] September, History of heroin abuse [facility] [place] Z87.898 and Cannabis [address] dependence, abuse F12.[address] September, [facility] Alfonso [place]A [address] [place] September, Excessive sweating R61 ; [facility] [place] Erectile dysfunction, unspecified erectile dysfunction type N52.9 ; Ejaculatory disorder N53.19 ; Sleep disorder G47.9 and Anxiety F41.9 [facility] [address] [place], September, [address] Aug, [facility] [place] [address] [place] Aug, [facility] Alfonso Goetz CRISTELA Case Management [address] [place], Aug, [address] Aug, Routine general medical [facility] [place] examination at a [address] Z00.00 ; History of hepatitis C Z86.19 ; Nicotine dependence, cigarettes, uncomplicated F17.210 ; History of heroin abuse Z87.898 ; Cannabis dependence, abuse F12.20 ; Screening examination for sexually transmitted disease Z11.3 ; Special screening examination for other specified viral diseases Z11.59 ; Allergic rhinitis J30.9 ; Depression F32.9 and Skin disorder L98.9 [facility] [address] [facility] Aug, [place] [address] Aug, Dizziness R42 ; BPH ( [facility] [place] prostatic hypertrophy) with [address] urinary retention N40.0 and Tinnitus, bilateral H93.[address] Aug, [place] [address] Aug, [facility] [place] [address] Aug, [facility] [place] [address] Aug, [place] [address] Aug, [facility] [place] [address] Aug, History of hepatitis C [place] Z86.19 ; Localized edema [address] R60.0 ; Chronic viral hepatitis C B18.2 and Cryoglobulinemia D89.1 [facility] [address] [place], [place] [address] Aug, History of hepatitis C [place] Z86.19 [address] Aug, [place] [address] Jul, Low back pain M54.5 ; [place] edema R60.0 and Dysuria [address] [address] Jul, BPH (benign prostatic [facility] [place] hypertrophy) with urinary [address] retention N40.[address] Jul, Low back pain M54.5 ; [place] edema R60.0 ; BPH (benign [address] prostatic hypertrophy) with urinary retention N40.0 ; Acute hepatitis C B17.10 and Elevated liver enzymes R74.[address] Jun, Hepatitis C virus [place] infection, unspecified [address] chronicity B19.[address] May, [address] May, Routine general medical [facility] [place] examination [place] [address] care facility Z00.00 ; History of hepatitis C Z86.19 ; Nicotine dependence, cigarettes, uncomplicated F17.210 ; History of heroin abuse Z87.898 ; Cannabis dependence, abuse F12.20 ; Screening examination for sexually transmitted disease Z11.3 ; Special screening examination for other specified viral diseases Z11.59 ; Allergic rhinitis J30.9 ; Depression F32.9 and Skin disorder L98.9 Facilitated Enrollment UNKNOWN May, - [place] [facility] [address] Apr, Anxiety 300.00 [facility] [address] Mar, Stress headaches F45.[address] Mar, Dysuria R30.[address] Mar, [address] Mar, [address] Feb, [facility] [address] Feb, [place] [address] Feb, Right ankle injury S99.911A [address] Feb, [address] Jan, Injury of right knee, leg [facility] [place] ankle and foot 959.7 and [address] Dysuria 788.[address] Jan, [facility] [place] [address] Jan, Right ankle pain 719.47 [place] [address] [place] Jan, [facility] [place] [address] Jan, Right ankle pain 719.47 and [facility] Cannabis abuse 305.20 [address] Jan, [facility] [place] [address] Jan, Elevated liver enzymes [facility] CRISTELA Chacon 790.5 [address] [place] [address] Jan, Elevated liver function [facility] [place] tests 790.6 [address] [place] [address] Jan, Anxiety 300.00 ; History of [facility] CRISTELA Ch[place] heroin abuse 305.53 ; COCAINE ABUSE-IN REMISS 305.63 ; History of hepatitis C V12.09 and Tobacco use disorder 305.[address] Dec, [facility] [place] [address] Dec, [facility] [place] [address] Nov, Skin disorder 709.9 ; [facility] CRISTELA [place] History of heroin abuse 305.53 ; Low back pain 724.2 ; COCAINE ABUSE-IN REMISS 305.63 and Vomiting 787.[address] Nov, Anxiety 300.00 [facility] [place] [address] Oct, [facility] [address] [facility] [address] [place], [place] [address] Oct, Degenerative disc disease , [facility] CRISTELA Chacon lumbar 722.52 ; History of heroin abuse 305.53 ; COCAINE ABUSE-IN REMISS 305.63 ; Back pain 724.5 and Anxiety 300.[address] September, [facility] [place] [address] Jul, [facility] [place] [address] [place] [address] Jun, [facility] [place] [address] Alfon[place] Go[place] [address] May, [facility] [place] [address] Alfonso Goetz [facility] [address] [facility] May, [facility] [place] [address] Alfon[place] Go[place] [facility] Apr, [facility] [place] [address] [place] [address] Mar, [facility] [place] [address] [place]fon[place] Go[place] [address] Mar, Routine general medical [facility] [place] [facility] [address] V70.0 ; Low back pain 724.2 ; Anxiety disorder 300.00 ; History of hepatitis C V12.09 ; Need for influenza vaccination V04.81 and VACCIN FOR DISEASE NEC V05.[address] May, [place] [address] May, [place] [address] May, Low back pain 724.2 [place] [address] IMMUNIZATIONS No Known Immunizations SOCIAL HISTORY Never Assessed REASON FOR REFERRAL FUNCTIONAL STATUS PLAN OF CARE VITAL SIGNS MEDICATIONS Unknown Medications PROCEDURES No Known procedures RESULTS No Results REASON FOR VISIT requesting nurse Insurance Providers [facility] Member Patient Patient Patient Patient Patient Subscriber Subscriber Subscriber Group Insurance Plan Plan Plan Plan ID Relationship Address Phone Name Date of ID Name Date of No Type Insurance Insurance Insurance Coverage to Subscriber Address Phone Name Dates Blue [phone] Blue self Ivan [id number] Choice Opt [id number] Choice Opt Col[employer] 6 Medical [facility] [address] Medicaid [phone] Medicaid self Ivan [id number] [facility] 00 [address] [address] Blue [phone] Blue self Ivan [id number] Choice Opt 9255 Attn 83 Choice Opt Colf GG457 [place] Claims [id number] [place] [facility] [place] [facility] [place] [facility] [address] Case [phone] Case self Ivan [id number] Management [place] 02 Management Colf [facility] [address] Community Medicaid [id number] Medicaid self Ivan [id number] [facility] 56 Wrap [place] [address] FLC Slide [phone] [facility] Slide self Ivan [id number] M Family [place] 02 [place] [address] Planning Full Fee Full Fee MEDICAL (GENERAL) [...] incarcerated - 3 times- has been in [facility] -97 days is on parole Medical History is in [facility] - 04/05 Medical History 12/04/14ED visit for skin lesion Medical History 11/28/14 ED visit overdose synthetic THC Medical History 01/22/15 smoking [facility]C Medical History February again -for 2weeks , [place] - hematuria while there Medical History 04/14/15 [...]
--- OUTSIDE RECORDS SUMMARY | 2019-04-02 11:00 | XMS REPORT ---
:1980 Author Organization [facility] Address [address] [place] [address] Care Team Providers Name Role Phone Diana Grimes Unavailable Unavailable PROBLEMS Type Condition ICD9-CM [id number] Onset Condition SNOMED Code Code Code Dates Status Problem Low back pain M54.5 Active 973700478 Problem History of hepatitis Z86.19 Active 032028052 C Problem Acute hepatitis C B17.10 Active 362995291 Problem Cocaine abuse in F14.10 Active 084419707 remission Problem Cryoglobulinemia D89.1 Active 800446460640354 Problem BPH (benign N40.0 Active 098147826 prostatic hypertrophy) with urinary retention Problem Tinnitus, bilateral H93.13 Active 5696376459837 Problem Chronic viral B18.2 Active 616473374 hepatitis C Problem Erectile N52.9 Active 688609159 dysfunction, unspecified erectile dysfunction type Problem Hep C w/o coma, B18.2 Active 768936457 chronic Problem Chronic pain after G89.29 Active 148043673 traumatic injury Problem 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 09974969 personality disorder Problem Sleep disorder G47.9 Active 84502584 Problem History of heroin Z87.898 Active 339484711368324 abuse Problem Mood disorder F39 Active 73418253 Problem Anxiety F41.9 Active 68373570 Problem Cannabis dependence, F12.20 Active 02554715 abuse Problem Nicotine dependence, F17.210 Active 04191643 cigarettes, uncomplicated Problem Pain, chronic due to G89.21 Active 388428293 trauma Problem Tinnitus of both H93.13 Active 3289633003111 ears Problem Environmental Z91.09 Active 320847536 allergies Problem Reactive depression F32.9 Active 03907376 (situational) ALLERGIES No Information ENCOUNTERS Encounter Location Date Diagnosis [address] Feb, [place] [address] [facility] 10 Feb, 2019 [place] [address] Feb, [facility] [place] [address] Feb, [place] [address] Feb, Anxiety F41.9 ; History of [place] heroin abuse Z87.898 ; [address] Cannabis dependence, abuse F12.20 and Cocaine abuse in remission F14.[address] Feb, Mood disorder F39 and [place] Antisocial personality [address] disorder F60[address] Jan, Anxiety F41.9 and [place] Antisocial personality [address] disorder F60.[address] Jan, Anxiety F41.9 [place] [address] Jan, [place] [address] [address] [place] Jan, Anxiety F41.9 [place] [address] Dec, [place] [address] Dec, Anxiety F41.9 ; Mood [place] disorder F39 and Antisocial [address] personality disorder F60.[address] Dec, Anxiety F41.9 [place] [address] Dec, [place] [address] Dec, [facility] [place] [address] Dec, Mood disorder F39 and [place] Antisocial personality [address] disorder F60.[address] Nov, [place] [address] (situational) F32.[address] Nov, Right wrist pain M25.531 [facility] CRISTELA Chacon and Environmental allergies [address] Z91.09 Bee [facility] Nov, [facility] CRISTELA Goetz [address] Alfonso Goetz [address] September, [facility] Medical CRISTELA [place] [address] September, [facility] Medical BeeCRISTELA Arnold [address] Jul, Herpes zoster without [facility] CRISTELA Chacon complication B02.9 [address] [facility] [address] [facility] Jul, [place] [address] [facility] [address] [place] [address] Jul, Tinnitus of both ears [place] H93.13 [address] May, [facility] CRISTELA [place]acon [address] May, Encounter for general adult [facility] CRISTELA [place] [address] abnormal findings Z00.00 [facility] [address] [facility] Apr, [place] [address] [facility] [address] [facility] Feb, Chronic pain after [place] traumatic injury G89.29 [address] [facility] [address] [facility] Feb, [place] [address] [facility] Jan, [place] [address] Jan, History of hepatitis C [facility] CRISTELA Chacon Z86.19 [address] Jan, [facility] CRISTELA Chacon [address] [address] Dec, Bilateral edema of lower [facility] Medical CRISTELA Chacon extremity R60.0 [address] Bee [address] Nov, Skin lesion of right arm [facility] Medical CRISTELA Chacon L98.9 [address] Nov, [facility] Medical CRISTELA [place] [address] Nov, [facility] CRISTELA Chacon [address] Nov, [place] [address] Oct, [place] [address] Oct, [place] [address] Oct, [facility] Medical CRISTELA Chacon [address] Oct, [facility] CRISTELA Chacon [address] [address] [facility] Oct, [place] [address] Oct, [facility] CRISTELA Chacon [address] [address] Oct, [place] [address] Oct, Lower abdominal pain R10.30 [facility] CRISTELA Chacon ; Strain of lumbar [address] paraspinous muscle, initial encounter S39.012A and History of hepatitis C Z86.[address] Oct, History of hepatitis C [facility] CRISTELA Chacon Z86.19 [address] Oct, Right lower quadrant [facility] CRISTELA Chacon abdominal pain R10.31 ; [address] Anxiety F41.9 and Bone spur M77.[address] Oct, [place] [address] September, [facility] CRISTELA Chacon [address] [facility] [address] September, [place] [address] September, [facility] CRISTELA Chacon [address] September, Abrasion of left cornea, [facility] CRISTELA Chacon initial encounter S05.02XA [address] September, [facility] CRISTELA Chacon [address] Case Management [address] [place], [place] [address] [place] [address] [address] [place] Aug, [facility] [place]ST[place] [address] [place] [address] Aug, Acute hepatitis C B17.10 [facility] C[place]STELA [place] [address] [place] [address] Aug, Acute hepatitis C B17.10 [facility] CRISTELA Chacon and Dizziness R42 [address] [place] [address] Aug, [facility] [place] [address] [place] [address] Aug, [facility] [place]ST[place] [address] [place] [address] Aug, Anxiety F41.9 and Sleep [facility] Medical CRISTELA Chacon disorder G47.9 [address] [place] [address] [employer] [address] [place] Aug, [facility] Medical CRISTELA Chacon [address] Jul, [place] [address] Alfonso Goetz [place] [address] [address] [place] Jul, [facility] Medical CRISTELA Chacon [address] Alfonso Goetz [place] [address] [employer] [place] Jul, Acute hepatitis C B17.10 [facility] CRISTELA Tomas [address] Alfonso Goetz [place] [address] [address] [place] Jul, [facility] Medical CRISTELA [place]acon [address] [facility] Management [address] [place], [place] [address] Case Management [address] [place], [place] [address] Alfonso Goetz [place] [address] [address] [place] Jul, [facility] Medical CRISTELA Chacon [address] Case Management [address] [place], [place] [address] Alfonso Goetz [place] [address] [address] [place] Jul, Anxiety F41.9 ; Sleep [facility] [place] disorder G47.9 and Acute [address] hepatitis C B17.10 Alfonso Goetz [place] [address] [address] [place] Jul, [facility] Medical CRISTELA Chacon [address] [address] Jun, [place] [address] [place] [address] Jun, Anxiety F41.9 [facility] [place]STEL[place] [address] [address] [place] Jun, [facility] BeeCRISTELA [address] Case Management [address] Alfonso Goetz, [place] [address] May, Encounter for general adult [facility] [place]EL[place] w/[place] [address] abnormal findings Z00.00 [facility] [address] Alfonso Goetz, [place] [address] Case Management [address] Alfonso Goetz, [place] [address] [address] [place] May, [facility] BeeCRISTELA [address] [address] [place] May, Hep C w/o coma, chronic [facility] [place] B18.2 [address] May, Hep C w/o coma, chronic [facility] Alfonso Goetz MD B18.2 [address] [address] [place] May, [facility] BeeCRISTELA [address] May, [facility] [place] [address] Bee [address] May, [facility] [place] [address] [address] [place] Apr, [facility] [place] [address] [facility] [address] [place] Apr, [facility] Dental BishnuCRISTELA [address] [address] [place] Apr, Elevated BP without [facility] [place] diagnosis of hypertension [address] R03.0 Facilitated Enrollment [address] Al[place] Apr, [facility] [place] [address] [address] [place] Apr, Chronic viral hepatitis C [facility] Arnold B18.2 ; Cryoglobulinemia [address] D89.1 ; Nicotine dependence, cigarettes, uncomplicated F17.210 and Cocaine abuse in remission F14.10 [facility] [address] Alfonso Goetz, [place] [address] [address] [place] September, [facility] [place] [address] [address] [place] September, [facility] [address] Alfonso Goetz [address] September, [facility] Alfonso Goetz MD [address] September, [facility] Alfonso Goetz MD [address] September, [facility] CRISTELA Chacon Case Management [address] Alfonso Goetz, September, [address] September, History of heroin abuse [facility] [place] Z87.898 and Cannabis dependence, abuse F12.[address] September, [facility] [place] [address] September, Excessive sweating R61 ; [facility] [place] Erectile dysfunction, unspecified erectile dysfunction type N52.9 ; Ejaculatory disorder N53.19 ; Sleep disorder G47.9 and Anxiety F41.9 Case Management [address] Alfonso Goetz, September, [address] Aug, [facility] [place] [address] Aug, [facility] [place] Case Management [address] Alfonso Goetz, Aug, [address] Aug, Routine general medical [place] examination [place] [address] care facility Z00.00 ; History of hepatitis C Z86.19 ; Nicotine dependence, cigarettes, uncomplicated F17.210 ; History of heroin abuse Z87.898 ; Cannabis dependence, abuse F12.20 ; Screening examination for sexually transmitted disease Z11.3 ; Special screening examination for other specified viral diseases Z11.59 ; Allergic rhinitis J30.9 ; Depression F32.9 and Skin disorder L98.[address] Aug, [place] [address] [place] [address] [address] [place] Aug, Dizziness R42 ; BPH ( benign [place] prostatic hypertrophy) with urinary retention N40.0 and Tinnitus, bilateral H93.[address] Aug, [facility] [place] [address] Aug, [facility] [place] [address] Aug, [facility] [place] [address] Aug, [facility] [place] [address] Aug, [facility] [place] [address] Aug, History of hepatitis C [facility] [place] Z86.19 ; Localized edema [address] R60.0 ; Chronic viral hepatitis C B18.2 and Cryoglobulinemia D89.1 Case Management [address] [place], Aug, [address] Aug, History of hepatitis C [place] Z86.19 [address] Aug, [place] [address] Jul, Low back pain M54.5 ; [place] edema R60.0 and Dysuria [address] [address] Jul, BPH (benign prostatic [place] hypertrophy) with urinary [address] retention N40[address] Jul, Low back pain M54.5 ; [place] edema R60.0 ; BPH (benign [address] prostatic hypertrophy) with urinary retention N40.0 ; Acute hepatitis C B17.10 and Elevated liver enzymes R74.[address] Jun, Hepatitis C virus [facility] [place] infection, unspecified [address] chronicity B19.[address] May, [facility] [place] [address] May, Routine general medical [place] examination at a [address] facility Z00.00 ; History of hepatitis C Z86.19 ; Nicotine dependence, cigarettes, uncomplicated F17.210 ; History of heroin abuse Z87.898 ; Cannabis dependence, abuse F12.20 ; Screening examination for sexually transmitted disease Z11.3 ; Special screening examination for other specified viral diseases Z11.59 ; Allergic rhinitis J30.9 ; Depression F32.9 and Skin disorder L98.9 Facilitated Enrollment UNKNOWN May, - [address] Apr, Anxiety 300.00 [facility] [place] [address] Mar, Stress headaches F45.41 [place] [address] Mar, Dysuria R30.0 [facility] [place] [address] [address] Mar, [facility] [place] [address] Mar, [place] [address] Feb, [place] [address] Feb, [place] [address] Feb, Right ankle injury S99.911A [place] [address] Feb, [place] [address] Jan, Injury of right knee, leg [place] ankle and foot 959.7 and [address] Dysuria 788.[address] Jan, [place] [address] Jan, Right ankle pain 719.47 [facility] [place] [address] Jan, [place] [address] Jan, Right ankle pain 719.47 and [place] Cannabis abuse 305.20 [address] Jan, [facility] [place] [address] Jan, Elevated liver enzymes [facility] Bee CRISTELA 790.5 [address] Jan, Elevated liver function [facility] CRISTELA Chacon tests 790.6 [address] Jan, Anxiety 300.00 ; History of [facility] heroin abuse 305.53 ; COCAINE ABUSE-IN REMISS 305.63 ; History of hepatitis C V12.09 and Tobacco use disorder 305.[address] Dec, [facility] CRISTELA Goetz [address] Dec, [facility] CRISTELA Chacon [address] Nov, Skin disorder 709.9 ; [facility] [place] History of heroin abuse 305.53 ; Low back pain 724.2 ; COCAINE ABUSE-IN REMISS 305.63 and Vomiting 787.[address] Nov, Anxiety 300.00 [facility] [place] [address] Oct, [facility] [place] CRISTELA [address] [facility] [address] [place], [place] [address] Oct, Degenerative disc disease , [facility] Bee CRISTELA lumbar 722.52 ; History of heroin abuse 305.53 ; COCAINE ABUSE-IN REMISS 305.63 ; Back pain 724.5 and Anxiety 300.[address] September, [facility] [place]STELA [address] [address] Jul, [facility] [place] [address] Jun, [facility] CRISTELA Chacon [address] [address] May, [facility] [place] [address] [facility] [address] Alfon[place] May, [facility] Dental CRISTELA Goetz [address] [facility] [address] [facility] Apr, [place] [address] Mar, [place] [address] Mar, Routine general medical Health [place] examination at a [place] [phone] [facility] facility V70.0 ; Low back pain 724.2 ; Anxiety disorder 300.00 ; History of hepatitis C V12.09 ; Need for influenza vaccination V04.81 and VACCIN FOR DISEASE NEC V05.[address] May, [place] [address] May, [place] [address] May, Low back pain 724.2 [place] [address] IMMUNIZATIONS No Known Immunizations SOCIAL HISTORY Never Assessed REASON FOR REFERRAL FUNCTIONAL STATUS PLAN OF CARE VITAL SIGNS MEDICATIONS Medication Instructions Dosage Frequency Start End Date Duration Status Date Nicoderm CQ 21 Transdermal Once 1 patch to 24h 14 days Active MG/24HR a day skin PROCEDURES No Known procedures RESULTS No Results REASON FOR VISIT Rx refills Insurance Providers [facility] Member Patient Patient Patient Patient Patient Subscriber Subscriber Subscriber Group Insurance Plan Plan Plan Plan ID Relationship Address Phone Name Date of ID Name Date of No Type Insurance Insurance Insurance Coverage to Subscriber Address Phone Name Dates Blue [phone] Blue self Ivan 1980 [id number] Choice Opt [address] Choice Opt [id number] [id number] [place] [facility] [place] [facility] [place] [facility] [address] Blue [phone] Blue self Ivan 1980 [id number] Choice Opt [id number] Choice Opt Colf [address] [place] Medical [address] Medicaid [id number] Medicaid self Ivan 1980 [id number] [facility] 00 [address] [id number] Medicaid [id number] Medicaid self Ivan 1980 [id number] Wrap [facility] 56 Wrap [place] [address] [facility] [employer] [phone] [facility] [employer] self Ivan 1980 [id number] M Family Alfonso Goetz 02 [place] [id number] Planning Full Fee Full Fee Case [phone] Case self Ivan [id number] Management [place] [facility] [address] [facility] MEDICAL (GENERAL) HISTORY Type Description Date [...] incarcerated - 3 times- has been in [facility] -97 days is on parole Medical History is in [facility] - 04/05 Medical History 12/04/14ED visit for skin lesion Medical History 11/28/14 ED visit overdose synthetic THC Medical History 01/22/15 smoking THC Medical History February Detox again -for 2weeks , [place] - hematuria while there Medical History 04/14/15 ED visit red spots on legs - atarax - dermatology referral Medical History released from alf 05/27/16 Medical History 06/29/16 dermatology consult guttate [...]
--- OUTSIDE RECORDS SUMMARY | 2019-04-02 11:00 | XMS REPORT ---
:1980 Author Organization [facility] Address [address] [place] [address] Care Team Providers Name Role Phone Keely Rangel Unavailable Unavailable PROBLEMS Type Condition ICD9-CM [id number] Onset Condition SNOMED Code Code Code Dates Status Problem Low back pain M54.5 Active 333280805 Problem History of hepatitis Z86.19 Active 723963750 C Problem Acute hepatitis C B17.10 Active 300694552 Problem Cocaine abuse in F14.10 Active 124531070 remission Problem Cryoglobulinemia D89.1 Active 977269788070344 Problem BPH (benign N40.0 Active 402467266 prostatic hypertrophy) with urinary retention Problem Tinnitus, bilateral H93.13 Active 5424332520096 Problem Chronic viral B18.2 Active 868274069 hepatitis C Problem Erectile N52.9 Active 822162444 dysfunction, unspecified erectile dysfunction type Problem Hep C w/o coma, B18.2 Active 366482618 chronic Problem Chronic pain after G89.29 Active 490238036 traumatic injury Problem 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 08801053 personality disorder Problem Sleep disorder G47.9 Active 55017155 Problem History of heroin Z87.898 Active 246159717981141 abuse Problem Mood disorder F39 Active 61434586 Problem Anxiety F41.9 Active 77651295 Problem Cannabis dependence, F12.20 Active 81895030 abuse Problem Nicotine dependence, F17.210 Active 65470713 cigarettes, uncomplicated Problem Pain, chronic due to G89.21 Active 885872061 trauma Problem Tinnitus of both H93.13 Active 0187873150485 ears Problem Environmental Z91.09 Active 818056357 allergies Problem Reactive depression F32.9 Active 33681127 (situational) ALLERGIES No Information ENCOUNTERS Encounter Location Date Diagnosis [address] Feb, [facility] [place] [address] [place] [address] [address] Feb, Anxiety F41.9 and [place] Antisocial personality [address] disorder F60.2 Formerly [facility], [facility] [address] [facility] [address] Feb, 2019 [place] [address] [facility] [address] [facility] 10 Feb, [place] [address] [address] Feb, [facility] [place] [address] [address] Feb, [facility] [place] [address] [address] [place] Feb, Anxiety F41.9 ; History of [facility] [place] heroin abuse Z87.898 ; [address] Cannabis dependence, abuse F12.20 and Cocaine abuse in remission F14.10 [address] [place] Feb, Mood disorder F39 and [facility] [place] Antisocial personality [address] disorder F60.2 [address] [place] Jan, Anxiety F41.9 and [place] Antisocial personality [address] disorder F60.2 [place] [address] [address] [place] Jan, Anxiety F41.9 [facility] [place] [address] [address] Jan, [facility] [place] [address] [place] [address] [address] [place] Jan, Anxiety F41.9 [facility] [place] [address] [facility] [address] [facility] Dec, [place] [address] [place] [address] [address] [place] Dec, Anxiety F41.9 ; Mood [facility] [place] disorder F39 and Antisocial [address] personality disorder F60.2 [place] [address] [address] [place] Dec, Anxiety F41.9 [facility] [place] [address] [place] [address] [address] [place] Dec, [place] [address] [place] [address] [address] [place] Dec, [facility] [place] [address] Dec, Mood disorder F39 and [facility] [place] Antisocial personality [address] disorder F60.2 [facility] [address] [facility] Nov, [place] [address] (situational) F32.[address] [place] [address] Nov, Right wrist pain M25.531 [facility] CRISTELA [place] and Environmental allergies [address] Z91.09 [facility] Nov, [facility] [place]ELA [place] [address] [place] [address] September, [facility] Medical [place] [address] September, [place] [address] Jul, Herpes zoster without [facility] CRISTELA [place] complication B02.9 [address] Jul, [place] [address] Jul, Tinnitus of both ears [place] H93.13 [address] May, [facility] [place] [address] May, Encounter for general adult [facility] [place]ELA [place] [address] abnormal findings Z00.00 [facility] [address] [facility] Apr, [place] [address] [facility] [address] [place] [address] Feb, Chronic pain after [place], [place] traumatic injury G89.29 [address] [facility] [address] [facility] Feb, [place] [address] [place] [address] [facility] Jan, [place] [address] Jan, History of hepatitis C [facility] CRISTELA Chacon Z86.19 [address] Jan, [facility] [place] [address] Dec, Bilateral edema of lower [facility] C[facility]STELA [place] extremity R60.0 [address] [place]fon[place] Goetz [address] Nov, Skin lesion of right arm [facility] CRISTELA [place] L98.9 [address] Nov, [facility] [place] [address] Nov, [facility] [place] [address] Nov, [place] [address] Oct, [place] [address] Oct, [place] [address] Oct, [facility] [place] [address] Oct, [facility] [place] [address] [address] [facility] Oct, [place] [address] [place] [address] Oct, [facility] [place] [address] Oct, [place] [address] Oct, Lower abdominal pain R10.30 [facility] C[facility]STELA [place] ; Strain of lumbar [address] paraspinous muscle, initial encounter S39.012A and History of hepatitis C Z86.[address] Oct, History of hepatitis C [facility] CRISTELA [place]acon Z86.19 [address] [place] [address] Oct, Right lower quadrant [facility] CRISTELA [place]acon abdominal pain R10.31 ; [address] Anxiety F41.9 and Bone spur M77.[address] Oct, [place] [address] [address] September, [facility] [place] [address] September, [place] [address] [address] [place] September, [facility] [place] [address] [address] September, Abrasion of left cornea, [facility] C[facility]STELA [place]acon initial encounter S05.02XA [address] [place] [place] September, [facility] [place] [address] Case Management [address] [place], [place] [address] Alfonso Goetz [address] Aug, [facility] [place] [address] [place] Go[place] [address] [place] Aug, Acute hepatitis C B17.10 [facility] Go[place] [address] [place] [address] Aug, Acute hepatitis C B17.10 [facility] [place] CRISTELA and Dizziness R42 [address] [address] [place] Aug, [facility] [place] [address] [place] [address] Aug, [facility] Go[facility] [place] [address] [place] [address] Aug, Anxiety F41.9 and Sleep [facility] CRISTELA disorder G47.9 [address] [address] [place] Aug, [facility] [place] [address] Jul, [place] [address] Alfonso Goetz [address] Jul, [facility] [place] [address] Alfonso Goetz [address] [place] Jul, Acute hepatitis C B17.10 [facility] [place] [place] [address] Alfon[place] Go[place] [address] Jul, [facility] [place] [address] [facility] [address] [place], [place] [address] [facility] Management [address] [place], [place] [address] [place] [address] [address] Jul, [facility] [place]A [address] Case Management [address] [place], [place] [address] [place] [address] Jul, Anxiety F41.9 ; Sleep [facility] CRISTELA [place] disorder G47.9 and Acute [address] hepatitis C B17.10 [place] [address] [address] [place] Jul, [facility] [place] [address] [facility] [address] [facility] Jun, [place] [address] Alfonso Goetz [address] Jun, Anxiety F41.9 [facility] [place] [address] [place] [address] Jun, [facility] [place] [address] Case Management [address] Alfon[place] Go[place], [place] [address] [place] [address] [place] May, Encounter for general adult [facility] [place] [address] abnormal findings Z00.00 Case Management [address] [place]fon[place], [place] [address] Case Management [address] [place]fon[place], [place] [address] Alfon[place] Go[address] May, [facility] [place] [address] [place] [address] May, Hep C w/o coma, chronic [facility] [place] CRISTELA B18.2 [address] [place] [address] May, Hep C w/o coma, chronic [facility] [place] B18.2 [address] [address] [place] May, [facility] [place] [address] [place] [address] May, [facility] [place] [address] [place] [address] May, [facility] [place]ELA [address] [place] [address] [place] Apr, [facility] [place] [address] [facility] [address] [place] Apr, [facility] Dental B[place]nuCRISTELA [address] [place] [address] [place] Apr, Elevated BP without [facility] [place] diagnosis of hypertension R03.0 Facilitated Enrollment [address] Alfonso Apr, - [facility] [place] [address] [place] [address] [address] [place] Apr, Chronic viral hepatitis C [facility] [place] B18.2 ; Cryoglobulinemia D89.1 ; Nicotine dependence, cigarettes, uncomplicated F17.210 and Cocaine abuse in remission F14.10 Case Management [address] Alfonso [place]etz, Oct, [place] [address] [address] September, [facility] [place] [address] September, [facility] [place] [address] September, [facility] [place] [address] September, [facility] [address] September, [facility] [place] [address] Case Management [address] Alfon[place], September, [address] September, History of heroin abuse [facility] [place] Z87.898 and Cannabis dependence, abuse F12.[address] September, [facility] [place] [address] September, Excessive sweating R61 ; [facility] [place] Erectile dysfunction, unspecified erectile dysfunction type N52.9 ; Ejaculatory disorder N53.19 ; Sleep disorder G47.9 and Anxiety F41.9 Case Management [address] Alfon[place], September, [place] [address] Aug, [facility] Al[facility] Goetz [place]STELA [address] Aug, [facility] [place] [address] Case Management [address] Alfonso [place], Aug, [address] Aug, Routine general medical [facility] [place] examination [place] [address] care facility Z00.00 ; History of hepatitis C Z86.19 ; Nicotine dependence, cigarettes, uncomplicated F17.210 ; History of heroin abuse Z87.898 ; Cannabis dependence, abuse F12.20 ; Screening examination for sexually transmitted disease Z11.3 ; Special screening examination for other specified viral diseases Z11.59 ; Allergic rhinitis J30.9 ; Depression F32.9 and Skin disorder L98.[address] Aug, [place] [address] 14 Aug, 2016 Dizziness R42 ; BPH ( benign [place], [place] prostatic hypertrophy) with [address] urinary retention N40.0 and Tinnitus, bilateral H93.[address] Aug, [facility] [place] [address] Aug, [facility] [place] [address] Aug, [facility] [place] [address] Aug, [place] [address] Aug, [facility] [place] [address] Aug, History of hepatitis C [place], [place] Z86.19 ; Localized edema [address] R60.0 ; Chronic viral hepatitis C B18.2 and Cryoglobulinemia D89.1 Case Management [address] [place], [place] [address] Aug, History of hepatitis C [place] Z86.19 [address] Aug, [place] [address] Jul, Low back pain M54.5 ; [place] edema R60.0 and Dysuria [address] [address] Jul, BPH (benign prostatic [place], [place] hypertrophy) with urinary [address] retention N40.[address] Jul, Low back pain M54.5 ; [place] edema R60.0 ; BPH (benign [address] prostatic hypertrophy) with urinary retention N40.0 ; Acute hepatitis C B17.10 and Elevated liver enzymes R74.[address] Jun, Hepatitis C virus [place] infection, unspecified [address] chronicity B19.[address] May, [facility] [place] [address] [address] May, Routine general medical [facility] [place] examination at a [address] Z00.00 ; History of hepatitis C Z86.19 ; Nicotine dependence, cigarettes, uncomplicated F17.210 ; History of heroin abuse Z87.898 ; Cannabis dependence, abuse F12.20 ; Screening examination for sexually transmitted disease Z11.3 ; Special screening examination for other specified viral diseases Z11.59 ; Allergic rhinitis J30.9 ; Depression F32.9 and Skin disorder L98.9 Facilitated Enrollment UNKNOWN May, - [place] [address] Apr, Anxiety 300.00 [facility] [address] Mar, Stress headaches F45.41 [facility] [address] Mar, Dysuria R30.0 [facility] [address] Mar, [facility] [place] [address] [place] [address] Mar, [place] [address] [place] [address] Feb, [facility] [place] [address] Feb, [facility] [place] [address] Feb, Right ankle injury S99.911A [facility] [place] [address] Feb, [facility] [place] [address] [place] [address] Jan, Injury of right knee, leg [facility] [place] ankle and foot 959.7 and [address] Dysuria 7[address] Jan, [facility] [place] [address] [place] [address] Jan, Right ankle pain 719.47 [facility] [place] [address] Jan, [facility] [place] [address] 14 Jan, 2015 Right ankle pain 719.47 and [facility] [place] Cannabis abuse 305.20 [address] Jan, [place] [address] Jan, Elevated liver enzymes [facility] [place] 790.5 [address] Jan, Elevated liver function [facility] [place] tests 790.[address] [place] [address] Jan, Anxiety 300.00 ; History of [facility] [place] heroin abuse 305.53 ; COCAINE ABUSE-IN REMISS 305.63 ; History of hepatitis C V12.09 and Tobacco use disorder 305.[address] Dec, [facility] [place] [place] [address] Dec, [facility] [place] [address] Nov, Skin disorder 709.9 ; [facility] [place] History of heroin abuse 305.53 ; Low back pain 724.2 ; COCAINE ABUSE-IN REMISS 305.63 and Vomiting 787.[address] Nov, Anxiety 300.00 [facility] [place] [place] [address] Oct, [facility] [place] [place] [address] [facility] [address] [place], [place] [address] Oct, Degenerative disc disease , [facility] [place] lumbar 722.52 ; History of heroin abuse 305.53 ; COCAINE ABUSE-IN REMISS 305.63 ; Back pain 724.5 and Anxiety 300.[address] September, [facility] [place] [place] [address] Jul, [facility] [place] [place] [address] Jun, [facility] [place] [place] [address] Alfonso Goetz [address] May, [facility] Medical C[place]STELA [place] [address] [place] [facility] May, [facility] Dental Bishnu C[place]STELA [address] [facility] Apr, [facility] Dental CRISTELA [place] [address] Alfonso Goetz [address] Mar, [facility] [place] [address] Mar, Routine general medical [facility] [place] examination at a [address] [facility] V70.0 ; Low back pain 724.2 ; Anxiety disorder 300.00 ; History of hepatitis C V12.09 ; Need for influenza vaccination V04.81 and VACCIN FOR DISEASE NEC V05.[address] May, [place] [address] May, [place] [address] May, Low back pain 724.2 [place] [address] IMMUNIZATIONS No Known Immunizations SOCIAL HISTORY Never Assessed REASON FOR REFERRAL FUNCTIONAL STATUS PLAN OF CARE Activity Details Follow Up 1 Week Reason: VITAL SIGNS MEDICATIONS Medication Instructions Dosage Frequency Start End Duration Status Date Date JOSE Wrist Device daily Use on 24h Nov, 30 day(s) Not-Takin Brace/Splint - right 2018 g wrist Nicoderm CQ 21 Transdermal Once 1 patch to 24h 14 days Active MG/24HR a day skin PROCEDURES No Known procedures RESULTS No Results REASON FOR VISIT Insurance Providers [facility] Member Patient Patient Patient Patient Patient Subscriber Subscriber Subscriber Group Insurance Plan Plan Plan Plan ID Relationship Address Phone Name Date of ID Name Date of No Type Insurance Insurance Insurance Coverage to Subscriber Address Phone Name Dates Blue [phone] Blue self Ivan [id number] Choice Opt [id number] Choice Opt Col[place] [id number] [place] [id number] [place] [facility] [place] [facility] [address] Medicaid [phone] Medicaid self Ivan [id number] [place] 56 Wrap [place] [address] [facility] [phone] [facility] self Ivan [id number] M Family [place] 02 [place] [address] Planning Full Fee Full Fee Blue [phone] Blue self Ivan [id number] Choice Opt [id number] 89 Choice Opt Colf 6 Medical [place] Medical [address] Case [phone] Case self Ivan [id number] Management [place] 02 Management Colf [facility] [address] Community Medicaid [address] [phone] Medicaid self Ivan [id number] [facility] [address] [id number] MEDICAL (GENERAL) HISTORY Type Description Date Medical [...] incarcerated - 3 times- has been in [facility] -97 days is on parole Medical History is in [facility] - 04/05 Medical History 12/04/14ED visit for skin lesion Medical History 11/28/14 ED visit overdose synthetic THC Medical History 01/22/15 smoking THC Medical History February again -for 2weeks , [place] - hematuria while there Medical History 04/14/15 ED visit red spots on legs - atarax - dermatology referral Medical History released from skilled nursing 05/27/16 Medical History 06/29/16 dermatology consult guttate [...]
--- OUTSIDE RECORDS SUMMARY | 2019-04-02 11:01 | XMS REPORT ---
:1980 [facility] Address [address] [place] [address] Care Team Providers Name Role Phone Keely Rangel Unavailable Unavailable PROBLEMS Type Condition ICD9-CM [id number]-OT Onset Condition SNOMED Code Code Code Dates Status Problem Low back pain M54.5 Active 279554615 Problem History of hepatitis Z86.19 Active 123877711 C Problem Acute hepatitis C B17.10 Active 883517266 Problem Cocaine abuse in F14.10 Active 739941738 remission Problem Cryoglobulinemia D89.1 Active 611451679524379 Problem BPH (benign N40.0 Active 937885026 prostatic hypertrophy) with urinary retention Problem Tinnitus, bilateral H93.13 Active 7033412430792 Problem Chronic viral B18.2 Active 440309728 hepatitis C Problem Erectile N52.9 Active 636872469 dysfunction, unspecified erectile dysfunction type Problem Hep C w/o coma, B18.2 Active 287669805 chronic Problem Chronic pain after G89.29 Active 433633334 traumatic injury Problem 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 97886173 personality disorder Problem Sleep disorder G47.9 Active 15488622 Problem History of heroin Z87.898 Active 856354306300449 abuse Problem Mood disorder F39 Active 11831332 Problem Anxiety F41.9 Active 11253440 Problem Cannabis dependence, F12.20 Active 20709830 abuse Problem Nicotine dependence, F17.210 Active 14716504 cigarettes, uncomplicated Problem Pain, chronic due to G89.21 Active 309360555 trauma Problem Tinnitus of both H93.13 Active 7709758202630 ears Problem Environmental Z91.09 Active 853762368 allergies Problem Reactive depression F32.9 Active 61184631 (situational) ALLERGIES No Information ENCOUNTERS Encounter Location Date Diagnosis [address] Jan, [place] [address] Jan, Anxiety F41.9 [place] [address] [place] [address] Jan, [place] [address] [place] [address] Jan, Anxiety F41.9 [place] [address] [facility] [address] Dec, [place] [address] Dec, Anxiety F41.9 ; Mood [facility] [place] disorder F39 and Antisocial [address] personality disorder F60.[address] Dec, Anxiety F41.9 [place] [address] Dec, [facility] [place] [address] Dec, [facility] [place] [address] Dec, Mood disorder F39 and [facility] [place] Antisocial personality [address] disorder F60.2 [facility] [address] Nov, [place] [address] (situational) F32.[address] Nov, Right wrist pain M25.531 [facility] [place] and Environmental allergies [address] Z91.09 [facility] Nov, [facility] [place]STELA [place] [address] [place] [address] September, [place] [address] September, [facility] [place] [address] Jul, Herpes zoster without [facility] [place] complication B02.9 [address] [facility] [address] [facility] Jul, [place] [address] [facility] [address] [facility] Jul, Tinnitus of both ears [place] H93.13 [address] [place] [address] May, [facility] [place] [address] Alfonso Goetz [address] May, Encounter for general adult [facility] [place] [address] abnormal findings Z00.00 [facility] [address] Apr, [place] [address] [facility] [address] [facility] Feb, Chronic pain after [place] traumatic injury G89.29 [address] [facility] [address] [facility] Feb, [place] [address] [place] [address] [facility] Jan, [place] [address] Alfonso Goetz [address] [place] Jan, History of hepatitis C [facility] [place] Arnold Z86.19 [address] [place] [address] Jan, [facility] Bhavesh [place]etz [place] [address] Alfonso Goetz [address] [place] Dec, Bilateral edema of lower [facility] [place] extremity R60.0 [address] Alfonso Goetz [address] [place] Nov, Skin lesion of right arm [facility] Bhavesh SearsCRISTELA Arnold L98.9 [address] Alfonso Goetz [address] Nov, [facility] Alfonso [place] [address] Alfonso Go[place] [address] Nov, [facility] Alfonso Goetz [place] [address] [place] [address] [facility] Nov, [place] [address] [facility] [address] [place] [address] [place], [place] [address] [facility] [address] [facility] Oct, [place] [address] Alfonso Goetz [address] [place] Oct, [facility] [place], [place] [address] Alfonso Goetz [address] Oct, [facility] [place] [address] [facility] [address] [facility] Oct, [place] [address] Alfonso Goetz [address] [place] Oct, [facility] [place] [address] [facility] [address] [place] [address] Oct, [place] [address] Oct, Lower abdominal pain R10.30 Replaced By [facility] CRISTELA [place] ; Strain of lumbar [address] paraspinous muscle, initial encounter S39.012A and History of hepatitis C Z86.[address] Oct, History of hepatitis C Replaced By [facility] CRISTELA [place] Z86.19 [address] Oct, Right lower quadrant Replaced By [facility] CRISTELA [place] abdominal pain R10.31 ; [address] Anxiety F41.9 and Bone spur M77.9 [facility] [address] [facility] Oct, [place] [address] September, Replaced By [facility] [place] [address] [place] September, [place] [address] September, Replaced By [facility] [place] [address] [address] September, Abrasion of left cornea, Replaced By [facility] CRISTELA Ch[place] initial encounter S05.02XA [address] September, Replaced By [facility] [place] [address] Case Management [address] [place], [place] [address] Aug, Replaced By [facility] [place] [address] [address] Aug, Acute hepatitis C B17.10 Replaced By [facility] [place] [address] Aug, Acute hepatitis C B17.10 Replaced By [facility] CRISTELA [place] and Dizziness R42 [address] Aug, Replaced By [facility] [place] [address] Aug, Replaced By [facility] [place] [address] Aug, Anxiety F41.9 and Sleep Replaced By [facility] CRISTELA [place] disorder G47.9 [address] [address] [place] Aug, Replaced By [facility] [place] [address] [facility] [address] Jul, [place] [address] Alfonso Go[place] [address] [address] [place] Jul, [facility] [place] [address] Alfonso Goetz [address] [place] Jul, Acute hepatitis C B17.10 Replaced By [facility] Alfonso Goetz C[place]ST[place] [address] Alfonso Go[place] [address] [address] [place] Jul, [facility] Al[place]so Goetz [place] [address] Case Management [address] [place], [place] [address] Case Management [address] [place], [place] [address] Alfonso Goetz [place] [address] [address] [place] Jul, [facility] Alfonso Goetz [place] [address] [facility] Management [address] [place], [place] [address] Alfonso Goetz [place] [address] [address] [place] Jul, Anxiety F41.9 ; Sleep Replaced By [facility] [place] disorder G47.9 and Acute [address] hepatitis C B17.10 Alfonso Geotz [place] [address] [address] [place] Jul, Replaced By [facility] Alfonso Goetz C[place] [address] Jun, [place] [address] [place] [address] [address] [place] Jun, Anxiety F41.9 Replaced By [facility] Alfonso Goetz C[place] [address] Alfonso Goetz [address] [place] Jun, Replaced By [facility] Alfonso Goetz [place] [address] Case Management [address] [place]fonso [place], [place] [address] Alfonso Goetz [place] [address] [address] [place] May, Encounter for general adult Replaced By [facility] [place] w/o [address] abnormal findings Z00.00 Case Management [address] [place], [place] [address] Case Management [address] [place], [place] [address] Alfonso Goetz [place] [address] [address] [place] May, Replaced By [facility] Alfonso Goetz C[place]ST[place] [address] Alfonso Goetz [place] [address] [address] [place] May, Hep C w/o coma, chronic Replaced By [facility] [place] B18.2 [address] [place] [address] [address] [place] May, Hep C w/o coma, chronic [facility] [place] B18.2 [address] May, [facility] [address] May, [facility] [place] [address] May, [facility] [place] [address] Apr, [facility] [address] [place] [address] [place] Apr, [facility] [place] [address] Apr, Elevated BP without [place], [place] diagnosis of hypertension [address] [place] [address] R03.0 Facilitated Enrollment [address] [place] Apr, - [facility] [address] Apr, Chronic viral hepatitis C [facility] [place] B18.2 ; Cryoglobulinemia [address] D89.1 ; Nicotine dependence, cigarettes, uncomplicated F17.210 and Cocaine abuse in remission F14.10 [facility] [address] [place], Oct, [address] September, [facility] [address] September, [facility] [address] September, [facility] [address] September, [facility] [address] September, [facility] [address] Case Management [address] [place], September, [address] [place] September, History of heroin abuse [place] Z87.898 and Cannabis [address] dependence, abuse F12.20 [address] [place] September, [place] [address] [address] [place] September, Excessive sweating R61 ; [place] Erectile dysfunction, [address] unspecified erectile dysfunction type N52.9 ; Ejaculatory disorder N53.19 ; Sleep disorder G47.9 and Anxiety F41.9 [facility] [address] [place], September, [address] Aug, [facility], [place] [address] [place] [address] Aug, [facility] [place] [address] [facility] Management [address] [place], Aug, [address] Aug, Routine general medical [place] examination at a [address] Z00.00 ; History of hepatitis C Z86.19 ; Nicotine dependence, cigarettes, uncomplicated F17.210 ; History of heroin abuse Z87.898 ; Cannabis dependence, abuse F12.20 ; Screening examination for sexually transmitted disease Z11.3 ; Special screening examination for other specified viral diseases Z11.59 ; Allergic rhinitis J30.9 ; Depression F32.9 and Skin disorder L98.[address] Aug, [place] [address] Aug, Dizziness R42 ; BPH ( benign [place] prostatic hypertrophy) with [address] urinary retention N40.0 and Tinnitus, bilateral H93.[address] Aug, [facility] [place] [address] Aug, [place] [address] Aug, [place] [address] Aug, [place] [address] Aug, [place] [address] [place] [address] Aug, History of hepatitis C [place] Z86.19 ; Localized edema [address] R60.0 ; Chronic viral hepatitis C B18.2 and Cryoglobulinemia D89.1 Case Management [address] [place], Aug, [address] [place] [address] Aug, History of hepatitis [place] Z86.19 [address] [facility] [address] [place] Aug, [place] [address] Jul, Low back pain M54.5 ; [place] edema R60.0 and Dysuria [address] Jul, BPH (benign prostatic [facility] [place] hypertrophy) with urinary [address] retention N40.[address] Jul, Low back pain M54.5 ; [place] edema R60.0 ; BPH (benign [address] prostatic hypertrophy) with urinary retention N40.0 ; Acute hepatitis C B17.10 and Elevated liver enzymes R74.[address] Jun, Hepatitis C virus [place] infection, unspecified [address] [place] [address] chronicity B19.[address] May, [address] May, Routine general medical [place] examination [place] a [place] [address] care facility Z00.00 ; History of hepatitis C Z86.19 ; Nicotine dependence, cigarettes, uncomplicated F17.210 ; History of heroin abuse Z87.898 ; Cannabis dependence, abuse F12.20 ; Screening examination for sexually transmitted disease Z11.3 ; Special screening examination for other specified viral diseases Z11.59 ; Allergic rhinitis J30.9 ; Depression F32.9 and Skin disorder L98.9 Facilitated Enrollment UNKNOWN May, - [facility] [address] Apr, Anxiety 300.[address] Mar, Stress headaches F45.[address] Mar, Dysuria R30.[address] Mar, [address] Mar, Replaced By [facility] [place] [address] Alfonso Goetz [address] Feb, Replaced By [facility] [place] [address] Feb, Replaced By [facility] [place] [address] Alfonso Goetz [address] Feb, Right ankle injury S99.911A Replaced By [facility] [place] [address] Feb, Replaced By [facility] Alfonso [address] Jan, Injury of right knee, leg Replaced By [facility] [place] ankle and foot 959.7 and [address] Dysuria 788.[address] Jan, Replaced By [facility] CRISTELA Ch[place] [address] [place] [address] [address] Jan, Right ankle pain 719.47 Replaced By [facility] [place], [facility] Jan, Replaced By [facility] [place] [address]74 [address] Jan, Right ankle pain 719.47 and [facility] [place] Cannabis abuse 305.20 [address] Jan, Replaced By [facility] Alfonso Goetz [place] [address] Jan, Elevated liver enzymes Replaced By [facility] [place], [place] 790.5 [address] Jan, Elevated liver function Replaced By [facility] [place] MD tests 790.[address] [place] [address] Jan, Anxiety 300.00 ; History of [facility] [place] heroin abuse 305.53 ; [address] COCAINE ABUSE-IN REMISS 305.63 ; History of hepatitis C V12.09 and Tobacco use disorder 305.[address] Dec, Replaced By [facility] [place] [address] [place] [address] Dec, Replaced By [facility] [place] [address] Nov, Skin disorder 709.9 ; [facility] [place] History of heroin abuse [address] 305.53 ; Low back pain 724.2 ; COCAINE ABUSE-IN REMISS 305.63 and Vomiting 787.[address] Nov, Anxiety 300.00 Replaced By [facility] [place] [address] [place] [address] Oct, [facility] [place] [address] [facility] [address] [place], [place] [address] Oct, Degenerative disc disease , Replaced By [facility] [place] lumbar 722.52 ; [place] [address] heroin abuse 305.53 ; COCAINE ABUSE-IN REMISS 305.63 ; Back pain 724.5 and Anxiety 300.[address] September, Replaced By [facility] [place] [address] Jul, [facility] [place] [address] Jun, [facility] [place] [address] May, [facility] [place] [address] [facility] May, [facility] [address] [facility] Apr, [facility] [address] Mar, [facility] [place] [address] Mar, Routine general medical [place] examination [place] [address] care facility V70.0 ; Low back pain 724.2 ; Anxiety disorder 300.00 ; History of hepatitis C V12.09 ; Need for influenza vaccination V04.81 and VACCIN FOR DISEASE NEC V05.[address] May, [place] [address] May, [place] [address] [facility] [address] [place] [address] May, Low back pain 724.2 [place] [address] IMMUNIZATIONS No Known Immunizations SOCIAL HISTORY Never Assessed REASON FOR REFERRAL FUNCTIONAL STATUS PLAN OF CARE Activity Details Follow Up 1 Week Reason: VITAL SIGNS MEDICATIONS Medication Instructions Dosage Frequency Start Date End Date Duration Status JOSE Wrist Device daily Use on 24h Nov, 30 day(s) Active Brace/Splint - right wrist 2018 PROCEDURES Procedure Date Ordered Result Body Site Psychotherapy 16-37 Min Feb 01, 2019 RESULTS No Results REASON FOR VISIT Insurance Providers [facility] Member Patient Patient Patient Patient Patient Subscriber Subscriber Subscriber Group Insurance Plan Plan Plan Plan ID Relationship Address Phone Name Date of ID Name Date of No Type Insurance Insurance Insurance Coverage to Subscriber Address Phone Name Dates [facility] Slide [phone] [facility] Slide self Ivan [id number] M Family [place] 02 M Family Colf [facility] [address] Planning Full Fee Full Fee Medicaid [phone] Medicaid self Ivan [id number] Wrap [facility] [address] [address] Blue [phone] Blue self Ivan [id number] Choice Opt 9255 Attn 83 Choice Opt Colf GG457 [place] Claims [id number] [place] [facility] [place] [facility] [place] [facility] [address] Case [phone] Case self Ivan [id number] Management [place] 02 Management Colf [facility] [address] [facility] Blue [phone] Blue self Ivan [id number] Choice Opt [id number] Choice Opt Colf 6 Medical [facility] [address] Medicaid [phone] Medicaid self Ivan [id number] [facility] [address] [address] MEDICAL (GENERAL) HISTORY Type Description Date Medical [...] incarcerated - 3 times- has been in [facility] -97 days is on parole Medical History is in [facility] - 04/05 Medical History 12/04/14ED visit for skin lesion Medical History 11/28/14 ED visit overdose synthetic THC Medical History 01/22/15 smoking THC Medical History February Detox again -for 2weeks , [place] - hematuria while there Medical History 04/14/15 ED visit red spots on legs - atarax - dermatology referral Medical History released from snf 05/27/16 Medical History 06/29/16 dermatology consult guttate [...] leg and a Yonas put in 04/2018 Hospitalization History [facility] for drug abuse 02/2012 Hospitalization History S/P fall 30 feet off rook bilateral fractures of 2017 lower extemities
--- OUTSIDE RECORDS SUMMARY | 2019-04-02 11:01 | XMS REPORT ---
:1980 Author Organization [facility] Address [address] [place] [address] Care Team Providers Name Role Phone Keely Rangel Unavailable Unavailable PROBLEMS Type Condition ICD9-CM ULI70-TI Onset Condition SNOMED Code Code Code Dates Status Problem Low back pain M54.5 Active 151333481 Problem History of hepatitis Z86.19 Active 111536432 C Problem Acute hepatitis C B17.10 Active 334333848 Problem Cocaine abuse in F14.10 Active 914458475 remission Problem Cryoglobulinemia D89.1 Active 526419433297210 Problem BPH (benign N40.0 Active 127264808 prostatic hypertrophy) with urinary retention Problem Tinnitus, bilateral H93.13 Active 7638680461403 Problem Chronic viral B18.2 Active 918718927 hepatitis C Problem Erectile N52.9 Active 164910157 dysfunction, unspecified erectile dysfunction type Problem Hep C w/o coma, B18.2 Active 596323250 chronic Problem Chronic pain after G89.29 Active 317048087 traumatic injury Problem 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 73799152 personality disorder Problem Sleep disorder G47.9 Active 01709361 Problem History of heroin Z87.898 Active 697976044233454 abuse Problem Mood disorder F39 Active 06140576 Problem Anxiety F41.9 Active 08920177 Problem Cannabis dependence, F12.20 Active 03672511 abuse Problem Nicotine dependence, F17.210 Active 13264154 cigarettes, uncomplicated Problem Pain, chronic due to G89.21 Active 861025429 trauma Problem Tinnitus of both H93.13 Active 7443553199578 ears Problem Environmental Z91.09 Active 417703897 allergies Problem Reactive depression F32.9 Active 07770406 (situational) ALLERGIES No Information ENCOUNTERS Encounter Location Date Diagnosis [address] Feb, [place] [address] Feb, Anxiety F41.9 ; History of [place] heroin abuse Z87.898 ; [address] Cannabis dependence, abuse F12.20 and Cocaine abuse in remission F14.[address] Feb, Mood disorder F39 and [place] Antisocial personality [address] disorder F60.[address] Jan, Anxiety F41.9 and [place] Antisocial personality [address] disorder F60[address] Jan, Anxiety F41.9 [place] [address] Jan, [place] [address] Jan, Anxiety F41.9 [place] [address] Dec, [place] [address] Dec, Anxiety F41.9 ; Mood [place] disorder F39 and Antisocial [address] personality disorder F60.[address] Dec, Anxiety F41.9 [place] [address] Dec, [place] [address] Dec, [place] [address] Dec, Mood disorder F39 and [place] Antisocial personality [address] disorder F60.[address] Nov, [place] [address] (situational) F32.[address] Nov, Right wrist pain M25.531 [place] and Environmental allergies [address] Z91.09 [facility] Nov, [facility] [place] [address] [place] [address] September, [facility] [place] [address] [place] [address] September, [facility] [place] [address] [place] [address] Jul, Herpes zoster without [facility] Alfnoso Go[place] CRISTELA complication B02.9 [address] [place] [address] [facility] Jul, [place] [address] [facility] [address] [place] [address] Jul, Tinnitus of both ears [place] H93.13 [address] Alfonso Goetz [address] May, [facility] [place] [address] [place] [address] May, Encounter for general adult [facility] [place] [address] abnormal findings Z00.00 [facility] [address] [facility] Apr, [place] [address] Feb, Chronic pain after [place] traumatic injury G89.29 [address] [facility] [address] [place] [address] Feb, [place] [address] Jan, [place] [address] Alfonso Goetz [address] Jan, History of hepatitis C [facility] [place] Z86.19 [address] [place] [address] Jan, [facility] [place] [address] [place] [address] Dec, Bilateral edema of lower [facility] [place] extremity R60.0 [address] [place] [address] Nov, Skin lesion of right arm [facility] [place] L98.9 [address] [place] [address] Nov, [facility] [place] [address] Alfonso Goetz [address] Nov, [facility] [place] [address] [place] [address] [facility] Nov, [place] [address] [facility] [address] [place] [address] [place] [address] [facility] [address] [place] [address] Oct, [place] [address] Oct, Counts Include [facility] [place] [address] Oct, Counts Include [facility] [place] [address] [facility] Oct, [place] [address] [place] [address] Oct, Counts Include [facility] [place] [address] [facility] [address] [place] [address] Oct, [place] [address] Oct, Lower abdominal pain R10.30 Counts Include [facility] [place] ; Strain of lumbar [address] paraspinous muscle, initial encounter S39.012A and History of hepatitis C Z86.[address] Oct, History of hepatitis C Counts Include [facility] C[place]ST[place] Z86.19 [address] Oct, Right lower quadrant Counts Include [facility] C[place]STEL[place] abdominal pain R10.31 ; [address] Anxiety F41.9 and Bone spur M77.9 [facility] [address] [place] [address] Oct, [place] [address] September, Counts Include [facility] [place] [address] September, [place] [address] September, Counts Include [facility] [place] [address] September, Abrasion of left cornea, Counts Include [facility] CRISTELA Chacon initial encounter S05.02XA [address] [address] [place] September, Counts Include [facility] [place] [address] Case Management [address] Al[place] Go[place], [place] [address] Aug, Counts Include [facility] [place] [address] [address] [place] Aug, Acute hepatitis C B17.10 Counts Include [facility] [place] [address] [place] Aug, Acute hepatitis C B17.10 [facility] [place] and Dizziness R42 [address] Alfonso Goetz [address] [place] Aug, [facility] [place] [address] Alfonso Goetz [address] [place] Aug, [facility] [place] [address] Alfonso Goetz [address] [place] Aug, Anxiety F41.9 and Sleep [facility] [place] disorder G47.9 [address] Al[place]so Goetz [address] [place] Aug, [facility] [place] [address] [facility] [address] [facility] Jul, [place] [address] Al[place]so Go[place] [address] [address] [place] Jul, [facility] [place] [address] Alfonso Goetz [address] [place] Jul, Acute hepatitis C B17.10 [facility] Bhavesh Goetz [place] [address] Al[place]so Goetz [address] [place] Jul, [facility] [place] [address] Case Management [address] [place], [place] [address] Case Management [address] [place], [place] [address] Alfonso Goetz [address] [place] Jul, [facility] [place] [address] Case Management [address] [place] Go[place], [place] [address] Al[place] Goetz [address] [place] Jul, Anxiety F41.9 ; Sleep [facility] CRISTELA Tomas disorder G47.9 and Acute [address] hepatitis C B17.10 Alfonso Goetz [address] [place] Jul, [facility] Bhavesh Goetz [place] [address] Jun, [place] [address] [place] [address] [address] [place] Jun, Anxiety F41.9 [facility] Alfonso Goetz [place] [address] [place] [address] [place] Jun, [facility] [place] [address] Case Management [address] [place], [place] [address] [place] [address] [address] [place] May, Encounter for general adult [facility] [place] w/o [address] abnormal findings Z00.00 Case Management [address] [place], [place] [address] Case Management [address] [place], [place] [address] [place] [address] [address] [place] May, Counts Include [facility] [place] [address] [place] [address] [place] May, Hep C w/o coma, chronic Counts Include [address] [facility] [place] B18.2 [address] [place] [address] [place] May, Hep C w/o coma, chronic Counts Include [address] [facility] [place] B18.2 [address] [place] [address] [place] May, Counts Include [address] [facility] [place] [address] [address] [place] May, Counts Include [address] [facility] [address] [address] [place] May, Counts Include [address] [facility] [place] [address] [address] [place] Apr, Counts Include [address] [facility] [place] [address] [facility] [address] [place] Apr, [facility] [place] [address] [place] [address] [place] Apr, Elevated BP without [facility] [place] diagnosis of hypertension [address] R03.0 Facilitated Enrollment [address] [place] Apr, [facility] [place] [address] [address] [place] Apr, Chronic viral hepatitis C [facility] [place] B18.2 ; Cryoglobulinemia [address] D89.1 ; Nicotine dependence, cigarettes, uncomplicated F17.210 and Cocaine abuse in remission F14.10 Case Management [address] [place], [place] [address] [place] [address] [address] [place] September, Counts Include [facility] [place] [address] [place] [address] [address] [place] September, Counts Include [facility] [place] [address] [place] [address] [address] [place] September, Counts Include [facility] [place] [address] [place] [address] [address] [place] September, Counts Include [address] [facility] [place] [address] [place] [address] [address] [place] September, [facility] [place] [address] Case Management [address] Alfonso Geotz, September, [address] September, History of heroin abuse [facility] [place] Z87.898 and Cannabis dependence, abuse F12.[address] September, [facility] [place] [address] September, Excessive sweating R61 ; [facility] [place] Erectile dysfunction, unspecified erectile dysfunction type N52.9 ; Ejaculatory disorder N53.19 ; Sleep disorder G47.9 and Anxiety F41.9 Case Management [address] Alfonso Goetz, September, [address] Aug, Counts Include [facility] [place] [address] Aug, [facility] [place] Case Management [address] [place], Aug, [address] Aug, Routine general medical [facility] [place] examination [place] [address] care facility Z00.00 ; History of hepatitis C Z86.19 ; Nicotine dependence, cigarettes, uncomplicated F17.210 ; History of heroin abuse Z87.898 ; Cannabis dependence, abuse F12.20 ; Screening examination for sexually transmitted disease Z11.3 ; Special screening examination for other specified viral diseases Z11.59 ; Allergic rhinitis J30.9 ; Depression F32.9 and Skin disorder L98.[address] Aug, [place] [address] Aug, Dizziness R42 ; BPH ( benign [place] prostatic hypertrophy) with urinary retention N40.0 and Tinnitus, bilateral H93.[address] Aug, Counts Include [facility] [place] [address] [place] [address] Aug, [facility] [place] [address] Aug, [facility] [place] [address] Aug, [place] [address] Aug, [place] [address] Aug, History of hepatitis C [place] Z86.19 ; Localized edema [address] R60.0 ; Chronic viral hepatitis C B18.2 and Cryoglobulinemia D89.1 Case Management [address] [place], Aug, [address] Aug, History of hepatitis C [place] Z86.19 [address] Aug, [place] [address] Jul, Low back pain M54.5 ; [place] edema R60.0 and Dysuria [address] [address] Jul, BPH (benign prostatic [place] hypertrophy) with urinary [address] retention N40.[address] Jul, Low back pain M54.5 ; [place] edema R60.0 ; BPH (benign [address] prostatic hypertrophy) with urinary retention N40.0 ; Acute hepatitis C B17.10 and Elevated liver enzymes R74.[address] Jun, Hepatitis C virus [place] infection, unspecified chronicity B19.[address] May, [place] [address] May, Routine general medical [place] examination [place] [address] care facility Z00.00 ; History of hepatitis C Z86.19 ; Nicotine dependence, cigarettes, uncomplicated F17.210 ; History of heroin abuse Z87.898 ; Cannabis dependence, abuse F12.20 ; Screening examination for sexually transmitted disease Z11.3 ; Special screening examination for other specified viral diseases Z11.59 ; Allergic rhinitis J30.9 ; Depression F32.9 and Skin disorder L98.9 Facilitated Enrollment UNKNOWN May, - [place] [facility] Alfonso Goetz [address] Apr, Anxiety 300.00 [facility] [place] [address] Mar, Stress headaches F45.41 Counts Include [facility] [place] [address] [place] [address] Mar, Dysuria R30.0 Counts Include [address] [facility] [place] [address] Mar, Counts Include [facility] [place] [address] Mar, [facility] [place] [address] Feb, Counts Include [facility] [place] [address] Feb, Counts Include [address] [facility] [place] [address] Feb, Right ankle injury S99.911A Counts Include [address] [facility] [place] [address] Feb, Counts Include [address] [facility] [place] [address] Jan, Injury of right knee, leg [facility] [place] ankle and foot 959.7 and [address] Dysuria [address] Jan, Counts Include [facility] [place] [address] Jan, Right ankle pain 719.47 Counts Include [address] [facility] [address] Jan, [facility] [place] [address] Jan, Right ankle pain 719.47 and [facility] [place] Cannabis abuse 305.20 [address] Jan, Counts Include [facility] [place] [address] Jan, Elevated liver enzymes Counts Include [address] [facility] CRISTELA Chacon 790.5 [address] Jan, Elevated liver function Counts Include [facility] CRISTELA [place] tests 790.6 [address] Jan, Anxiety 300.00 ; History of [facility] [place] heroin abuse 305.53 ; COCAINE ABUSE-IN REMISS 305.63 ; History of hepatitis C V12.09 and Tobacco use disorder 305.[address] Dec, Counts Include [facility] [place] [address] Dec, [facility] [place] [address] Nov, Skin disorder 709.9 ; [facility] [place] History of heroin abuse 305.53 ; Low back pain 724.2 ; COCAINE ABUSE-IN [place] 305.63 and Vomiting 787.[address] Nov, Anxiety 300.00 Counts Include [facility] [place] [address] [address] Oct, Counts Include [facility] [place] [address] [place] [address] [place], [place] [address] Oct, Degenerative disc disease , Counts Include [facility] Alfon[place] lumbar 722.52 ; History of heroin abuse 305.53 ; COCAINE ABUSE-IN [place] 305.63 ; Back pain 724.5 and Anxiety 300.[address] September, Counts Include [facility] [place] [address] Jul, Counts Include [facility] [place]STEL[place] [address] [address] Jun, Counts Include [facility] [place]ST[place] [address] May, Counts Include [address] [facility] [place]STELA [place] [address] [facility] [address] [place] May, [facility] [place]ELA [place] [address] [facility] [address] [place] Apr, [facility] C[place]STELA [place] [address] Mar, Counts Include [facility] [place] [address] Mar, Routine general medical Counts Include [facility] CRISTELA [place] examination at [address] [place] [address] facility V70.0 ; Low back pain 724.2 ; Anxiety disorder 300.00 ; History of hepatitis C V12.09 ; Need for influenza vaccination V04.81 and VACCIN FOR DISEASE NEC V05.8 [facility] [address] [place] [address] May, [place] [address] [facility] [address] [place] [address] May, [place] [address] [facility] [address] [place] [address] May, Low back pain 724.2 [place] [address] IMMUNIZATIONS No Known Immunizations SOCIAL HISTORY Never Assessed REASON FOR REFERRAL FUNCTIONAL STATUS PLAN OF CARE Activity Details Follow Up 2 Weeks Reason: VITAL SIGNS MEDICATIONS Medication Instructions Dosage Frequency Start Date End Date Duration Status JOSE Wrist Device daily Use on 24h Nov, 30 day(s) Active Brace/Splint - right wrist 2019 PROCEDURES No Known procedures RESULTS No Results REASON FOR VISIT Insurance Providers [facility] Member Patient Patient Patient Patient Patient Subscriber Subscriber Subscriber Group Insurance Plan Plan Plan Plan ID Relationship Address Phone Name Date of ID Name Date of No Type Insurance Insurance Insurance Coverage to Subscriber Address Phone Name Dates Medicaid [id number] Medicaid self Ivan [id number] [facility] [address] [place] [id number] Medicaid [id number] Medicaid self Ivan [id number] [facility] [address] [address] Case [phone] Case self Ivan [id number] Management [place] [address] [facility] Slide [phone] [facility] Slide self Ivan [id number] M Family [place] 02 M Family Colf [place] [address] Planning Full Fee Full Fee Blue [phone] Blue self Ivan [id number] Choice Opt [id number] Choice Opt [place] [address] [place] [address] Blue [phone] Blue self Ivan [id number] Choice Opt 9255 Attn 83 Choice Opt Colf [id number] [place] Claims [id number] [place] [facility] [place] [facility] [place] [facility] [address] MEDICAL (GENERAL) HISTORY Type Description Date Surgical History Left ankle ORIF, Right fibula [...]
--- OUTSIDE RECORDS SUMMARY | 2019-04-02 11:01 | XMS REPORT ---
:1980 Author Organization [facility] Medical Address [address] [place] [address] Care Team Providers Name Role Phone Diana Grimes Unavailable Unavailable PROBLEMS Type Condition ICD9-CM [id number] Onset Condition SNOMED Code Code Code Dates Status Problem Low back pain M54.5 Active 253696975 Problem History of hepatitis Z86.19 Active 071067935 C Problem Acute hepatitis C B17.10 Active 543853965 Problem Cocaine abuse in F14.10 Active 627205129 remission Problem Cryoglobulinemia D89.1 Active 246754913553961 Problem BPH (benign N40.0 Active 302222094 prostatic hypertrophy) with urinary retention Problem Tinnitus, bilateral H93.13 Active 6832245838768 Problem Chronic viral B18.2 Active 737271824 hepatitis C Problem Erectile N52.9 Active 812868882 dysfunction, unspecified erectile dysfunction type Problem Hep C w/o coma, B18.2 Active 636307786 chronic Problem Chronic pain after G89.29 Active 620871439 traumatic injury Problem 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 91392576 personality disorder Problem Sleep disorder G47.9 Active 69133508 Problem History of heroin Z87.898 Active 025763745200864 abuse Problem Mood disorder F39 Active 78956912 Problem Anxiety F41.9 Active 53628863 Problem Cannabis dependence, F12.20 Active 65957054 abuse Problem Nicotine dependence, F17.210 Active 51601937 cigarettes, uncomplicated Problem Pain, chronic due to G89.21 Active 523787338 trauma Problem Tinnitus of both H93.13 Active 9652706342578 ears Problem Environmental Z91.09 Active 961185267 allergies Problem Reactive depression F32.9 Active 59782784 (situational) ALLERGIES No Information ENCOUNTERS Encounter Location Date Diagnosis [address] Feb, [place] [address] Feb, [place] [address] Feb, Anxiety F41.9 ; History of [place] heroin abuse Z87.898 ; [address] Cannabis dependence, abuse F12.20 and Cocaine abuse in remission F14.[address] Feb, Mood disorder F39 and [place] Antisocial personality [address] disorder F60.2 [address] [place] Jan, Anxiety F41.9 and [place] Antisocial personality [address] disorder F60.[address] Jan, Anxiety F41.9 [place] [address] Jan, [place] [address] [address] [place] Jan, Anxiety F41.9 [place] [address] Dec, [place] [address] Dec, Anxiety F41.9 ; Mood [place] disorder F39 and Antisocial [address] personality disorder F60.[address] Dec, Anxiety F41.9 [place] [address] Dec, [place] [address] Dec, [place] [address] [address] [place] Dec, Mood disorder F39 and [place] Antisocial personality [address] disorder F60.2 [place] [id number] [facility] Nov, [place] [address] (situational) F32.9 [address] [place] Nov, Right wrist pain M25.531 [place] and Environmental allergies [address] Z91.09 [facility] 160 [facility] Nov, [facility] [place] [address] [place] [address] September, [facility] [place] [address] [place] [address] September, [facility] [place] [address] [place] [address] Jul, Herpes zoster without [facility] [place] complication B02.9 [address] Jul, [place] [address] [facility] [address] [place] [address] Jul, Tinnitus of both ears [place] H93.13 [address] [place] [address] May, [facility] [place] [address] [place] [address] May, Encounter for general adult [facility] [place] medical [place] w/[place] [address] abnormal findings Z00.00 [facility] [address] [facility] Apr, [place] [address] [facility] [address] [place] [address] Feb, Chronic pain after [place], [place] traumatic injury G89.29 [address] [facility] [address] [place] [address] Feb, [place] [address] Jan, [place] [address] [place] [address] Jan, History of hepatitis C [facility] CRISTELA Chacon Z86.19 [address] [place] Go[place] [address] Jan, [facility] [place] [address] [place] [address] Dec, Bilateral edema of lower [facility] [place]STELA [place] extremity R60.0 [address] [place] [address] Nov, Skin lesion of right arm [facility] CRISTELA [place]acon L98.9 [address] [place] [address] Nov, [facility] [place] [address] [place] Go[place] [address] Nov, [facility] [place] [address] [place] [address]2533 [facility] Nov, [place] [address] Oct, [place] [address] Oct, [place] [address] [place] Oct, [facility] [place] [address] [place] [address] Oct, [facility] [place] [address] Oct, [place] [address] [place] Oct, [facility] [place] [address] Oct, [place] [address] Oct, Lower abdominal pain R10.30 [facility] C[place]STELA [place] ; Strain of lumbar [address] paraspinous muscle, initial encounter S39.012A and History of hepatitis C Z86.[address] [place] Oct, History of hepatitis C [facility] CRISTELA Chacon Z86.19 [address] [place] Oct, Right lower quadrant [facility] CRISTELA Chacon abdominal pain R10.31 ; [address] Anxiety F41.9 and Bone spur M77.[address] Oct, [place] [address] [place] [address] [place] September, [facility] [place] [address] [facility] 60 [facility] September, [place] [address] [place] September, [facility] [place] [address] [place] [place] September, Abrasion of left cornea, [facility] CRISTELA Chacon initial encounter S05.02XA [address] [place] [place] September, [facility] [place] [address] [facility] [address] [place], [place] [address] [place] [address] [address] [place] Aug, [facility] [place] [address] [address] [place] Aug, Acute hepatitis C B17.10 [facility] [place] [address] [place] [address] [place] Aug, Acute hepatitis C B17.10 [facility] [place] and Dizziness R42 [address] [place] Go[place] [address] [place] Aug, [facility] [place] [address] [place] [address] [place] Aug, [facility] [place] [address] [place] [address] [place] Aug, Anxiety F41.9 and Sleep [facility] [place]STELA [place] disorder G47.9 [address] [place] [address] [employer] [place] Aug, [facility] [place] [address] [facility] [address] [place] [address] Jul, [place] [address] [place] [address] [place] Jul, [facility] [place] [address] [place] [address] [place] Jul, Acute hepatitis C B17.10 [facility] [place] [address] [place] [address] [place] Jul, [facility] [place] [address] [facility] [address] [place], [place] [address] [facility] [address] [place], [place] [address] [place] [address] [place] Jul, [facility] [place] [address] [facility] [address] [place], 15 Jul, 2017 [place] [address] [place] [address] [employer] [place] Jul, Anxiety F41.9 ; Sleep [facility] [place]STELA [place] disorder G47.9 and Acute [address] hepatitis C B17.10 [place] [address] [place] Jul, [facility] Alfonso Goetz C[place]STELA [address] [facility] [address] [facility] Jun, [place] [address] [place] [address] [employer] [place] Jun, Anxiety F41.9 [facility] [place] [address] Al[place] Go[place] [address] [employer] [place] Jun, [facility] [place]A [address] [facility] [address] [place], [place] [address] [place] [address] May, Encounter for general adult [facility] [place] [address] abnormal findings Z00.00 [facility] [address] [place], [place] [address] [facility] [address] [place], [place] [address] [place] [address] [place] May, [facility] [place] [address] [place] [address] [place] May, Hep C w/o coma, chronic [facility] CRISTELA [place] B18.2 [address] [place] [address] [place] May, Hep C w/o coma, chronic [facility] CRISTELA [place]acon B18.2 [address] [place] [address] May, [facility] [place] [address] [place] [address] [place] May, [facility] [place] [address] [place] [place] May, [facility] [place] [address] [place] [address] [place] Apr, [facility] [place] [address] [place] [facility] [address] [place] Apr, [facility] [place] [address] [place] [address] [place] Apr, Elevated BP without [facility] CRISTELA Chacon diagnosis of hypertension [address] R03.0 Facilitated Enrollment [address] [place] Apr, - Alfonso Goetz [facility] [place] [address] [place] [place] Apr, Chronic viral hepatitis C [facility] CRISTELA Chacon B18.2 ; Cryoglobulinemia [address] D89.1 ; Nicotine dependence, cigarettes, uncomplicated F17.210 and Cocaine abuse in remission F14.10 [facility] [address] [place], [place] [address] [place] [address] [place] September, [facility] [place] [address] [place] [address] [place] September, [facility] [place] [address] [place] [address] [place] September, [facility] [place] [address] [place] [address] [address] [place] September, [facility] [place] [address] September, [facility] [place] [facility] Management [address] [place], September, [address] September, History of heroin abuse [facility] [place] Z87.898 and Cannabis dependence, abuse F12.[address] September, [facility] [address] September, Excessive sweating R61 ; [facility] [place] Erectile dysfunction, unspecified erectile dysfunction type N52.9 ; Ejaculatory disorder N53.19 ; Sleep disorder G47.9 and Anxiety F41.9 [facility] [address] [place], September, [address] Aug, [facility] [place] [address] Aug, [facility] [place] [facility] [address] [place], Aug, [address] Aug, Routine general medical [facility] [place] examination at a [place] [address] care facility Z00.00 ; History of hepatitis C Z86.19 ; Nicotine dependence, cigarettes, uncomplicated F17.210 ; History of heroin abuse Z87.898 ; Cannabis dependence, abuse F12.20 ; Screening examination for sexually transmitted disease Z11.3 ; Special screening examination for other specified viral diseases Z11.59 ; Allergic rhinitis J30.9 ; Depression F32.9 and Skin disorder L98.[address] Aug, [place] [address] Aug, Dizziness R42 ; BPH ( benign [place] prostatic hypertrophy) with urinary retention N40.0 and Tinnitus, bilateral H93.[address] Aug, [facility] [place] [address] Aug, [facility] [place] [address] Aug, [place] [address] Aug, [place] [address] Aug, [place] [address] Aug, History of hepatitis C [place] Z86.19 ; Localized edema [address] R60.0 ; Chronic viral hepatitis C B18.2 and Cryoglobulinemia D89.1 [facility] [address] [place], Aug, [address] Aug, History of hepatitis C [place] Z86.19 [address] Aug, [place] [address] Jul, Low back pain M54.5 ; [place] edema R60.0 and Dysuria [address] Jul, BPH (benign prostatic [place] hypertrophy) with urinary [address] retention N40[address] Jul, Low back pain M54.5 ; [place] edema R60.0 ; BPH (benign [address] prostatic hypertrophy) with urinary retention N40.0 ; Acute hepatitis C B17.10 and Elevated liver enzymes R74.[address] Jun, Hepatitis C virus [place] infection, unspecified [address] chronicity B19.[address] May, [place] [address] [place] [address] May, Routine general medical [place] examination at a [place] [address] care facility Z00.00 ; History of hepatitis C Z86.19 ; Nicotine dependence, cigarettes, uncomplicated F17.210 ; History of heroin abuse Z87.898 ; Cannabis dependence, abuse F12.20 ; Screening examination for sexually transmitted disease Z11.3 ; Special screening examination for other specified viral diseases Z11.59 ; Allergic rhinitis J30.9 ; Depression F32.9 and Skin disorder L98.9 Facilitated Enrollment UNKNOWN May, - [place] [facility] [address] Apr, Anxiety 300.00 [facility] [place] [address] [place] [address] Mar, Stress headaches F45.41 [facility] [place] [address] Mar, Dysuria R30.0 [facility] [place] [address] Mar, [facility] [place] [address] Mar, [facility] [place] [address] Feb, [facility] [place] [address] Feb, [facility] [place] [address] Feb, Right ankle injury S99.911A [facility] [place] [address] Feb, [place] [address] Jan, Injury of right knee, leg [facility] [place] ankle and foot 959.7 and [address] Dysuria 788.[address] Jan, [facility] [place] [address] Jan, Right ankle pain 719.47 [facility] [place] [address] Jan, [place] [address] [address] [place] Jan, Right ankle pain 719.47 and [facility] [place] Cannabis abuse 305.20 [address] Jan, [facility] [place] [address] [address] [place] Jan, Elevated liver enzymes [facility] [place] 790.5 [address] Jan, Elevated liver function [facility] CRISTELA Chacon tests 790.[address] [place] Jan, Anxiety 300.00 ; History of [facility] CRISTELA Chacon heroin abuse 305.53 ; COCAINE ABUSE-IN REMISS 305.63 ; History of hepatitis C V12.09 and Tobacco use disorder 305.[address] Dec, [facility] [place] [address] Dec, [facility] [place] [address] [place] Nov, Skin disorder 709.9 ; [facility] CRISTELA Chacon History of heroin abuse 305.53 ; Low back pain 724.2 ; COCAINE ABUSE-IN REMISS 305.63 and Vomiting 787.[address] [place] [address] Nov, Anxiety 300.00 [facility] [place] [address] [place] Oct, [facility] [place] [address] [facility] [address] [place], [place] [address] [place] [address] Oct, Degenerative disc disease , [facility] CRISTELA Chacon lumbar 722.52 ; History of heroin abuse 305.53 ; COCAINE ABUSE-IN REMISS 305.63 ; Back pain 724.5 and Anxiety 300.[address] [place] [address] September, [facility] [place] [address] [place] [address] Jul, [facility] [place] [address] [place] [address] Jun, [facility] [place] [address] [place] [address] May, [facility] [place] [address] [facility] [address] [place] May, [facility] [place] [address] [place] [facility] [address] [place] Apr, [facility] [place] [address] [place] Mar, [facility] [place] [address] Mar, Routine general medical [facility] [place] examination at a [facility] [address] care facility V70.0 ; Low back pain 724.2 ; Anxiety disorder 300.00 ; History of hepatitis C V12.09 ; Need for influenza vaccination V04.81 and VACCIN FOR DISEASE NEC V05.8 [facility] [address] [facility] May, [place] [address] [facility] [address] [place] [address] May, [place] [address] [facility] [address] [place] [address] May, Low back pain 724.2 [place] [address] IMMUNIZATIONS No Known Immunizations SOCIAL HISTORY Never Assessed REASON FOR REFERRAL FUNCTIONAL STATUS PLAN OF CARE Activity Details Follow Up prn Reason: Pending Test VITAMIN D, 1,25 DIHYDROXY Pending Test TSH W/REFLEX TO FT4 Pending Test VITAMIN B12/FOLATE, SERUM PANEL Pending Test CBC (INCLUDES DIFF/PLT) Pending Test COMPREHENSIVE METABOLIC PANEL VITAL SIGNS Temperature 97.6 degrees Fahrenheit 2019-02-22 Heart Rate 16 2019-02-22 Weight 182.4 2019-02-22 Height 72.0 in 2019-02-22 BMI 24.74 kg/m2 2019-02-22 Oximetry 98 % 2019-02-22 Blood pressure systolic 104 mm Hg 2019-02-22 Blood pressure diastolic 54 mm Hg 2019-02-22 MEDICATIONS Medication Instructions Dosage Frequency Start End Date Duration Status Date JOSE Wrist Device daily Use on 24h Nov, 30 day(s) Not-Taking Brace/Splint - right 2019 wrist PROCEDURES Procedure Date Ordered Result Body Site Drug screen, any number of drug classes from Drug Class Feb 22, 2019 List A; any number of non-TLC devices or procedures, VENIPUNCT, ROUTINE* venous blood collection Feb 22, 2019 Brief emotional/behavioral assessment Feb 22, 2019 BODY MASS INDEX DOCD Feb 22, 2019 SMOKING + 2ND HAND ASSESSED Feb 22, 2019 Oxygen saturation results documented and reviewed Feb 22, 2019 BLOOD PRESSURE, MEASURED Feb 22, 2019 RESULTS Name Result Date Reference Range - Blood Draw Venipuncture 2019-02-22 -Urine - Qualitative Drug Screen 2019-02-22 mAMP Neg TISHA Neg THC Positive AMP Neg OPI Neg OXY Neg PPX Neg BZO Neg BAR Neg MDMA Neg REASON FOR VISIT anxiety, PVP: [id number], smoking- KA Insurance Providers [facility] Patient Patient Patient Patient Patient Subscriber Subscriber Subscriber Group Insurance Plan Plan Plan Plan ID Relationship Address Phone Name Date of ID Name Date of No Type Insurance Insurance Insurance Coverage to Subscriber Address Phone Name Dates Blue [address] Blue self Ivan [id number] Choice Opt [id number] Choice Opt [place] [address] [place] Medical [address] [id number] Medicaid self Ivan [id number] Wrap [facility] [address] [place] [address] Blue [address] Blue self Ivan [id number] Choice Opt [address] 83 Choice Opt [place] [id number] [place] [id number] [place] [facility] [facility] [place] [facility] [address] Medicaid [id number] Medicaid self Ivan [id number] [facility] [address] [address] [facility] [phone] [facility] [employer] self Ivan [id number] M Family [place] 02 [place] [address] Planning Full Fee Full Fee Case [phone] Case self Ivan [id number] Management [place] 02 Management Colf [facility] [address] [facility] MEDICAL (GENERAL) HISTORY Type Description Date [...] incarcerated - 3 times- has been in [facility] -97 days is on parole Medical History is in [facility] - 04/05 Medical History 12/04/14ED visit for skin lesion Medical History 11/28/14 ED visit overdose synthetic THC Medical History 01/22/15 smoking THC Medical History February Detox again -for 2weeks , [place] - hematuria while there Medical History 04/14/15 ED visit red spots on legs - atarax - dermatology referral Medical History released from correction 05/27/16 Medical History 06/29/16 dermatology consult guttate [...]
--- OUTSIDE RECORDS SUMMARY | 2019-04-02 11:01 | XMS REPORT ---
:1980 Author Organization [facility] Medical Address [address] [place] [address] Care Team Providers Name Role Phone Diana Grimes Unavailable Unavailable PROBLEMS Type Condition ICD9-CM [id number] Onset Condition SNOMED Code Code Code Dates Status Problem Low back pain M54.5 Active 341134768 Problem History of hepatitis Z86.19 Active 636637968 C Problem Acute hepatitis C B17.10 Active 216094125 Problem Cocaine abuse in F14.10 Active 787358611 remission Problem Cryoglobulinemia D89.1 Active 160787456936805 Problem BPH (benign N40.0 Active 388306134 prostatic hypertrophy) with urinary retention Problem Tinnitus, bilateral H93.13 Active 1042236552665 Problem Chronic viral B18.2 Active 690039110 hepatitis C Problem Erectile N52.9 Active 848576142 dysfunction, unspecified erectile dysfunction type Problem Hep C w/o coma, B18.2 Active 836052635 chronic Problem Chronic pain after G89.29 Active 239447954 traumatic injury Problem 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 92276877 personality disorder Problem Sleep disorder G47.9 Active 38259480 Problem History of heroin Z87.898 Active 798410668814404 abuse Problem Mood disorder F39 Active 65931005 Problem Anxiety F41.9 Active 27966284 Problem Cannabis dependence, F12.20 Active 64482660 abuse Problem Nicotine dependence, F17.210 Active 73035571 cigarettes, uncomplicated Problem Pain, chronic due to G89.21 Active 818512226 trauma Problem Tinnitus of both H93.13 Active 5709722282325 ears Problem Environmental Z91.09 Active 089957846 allergies Problem Reactive depression F32.9 Active 09945364 (situational) ALLERGIES No Information ENCOUNTERS Encounter Location Date Diagnosis [address] Feb, [place] [address] Feb, [place] [address] Feb, [place] [address] Feb, Anxiety F41.9 ; History of [place] heroin abuse Z87.898 ; [address] Cannabis dependence, abuse F12.20 and Cocaine abuse in remission F14.[address] Feb, Mood disorder F39 and [place] Antisocial personality [address] disorder [address] Jan, Anxiety F41.9 and [place] Antisocial personality [address] disorder F60.2 [address] [place] Jan, Anxiety F41.9 [place] [address] [address] [place] Jan, [place] [address] [address] [place] Jan, Anxiety F41.9 [place] [address] Dec, [place] [address] Dec, Anxiety F41.9 ; Mood [place] disorder F39 and Antisocial [address] personality disorder F60.[address] Dec, Anxiety F41.9 [place] [address] Dec, [place] [address] [address] [place] Dec, [place] [address] [address] [place] Dec, Mood disorder F39 and [place] Antisocial personality [address] disorder F60.[address] Nov, [place] [address] (situational) F32.9 [address] [place] Nov, Right wrist pain M25.531 Health [facility] CRISTELA Chacon and Environmental allergies [address] Z91.09 [facility] [address] [facility] Nov, [facility] [place]STELA [place] [address] [place] [address] September, [facility] [place]A [place]acon [address] [place] [address] September, [facility] [place] [address] [place] [address] Jul, Herpes zoster without [facility] CRISTELA Chacon complication B02.9 [address] [facility] [address] [facility] Jul, [place] [address] [facility]ly [facility] [address] [facility] Jul, Tinnitus of both ears [place] H93.13 [address] [place] [address] May, Encounter for general adult [facility] C[place]STELA [place]acon medical [place] [address] abnormal findings Z00.[address] [place] [address] May, [facility] C[place]STELA [place] [address] [facility] [address] [facility] Apr, [place] [address] [facility] [address] [facility] Feb, Chronic pain after [place] traumatic injury G89.29 [address] [facility] [address] [facility] Feb, [place] [address] [facility] [address] [facility] Jan, [place] [address] [place] [address] Jan, History of hepatitis C [facility] CRISTELA Chacon Z86.19 [address] [place] [address] Jan, [facility] [place] [address] [place] Go[place] [address] Dec, Bilateral edema of lower [facility] CRISTELA Chacon extremity R60.0 [address] [place] Go[place] [address] Nov, Skin lesion of right arm [facility] CRISTELA Chacon L98.9 [address] [place] Go[place] [address] Nov, [facility] [place] [address] [place] [address] Nov, [facility] [place]STELA [place]acon [address] Nov, [place] [address] Oct, [place] [address] Oct, [place] [address] [place] Oct, [facility] CRISTELA [place]acon [address] [place] Oct, [facility] C[place]STELA [place] [address] [address] Oct, [place] [address] [place] Oct, [facility] C[place]STELA [place] [address] Oct, [place] [address] [place] Oct, Lower abdominal pain R10.30 [facility] CRISTELA [place]acon ; Strain of lumbar [address] paraspinous muscle, initial encounter S39.012A and History of hepatitis C Z86.[address] [place] Oct, History of hepatitis C [facility] CRISTELA Chacon Z86.19 [address] [place] Oct, Right lower quadrant [facility] CRISTELA Chacon abdominal pain R10.31 ; [address] Anxiety F41.9 and Bone spur M77.[address] Oct, [place] [address] [facility] [address] [place] September, [facility] C[place]STELA [place]acon [address] [facility] [address] [facility] September, [place] [address] [place] [place] September, [facility] [place] [address] [place] [place] September, Abrasion of left cornea, [facility] CRISTELA Chacon initial encounter S05.02XA [address] [place] [place] September, [facility] C[place]STELA [place]acon [address] Case Management [address] [place], [place] [address] [place] [place] Aug, [facility] [place] [address] [place] [address] [place] Aug, Acute hepatitis C B17.10 [facility] [place]ELA [place] [address] [facility] [facility] [address] [place] Aug, [facility] [place] [address] [facility] [facility] [address] [place] Aug, Acute hepatitis C B17.10 [facility] CRISTELA and Dizziness R42 [address] [facility] [facility] [address] [place] Aug, [facility] [place]STELA [place] [address] [place] [address] [employer] [place] Aug, Anxiety F41.9 and Sleep [facility] CRISTELA Chacon disorder G47.9 [address] [place] [address] [employer] [place] Aug, [facility] C[place]STELA Chacon [address] [facility] [address] [place] [address] Jul, [place] [address] [place] Go[place] [address] [employer] [place] Jul, [facility] C[place]STELA [place] [address] [place] [facility] [address] [place] Jul, Acute hepatitis C B17.10 Health [facility] [place]A [place] [address] [place] [facility] [address] [place] Jul, [facility] C[place]STELA [place] [address] Case Management [address] [place], [place] [address] Case Management [address] [place] [address] [place] [address] [place] Jul, [facility] CRISTELA Tomas [address] Case Management [address] [place], [place] [address] Al[place] Go[place] [address] [employer] [place] Jul, Anxiety F41.9 ; Sleep [facility] CRISTELA Chacon disorder G47.9 and Acute [address] hepatitis C B17.10 [place] Go[place] [address] [employer] [place] Jul, [facility] [place] CRISTELA [address] [facility] [address] [facility] Jun, [place] [address] [place] [address] [employer] [place] Jun, Anxiety F41.9 [facility] [place] CRISTELA [address] [place] [address] [employer] [place] Jun, [facility] [place] [address] Case Management [address] Al[place] Go[place], [place] [address] [address] [place] May, Encounter for general adult [facility] [place]STELA [place] w/[place] [address] abnormal findings Z00.00 Case Management [address] Alfon[place] Go[place], [place] [address] Case Management [address] [place]fon[place] Go[place], [place] [address] [place] [place] May, [facility] [place] [address] [place] [address] [place] May, Hep C w/o coma, chronic [facility] [place] B18.2 [address] [address] [place] May, Hep C w/o coma, chronic [facility] [place] B18.2 [address] [place] [address] [place] May, [facility] [place] [address] [address] [place] May, [facility] [place] [address] [address] [place] May, [facility] [place] [address] [address] [place] Apr, [facility] [place] [address] [facility] [address] [place] Apr, [facility] Bishnu C[place]STEL[place] [address] [address] [place] Apr, Elevated BP without [facility] [place] diagnosis of hypertension [address] R03.0 Facilitated Enrollment [address] [place] Apr, - [place], [place] [address] [place], [place] [address]ball [place] Apr, Chronic viral hepatitis C [facility] [place] B18.2 ; Cryoglobulinemia [address] D89.1 ; Nicotine dependence, cigarettes, uncomplicated F17.210 and Cocaine abuse in remission F14.10 Case Management [address] [place], [place] [address] [place] [place] September, [facility] CRISTELA [place] [address] [address] [place] September, [facility] Department[facility] Arnold [address] [place] [address] [employer] [place] September, [facility] [place] [address] September, [facility] [place] [address] September, [facility] [place] Case Management [address] Alfon[place] Go[place], September, [address] September, History of heroin abuse [facility] [place] Z87.898 and Cannabis dependence, abuse F12.[address] September, [facility] [place] [address] September, Excessive sweating R61 ; [facility] [place] Erectile dysfunction, unspecified erectile dysfunction type N52.9 ; Ejaculatory disorder N53.19 ; Sleep disorder G47.9 and Anxiety F41.9 Case Management [address] [place], September, [address] Aug, [facility] [place] [address] Aug, [facility] [place] Case Management [address] [place], Aug, [address] Aug, Routine general medical [facility] [place] examination at a [place] [address] care facility Z00.00 ; History of hepatitis C Z86.19 ; Nicotine dependence, cigarettes, uncomplicated F17.210 ; History of heroin abuse Z87.898 ; Cannabis dependence, abuse F12.20 ; Screening examination for sexually transmitted disease Z11.3 ; Special screening examination for other specified viral diseases Z11.59 ; Allergic rhinitis J30.9 ; Depression F32.9 and Skin disorder L98.[address] Aug, [place] [address] Aug, Dizziness R42 ; BPH ( benign [place] prostatic hypertrophy) with urinary retention N40.0 and Tinnitus, bilateral H93.13 [address] [place] Aug, [facility] [place] [address] Aug, [place] [address] Aug, [place] [address] Aug, [place] [address] Aug, [place] [address] Aug, History of hepatitis C [place] Z86.19 ; Localized edema [address] R60.0 ; Chronic viral hepatitis C B18.2 and Cryoglobulinemia D89.1 Case Management [address] [place], Aug, [address] Aug, History of hepatitis C [place] Z86.19 [address] [facility] [address] [place] [address] Aug, [place] [address] Jul, Low back pain M54.5 ; [place] edema R60.0 and Dysuria [address] Jul, BPH (benign prostatic [place] hypertrophy) with urinary [address] retention N40[address] Jul, Low back pain M54.5 ; [place] edema R60.0 ; BPH (benign [address] prostatic hypertrophy) with urinary retention N40.0 ; Acute hepatitis C B17.10 and Elevated liver enzymes R74.[address] Jun, Hepatitis C virus [place] infection, unspecified [address] chronicity B19.[address] May, [place] [address] May, Routine general medical [place] examination at a [place] [address] care facility Z00.00 ; History of hepatitis C Z86.19 ; Nicotine dependence, cigarettes, uncomplicated F17.210 ; History of heroin abuse Z87.898 ; Cannabis dependence, abuse F12.20 ; Screening examination for sexually transmitted disease Z11.3 ; Special screening examination for other specified viral diseases Z11.59 ; Allergic rhinitis J30.9 ; Depression F32.9 and Skin disorder L98.9 Facilitated Enrollment UNKNOWN May, - [facility] [address] Apr, Anxiety 300.00 [facility] [place] [address] Mar, Stress headaches F45.41 [facility] [place] [address] Mar, Dysuria R30.0 [facility] [place] [address] [place] [address] Mar, [facility] [place] Mar, [facility] [place] [address] Feb, [facility] [place] [address] [place] [address] Feb, [facility] [place] [address] Feb, Right ankle injury S99.911A [place] [address] Feb, [facility] [place] [address] Jan, Injury of right knee, leg [place] ankle and foot 959.7 and [address] Dysuria [address] Jan, [facility] [place] [address] Jan, Right ankle pain 719.47 [place] [address] Jan, [facility] [place] [address] Jan, Right ankle pain 719.47 and [place] Cannabis abuse 305.20 [address] Jan, [facility] [place] [address] [address] [place] Jan, Elevated liver enzymes [facility] [place] CRISTELA 790.5 [address] [place] Jan, Elevated liver function [facility] [place] tests 790.6 [address] Jan, Anxiety 300.00 ; History of [facility] Department[facility]A Arnold heroin abuse 305.53 ; [address] COCAINE ABUSE-IN REMISS 305.63 ; History of hepatitis C V12.09 and Tobacco use disorder 305.[address] Dec, [facility] [place] CRISTELA [address] Dec, [facility] [place]STELA Chacon [address] Nov, Skin disorder 709.9 ; [facility] [place] History of heroin abuse 305.53 ; Low back pain 724.2 ; COCAINE ABUSE-IN REMISS 305.63 and Vomiting 787.[address] Nov, Anxiety 300.00 [facility] [place] [address] Oct, [facility] [place] CRISTELA [address] [facility] [address] [place], [place] [address] Oct, Degenerative disc disease , [facility] [place] lumbar 722.52 ; History of heroin abuse 305.53 ; COCAINE ABUSE-IN REMISS 305.63 ; Back pain 724.5 and Anxiety 300.[address] [place] September, [facility] [place] [address] [place] Jul, [facility] [place], [place] [address] Jun, [facility] [place] [address] May, [facility] [place] [address] [facility] [address] [place] May, [facility] [place]STELA [place] [address] [facility] [address] [place] Apr, Health [facility] CRISTELA Go[place] [address] Mar, [place] [address] Mar, Routine general medical Health [place] examination at a [place] [phone] [facility] facility V70.0 ; Low back pain 724.2 ; Anxiety disorder 300.00 ; History of hepatitis C V12.09 ; Need for influenza vaccination V04.81 and VACCIN FOR DISEASE NEC V05.[address] May, [place] [address] May, [place] [address] May, Low back pain 724.2 [place] [address] IMMUNIZATIONS No Known Immunizations SOCIAL HISTORY Never Assessed REASON FOR REFERRAL FUNCTIONAL STATUS PLAN OF CARE VITAL SIGNS MEDICATIONS Unknown Medications PROCEDURES No Known procedures RESULTS No Results REASON FOR VISIT lab results Insurance Providers [facility] Member Patient Patient Patient Patient Patient Subscriber Subscriber Subscriber Group Insurance Plan Plan Plan Plan ID Relationship Address Phone Name Date of ID Name Date of No Type Insurance Insurance Insurance Coverage to Subscriber Address Phone Name Dates [facility] Slide [phone] [facility] Slide self Ivan [id number] M Family [place] 02 [place] [address] Planning Full Fee Full Fee Medicaid [phone] Medicaid self Ivan [id number] Wrap [facility] [address] [place] [address] Medicaid [id number] Medicaid self Ivan [id number] [facility] [address] [address] Blue [phone] Blue self Ivan [id number] Choice Opt 9255 [address] 83 Choice Opt [place] GG457 [place] [id number] [place] [facility] [place] [facility] Hplex [place] [facility] [address] Case [phone] Case self Ivan [id number] [facility] 02 Management [place] [id number] [facility] Blue [phone] Blue self Ivan [id number] Choice Opt [id number] Choice Opt [place] 6 Medical [place] [facility] [id number] MEDICAL (GENERAL) HISTORY Type Description Date Medical [...] - 3 times- has been in [facility] -97 days is on parole Medical History is in [facility] - 04/05 Medical History 12/04/14ED visit for skin lesion Medical History 11/28/14 ED visit overdose synthetic THC Medical History 01/22/15 smoking [facility]C Medical History February again -for 2weeks , [place] - hematuria while there Medical History 04/14/15 [...] 30 feet off rook bilateral fractures of 06/ 2018 lower extemities Hospitalization History S/P fall 30 feet off rook bilateral fractures of 2017 lower extemities
--- OUTSIDE RECORDS SUMMARY | 2019-04-02 11:01 | XMS REPORT ---
:1980 Author Organization [facility] Medical Address [address] [place] [address] Care Team Providers Name Role Phone Keely Rangel Unavailable Unavailable PROBLEMS Type Condition ICD9-CM [id number] Onset Condition SNOMED Code Code Code Dates Status Problem Low back pain M54.5 Active 876660291 Problem History of hepatitis Z86.19 Active 893881811 C Problem Acute hepatitis C B17.10 Active 161423792 Problem Cocaine abuse in F14.10 Active 295835330 remission Problem Cryoglobulinemia D89.1 Active 653412345344141 Problem BPH (benign N40.0 Active 003845357 prostatic hypertrophy) with urinary retention Problem Tinnitus, bilateral H93.13 Active 9692718374829 Problem Chronic viral B18.2 Active 149112184 hepatitis C Problem Erectile N52.9 Active 633942300 dysfunction, unspecified erectile dysfunction type Problem Hep C w/o coma, B18.2 Active 570446693 chronic Problem Chronic pain after G89.29 Active 917950855 traumatic injury Problem 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 13620513 personality disorder Problem Sleep disorder G47.9 Active 06016221 Problem History of heroin Z87.898 Active 409405542402099 abuse Problem Mood disorder F39 Active 32491966 Problem Anxiety F41.9 Active 54554399 Problem Cannabis dependence, F12.20 Active 71173914 abuse Problem Nicotine dependence, F17.210 Active 35228582 cigarettes, uncomplicated Problem Pain, chronic due to G89.21 Active 307109839 trauma Problem Tinnitus of both H93.13 Active 9669429634078 ears Problem Environmental Z91.09 Active 995807360 allergies Problem Reactive depression F32.9 Active 71011732 (situational) ALLERGIES No Information ENCOUNTERS Encounter Location Date Diagnosis [address] Feb, [place] [address] [address] [place] Jan, Anxiety F41.9 [facility] [place] Antisocial personality [address] disorder F60.2 [address] [place] Jan, Anxiety F41.9 [facility] [place] [address] [address] [place] Jan, [facility] [place] [address] [address] [place] Jan, Anxiety F41.9 [facility] [place] [address] Dec, [place] [address] [address] [place] Dec, Anxiety F41.9 ; Mood [facility] [place] disorder F39 and Antisocial [address] personality disorder F60.2 [address] [place] Dec, Anxiety F41.9 [facility] [address] [address] [place] Dec, [facility] [place] [address] [address] [place] Dec, [facility] [address] [address] [place] Dec, Mood disorder F39 and [facility] [place] Antisocial personality [address] disorder F60.[address] Nov, [place] [address] (situational) F32.9 [address] [place] Nov, Right wrist pain M25.531 [facility] [place] and Environmental allergies [address] Z91.09 [facility] [address] [facility] Nov, [facility] [place] [address] [address] [place] September, [facility] [address] [place] [address] [address] [place] September, [facility] [address] [place] [address] [address] [place] Jul, Herpes zoster without [facility] [place] complication B02.9 [address] Jul, [place] [address] [facility] [address] [place] [address] Jul, Tinnitus of both ears [place] H93.13 [address] [facility] [address] May, [facility] [place] [address] [facility] [address] May, Encounter for general adult [facility] [place] [address] abnormal findings Z00.00 [facility] [address] [facility] Apr, [place] [address] [facility] [address] [place] [address] Feb, Chronic pain after [place] traumatic injury G89.29 [address] [facility] [address] [place] [address] Feb, [place] [address] Jan, [place] [address] [place] [address] Jan, History of hepatitis C [facility] [place] Z86.19 [address] [facility] [address] Jan, [facility] [place] [address] [place] [address] Dec, Bilateral edema of lower [facility] [place] extremity R60.0 [address] [place] [address] Nov, Skin lesion of right arm [facility] [place] L98.9 [address] [facility] [address] Nov, [facility] [place] [address] [facility] [address] Nov, [facility] [place] [address] Nov, [place] [address] [facility] [address] [place] [address] Oct, [place] [address] [facility] [address] [place] [address] Oct, [place] [address] [place] [address] Oct, [facility] [place] [address] [facility] [address] Oct, [facility] [place] [address] Oct, [place] [address] [address] [place] Oct, [facility] [place] [address] Oct, [place] [address] Oct, Lower abdominal pain R10.30 [facility] [place] ; Strain of lumbar [address] paraspinous muscle, initial encounter S39.012A and History of hepatitis C Z86.[address] Oct, History of hepatitis C [facility] [place] Z86.19 [address] [address] [place] Oct, Right lower quadrant [facility] [place] abdominal pain R10.31 ; [address] Anxiety F41.9 and Bone spur M77.[address] Oct, [place] [address] [address] [place] September, [facility] [place] [address] [facility] [address] [facility] September, [place] [address] [address] [place] September, [facility] [place] [address] [address] [place] September, Abrasion of left cornea, [facility] [place] initial encounter S05.02XA [address] September, [facility] [place] [address] Case Management [address] [place], [place] [address] [address] [place] Aug, [facility] [place] [address] [address] [place] Aug, Acute hepatitis C B17.10 [facility] [place] [address] [address] [place] Aug, Acute hepatitis C B17.10 [facility] [place] and Dizziness R42 [address] Aug, [facility] [place] [address] [address] [place] Aug, [facility] [place] [address] [address] [facility] Aug, Anxiety F41.9 and Sleep [facility] [place] disorder G47.9 [address] [place] [address] [address] [place] Aug, [facility] Al[place] [address] [facility] [address] Jul, [place] [address] [place] [address] [address] [place] Jul, [facility] [place] [address] [place] [address] [address] [place] Jul, Acute hepatitis C B17.10 [facility] [place] [address] [place] [address] [address] [place] Jul, [facility] [place] [address] [facility] [address] [place], [place] [address] [facility] [address] [place] [address] [place] [address] [address] [place] Jul, [facility] Al[place] [address] [facility] Management [address] [place], [place] [address] [place] [address] [address] [place] Jul, Anxiety F41.9 ; Sleep [facility] [place] disorder G47.9 and Acute [address] hepatitis C B17.10 [place] [address] [address] [place] Jul, [facility] Al[place]so [place] [address] Jun, [place] [address] [place] [address] [address] [place] Jun, Anxiety F41.9 [facility] [place] [address] [place] [address] [address] [place] Jun, [facility] Alfonso [place] [address] [facility] [address] [place], [place] [address] [place] [address] [address] [place] May, Encounter for general adult [facility] [place] [address] abnormal findings Z00.00 [facility] [address] [place], [place] [address] [facility] Management [address] [place], [place] [address] [place] [address] [address] [place] May, [facility] [place] [address] [place] [address] [address] [place] May, Hep C w/o coma, chronic [facility] [place] B18.2 [address] May, Hep C w/o coma, chronic [facility] [place] B18.2 [address] May, [facility] [address] May, [facility] [place] [address] May, [facility] [address] Apr, [facility] [place] [address] [place] Apr, [facility] [place] [address] [place] [address] Apr, Elevated BP without [facility] [place] diagnosis of hypertension [address] R03.0 Facilitated Enrollment [address] [place] Apr, - [address] Apr, Chronic viral hepatitis C [facility] [place] B18.2 ; Cryoglobulinemia [address] D89.1 ; Nicotine dependence, cigarettes, uncomplicated F17.210 and Cocaine abuse in remission F14.10 [facility] [address] [place], Oct, [address] September, [facility] [address] September, [facility] [address] September, [facility] [place] [address] September, [facility] [address] September, [facility] [address] [facility] [address] [place], September, [address] September, History of heroin abuse [facility] [place] Z87.898 and Cannabis [address] dependence, abuse F12.[address] September, [facility] [address] September, Excessive sweating R61 ; [place] Erectile dysfunction, [address] unspecified erectile dysfunction type N52.9 ; Ejaculatory disorder N53.19 ; Sleep disorder G47.9 and Anxiety F41.9 [facility] [address] [place], September, [address] Aug, [place] [address] [place] [address] Aug, [facility] [address] [facility] Management [address] [place], Aug, [address] Aug, Routine general medical [place] examination at [place] [address] care facility Z00.00 ; History of hepatitis C Z86.19 ; Nicotine dependence, cigarettes, uncomplicated F17.210 ; History of heroin abuse Z87.898 ; Cannabis dependence, abuse F12.20 ; Screening examination for sexually transmitted disease Z11.3 ; Special screening examination for other specified viral diseases Z11.59 ; Allergic rhinitis J30.9 ; Depression F32.9 and Skin disorder L98.[address] Aug, [place] [address] Aug, Dizziness R42 ; BPH ( benign [place] prostatic hypertrophy) with [address] urinary retention N40.0 and Tinnitus, bilateral H93.[address] Aug, [place] [address] Aug, [place] [address] Aug, [place] [address] Aug, [place] [address] Aug, [place] [address] [address] [place] Aug, History of hepatitis C [place] Z86.19 ; Localized edema [address] R60.0 ; Chronic viral hepatitis C B18.2 and Cryoglobulinemia D89.1 [facility] [address] [place], Aug, [address] Aug, History of hepatitis C [place] Z86.19 [address] [address] Aug, [place] [address] Jul, Low back pain M54.5 ; [place] edema R60.0 and Dysuria [address] [address] Jul, BPH (benign prostatic [place] hypertrophy) with urinary [address] retention N40.[address] Jul, Low back pain M54.5 ; [place] edema R60.0 ; BPH (benign [address] prostatic hypertrophy) with urinary retention N40.0 ; Acute hepatitis C B17.10 and Elevated liver enzymes R74.[address] Jun, Hepatitis C virus [place] infection, unspecified [address] chronicity B19.[address] May, [address] May, Routine general medical [place] examination at [place] [address] care facility Z00.00 ; History of hepatitis C Z86.19 ; Nicotine dependence, cigarettes, uncomplicated F17.210 ; History of heroin abuse Z87.898 ; Cannabis dependence, abuse F12.20 ; Screening examination for sexually transmitted disease Z11.3 ; Special screening examination for other specified viral diseases Z11.59 ; Allergic rhinitis J30.9 ; Depression F32.9 and Skin disorder L98.9 Facilitated Enrollment UNKNOWN May, - [address] Apr, Anxiety 300.[address] Mar, Stress headaches F45.[address] Mar, Dysuria R30.0 [place] [address] [place] [address] Mar, [facility] [place] [address] Mar, [facility] [place] [address] Feb, [facility] [place] [address] [place] [address] Feb, [facility] [place] [address] Feb, Right ankle injury S99.911A [facility] [place] [address] Feb, [facility] [place] [address] Jan, Injury of right knee, leg [facility] [place] ankle and foot 959.7 and [address] Dysuria 7[address] Jan, [facility] [place] [address] Jan, Right ankle pain 719.47 [facility] [place] [address] Jan, [facility] [place] [address] Jan, Right ankle pain 719.47 and [facility] [place] Cannabis abuse 305.20 [address] Jan, [facility] [place] [address] [place] [address] Jan, Elevated liver enzymes [facility] [place] 790.5 [address] Jan, Elevated liver function [facility] [place] tests 790.6 [address] Jan, Anxiety 300.00 ; History of [facility] [place] heroin abuse 305.53 ; [address] COCAINE ABUSE-IN REMISS 305.63 ; History of hepatitis C V12.09 and Tobacco use disorder 305.[address] Dec, [facility] [place] [address] Dec, [facility] [place] [address] Nov, Skin disorder 709.9 ; [facility] [place] History of heroin abuse [address] 305.53 ; Low back pain 724.2 ; COCAINE ABUSE-IN REMISS 305.63 and Vomiting 787.[address] Nov, Anxiety 300.00 [facility] [place] Oct, [facility] [address] [facility] [address] [place], [place] [address] Oct, Degenerative disc disease , [facility] [place] lumbar 722.52 ; History [place] [address] heroin abuse 305.53 ; COCAINE ABUSE-IN REMISS 305.63 ; Back pain 724.5 and Anxiety 300.[address] September, [facility] [place] [address] Jul, [facility] [place] [address] Jun, [facility] [place] [address] May, [facility] [place] [address] [facility] May, [facility] [facility] Apr, [facility] Mar, [facility] [place] [address] Mar, Routine general medical [place] examination [place] [address] care facility V70.0 ; Low back pain 724.2 ; Anxiety disorder 300.00 ; History of hepatitis C V12.09 ; Need for influenza vaccination V04.81 and VACCIN FOR DISEASE NEC V05.[address] May, [place] [address] May, [place] [address] [facility] [address] May, 2012 Low back pain 724.2 [place] [address] IMMUNIZATIONS No Known Immunizations SOCIAL HISTORY Never Assessed REASON FOR REFERRAL FUNCTIONAL STATUS PLAN OF CARE Activity Details Follow Up 2 Weeks Reason: VITAL SIGNS MEDICATIONS Medication Instructions Dosage Frequency Start Date End Date Duration Status JOSE Wrist Device daily Use on 24h 05 Nov, 30 day(s) Active Brace/Splint - right wrist 2018 PROCEDURES Procedure Date Ordered Result Body Site Psychotherapy 16-37 Min Feb 08, 2019 RESULTS No Results REASON FOR VISIT Insurance Providers [facility] Member Patient Patient Patient Patient Patient Subscriber Subscriber Subscriber Group Insurance Plan Plan Plan Plan ID Relationship Address Phone Name Date of ID Name Date of No Type Insurance Insurance Insurance Coverage to Subscriber Address Phone Name Dates Blue [phone] Blue self Ivan [id number] Choice [place] [id number] Choice Opt Colf 6 Medical [facility] Medical [address] Case [phone] Case self Ivan [id number] Management [place] 02 Management Colf [facility] [address] [facility] Medicaid [id number] Medicaid self Ivan [id number] [facility] 00 Colf [address] Medicaid [id number] Medicaid self Ivan [id number] Wrap [facility] 56 Wrap Colf [address] FLC Slide [phone] [facility] Slide self Ivan [id number] M Family [place] 02 M Family Colf [place] [id number] Planning Full Fee Full Fee Blue [phone] Blue self Ivan [id number] Choice Opt 9255 Attn 83 Choice Opt Colf [id number] [place] Claims [id number] [place] [facility] [place] [facility] [place] [facility] [address] MEDICAL (GENERAL) HISTORY Type Description Date Medical [...] incarcerated - 3 times- has been in [facility] -97 days is on parole Medical History is in [facility] - 04/05 Medical History 12/04/14ED visit for skin lesion Medical History 11/28/14 ED visit overdose synthetic THC Medical History 01/22/15 smoking THC Medical History February again -for 2weeks , [place] - hematuria while there Medical History 04/14/15 [...]
--- NOTE | 2019-04-02 11:46 | ED ---
Lower Extremity - HPI Summary HPI Summary: Pt. is a 38 y.o male who presents to the ER stating he was sent here for a " bone infection" in his right lower leg. Pt. states he fell off a roof and sustained fractures to right lower leg earlier this year. Pt. has been being treated by orthopedics in [place]. Pt. states he has had numerous surgeries. Pt. states he noticed redness to an incision last week and saw his ortho doctor. He was placed on Clindamycin. Pt. states he went to his pcp last week because pain and redness were note improving. Pt. states his PCP sent him for an outpt. CT scan of leg which reportedly showed a "bone infection." Pt. states his PCP called him today and told him to go to the [facility] to be treated for infection. Pt. denies past medical hx. Notes chilles, no fever. Sxs are moderate in severity. Walking makes sxs worse. Nothing makes sxs better. - History of Current Complaint Chief Complaint: EDExtremityLower Stated Complaint: POSS BONE INFECTION PER PT Time Seen by Provider: 04/02/19 11:26 Hx Obtained From: Patient Pain Intensity: 5 - Allergies/Home Medications Allergies/Adverse Reactions: Allergies Allergy/AdvReac Type Severity Reaction Status Date / Time No Known Allergies Allergy Verified 04/02/19 10:48 Home Medications: Home Medications Clindamycin Cap(NF) [Clindamycin Cap 300 mg Cap(NF)] 300 mg PO TID 04/02/19 [ History Confirmed 04/02/19] PMH/Surg Hx/FS Hx/Imm Hx Previously Healthy: Yes Infectious Disease History: No Infectious Disease History: Denies: Traveled Outside the in Last 30 Days - Family History Known Family History: Positive: Non-Contributory - Social History Occupation: Employed Full-time Lives: With Family Alcohol Use: Occasionally Substance Use Type: Reports: Prescribed Smoking Status (MU): Current Every Day Smoker Review of Systems Positive: Chills. Negative: Fever Positive: Other - Right lower leg pain Neurological: Negative Negative: Weakness, Paresthesia, Numbness All Other Systems Reviewed And Are Negative: Yes Physical Exam Triage Information Reviewed: Yes Vital Signs On Initial Exam: Initial Vitals Temp Pulse Resp BP Pulse Ox 98.9 F 69 18 152/90 98 04/02/19 10:43 04/02/19 10:43 04/02/19 10:43 04/02/19 10:43 04/02/19 10:43 Vital Signs Reviewed: Yes Skin: Positive: Warm, Dry Head/Face: Positive: Normal Head/Face Inspection - Pt. sitting on bed in NAD. SO present. Eyes: Positive: Normal, EOMI Neck: Positive: Supple Cardiovascular: Positive: Normal, RRR. Negative: Murmur Musculoskeletal: Positive: Other - Good pulse to right pedal pulse. No calf tenderness or edema. Healing surgical incisions to right lower leg. Mild edema. No overlying erythema. Pain to palpation of tibia. Neurological: Positive: Normal, CN Intact II-III Procedures - Sedation Patient Received Moderate/Deep Sedation with Procedure: No Diagnostics - Vital Signs Vital Signs Temp Pulse Resp BP Pulse Ox 04/02/19 10:43 98.9 F 69 18 152/90 98 - Laboratory Result Diagrams: 04/02/19 12:07 04/02/19 12:07 Lab Statement: Any lab studies that have been ordered have been reviewed, and results considered in the medical decision making process. Lower Extremity Course/Dx - Course Course Of Treatment: Pt. presenting with ? postoperative complications. He is afebrile and well appearing. CT records being obtained. Labs and cultures ordered. Pt. does not wish to return to his ortho surgeon at [place]. Pt. upset he has had so many complications and that he has required [address] read per Dr[address] Vin Tucker from [facility]: "Findings highly suspicious for osteomyelitis with two areas of clear abscess formation along the medial aspect of the tibia, one above the fx line and one below it, with small abscesses present and associated cellulitis. There may well be an ulceration which connects to the inferior extent of the lower collection medially where there is focal skin thickening just above the medial malleolus.". Case discussed with oncall orthopedics, Dr. Hernandez, who is agreeable to see pt. He would like tib/fib xray and possible repeat CT scan if we are unable to obtain images. Pt.'s labs are unremarkable including normal CBC and CRP. Pt. examined in ed by ortho Corona MONTESINOS. She examined pt. and discussed with Dr. Hernandez they feel since pt. is afebrile with normal labs that he can continue po clinda and fu in office with them if he is unable to return to his original orthopedic sx. Pt. will return to er for increased pain, fever, or if concerned. Pt. agreeable with plan. - Diagnoses Differential Diagnosis/HQI/PQRI: Positive: Cellulitis, DVT, Infection, Osteomyelitis Provider Diagnoses: Osteomyelitis Discharge ED - Sign-Out/Discharge Documenting (check all that apply): Patient Departure - Discharge Plan Condition: Good Disposition: HOME Prescriptions: Clindamycin HCl 300 mg PO TID #30 capsule Patient Education Materials: Osteomyelitis (ED) Referrals: Guerrero Leon MD [Medical Doctor] - Additional Instructions: Schedule a follow up appointment with orthopedics Continue clindamycin as directed Tylenol or Motrin for pain as directed Return to ER for fever, increased pain, or if concerned - Billing Disposition and Condition Condition: GOOD Disposition: Home
[2019-04-02 12:28] LABS: ABS Eosinophils 0.1 10^3/ul (0-0.6); ABS Lymphocytes 1.5 10^3/ul (1.0-4.8); ABS Monocytes 0.6 10^3/ul (0-0.8); ABS Neutrophils 5.9 10^3/ul (1.5-7.7); Eosinophil % 0.7 %; Hematocrit 43 % (42-52); Lymphocyte % 18.5 %; Mean Corpuscular HGB Conc 35 g/dL (31-36); Mean Corpuscular Hemoglobin 30 pg (27-31); Mean Corpuscular Volume 87 fL (80-94); Mean Platelet Volume 8.1 fL (7.4-10.4); Nucleated Red Blood Cells % 0.2; Platelet Count 172 10^3/uL (150-450); Red Cell Distribution Width 14 % (10-15); White Blood Count 8.1 10^3/uL (3.5-10.8)
[2019-04-02 12:45] LABS: ALT 7 U/L (7-52); AST 15 U/L (13-39); Albumin 4.6 g/dL (3.2-5.2); Albumin/Globulin Ratio 1.8 (1-3); Alkaline Phosphatase 63 U/L (34-104); Anion Gap 4 mmol/L (2-11); Blood Urea Nitrogen 12 mg/dL (6-24); C Reactive Protein < 1.00 mg/L (<8.01); CO2 Carbon Dioxide 27 mmol/L (22-32); Calcium 9.5 mg/dL (8.6-10.3); Chloride 107 mmol/L (101-111); EGFR Non-African American 92.6 (>60); Globulin 2.5 g/dL (2-4); Glucose 87 mg/dL (70-100); Potassium 4.1 mmol/L (3.5-5.0); Sodium 138 mmol/L (135-145); Total Protein 7.1 g/dL (6.4-8.9)
[2019-04-02] MEDS ORDERED: HYDROcodone/ACETAMIN 5-325 MG* 1 TAB PO ONE (12:59)
[2019-04-02 15:35] VITALS: BP 117/64
--- NOTE | 2019-04-02 17:56 | CONS ---
CONSULTATION REPORT: DATE OF CONSULT: 04/02/19 - EMERGENCY DEPT CHIEF COMPLAINT: Right lower extremity pain. HISTORY OF PRESENT ILLNESS: The patient is a 38-year-old male who presented to the emergency room with right lower extremity pain after being referred by his primary care physician. The patient has a history of right lower extremity tib- fib fracture that occurred on 11/10/17 after he fell approximately 30 feet off of a roof. He fractured and dislocated the left ankle. The right lower extremity was treated with an external fixator device until revision surgery on 11/29/17 at which time the ex-fix was removed and ORIF with a medial and lateral plate and screws were placed. This treatment occurred in [place]. Ultimately, he continued to have discomfort, therefore the medial plate was removed on 05/01/18 and a tibial nail was placed. He continued to have discomfort in the extremity despite followups with his surgeon in [place] and then on 02/05/19, the lateral plate was removed at which time one of the screws broke and the tsering remained. He returned to his surgeon 6 weeks ago with continued discomfort and was placed on oral antibiotics for 10 days but did not have a followup appointment. Therefore, he called his primary care provider who saw him and placed him on oral antibiotics and ordered a CT scan. The CT scan was suspicious for osteomyelitis, therefore his primary care provider told him to proceed to [facility] for evaluation. He currently is taking clindamycin 300 mg 3 times a day. He denies fevers or chills. He is ambulatory without assistive devices. No active drainage is noted from the incision, although he says that a week ago there was some drainage that was cultured. His pain has been contact and he manages this with marijuana use due to a history of cocaine and heroin use. He has been sober 4 years and finds that the marijuana makes his pain tolerable, although it does not relieve it. He has been out of work since this injury and is quite frustrated with his surgical course. PAST MEDICAL HISTORY: Migraines, anxiety, and drug abuse. PAST SURGICAL HISTORY: Right tib-fib ORIF with hardware removal and subsequent tibial nail as well as left ankle ORIF. He denies anesthetic complications with any of these procedures. CURRENT MEDICATIONS: Tylenol p.r.n. pain. ALLERGIES: None. FAMILY HISTORY: Positive for cancer. No diabetes or heart disease. SOCIAL HISTORY: Lives with his partner and has smoked tobacco and marijuana for 23 years. He denies alcohol or recreational drug use. REVIEW OF SYSTEMS: Fourteen systems are reviewed with the patient. They are negative for fevers, chills, nausea, vomiting, chest pain with exertion, or shortness of breath with exertion. He denies new or change in the pain in the right lower extremity. All other systems are negative. PHYSICAL EXAM: Vital Signs: Temperature 98.9, pulse 69, blood pressure 152/90 , respirations 18. In general, he is a well-developed, well-developed, well nourished thin male lying in emergency room stretcher, in no acute distress. HEENT: Normocephalic, atraumatic. Hearing and vision are grossly intact, with extraocular movements intact. Neck: The trachea is midline and symmetrical. Lungs: Clear to auscultation. No wheezes, rales, or rhonchi appreciated. Cardio: Regular rate and rhythm. Normal S1, S2. No murmurs, rubs, or gallops noted. Abdomen: Nondistended, nontender. Bowel sounds present. Musculoskeletal: Right lower extremity: The patient has multiple medial and lateral postoperative scars that appear benign. The most medial distal incision has healing crust without drainage or fluctuance. No erythema. There is no warmth to the area. He has mild hypersensitivity to light touch in that area. He has active range of motion in 4 planes in the ankle, although the range is greatly reduced. Mild edema is noted throughout the lower extremity. Calf is soft and nontender. Sensation is intact. In the digits, brisk capillary refill. 2+ dorsalis pedis pulse. IMAGING: Multiple views of the right lower extremity are obtained. They show the tibial tsering in appropriate placement with intact screws. No obvious acute bony abnormalities are appreciated. He has medial hypertropic bony growth consistent with heel fracture. Mortise appear well aligned. IMPRESSION: Right lower extremity pain, status post trauma and subsequent tibial nailing. PLAN: After discussion with Dr. Leon, the patient can be discharged for outpatient monitoring and further treatment evaluation. Therefore, he will continue clindamycin 300 mg 3 times daily and follow up this week in our office. The patient was instructed specifically to obtain all records from his surgeon in [place] if he does wish to pursue follow up care with our practice. It was explained that he needs copies of any CT scans, radiographs, and visit notes when he comes for his visit. The patient expressed understanding and was given our office number and will call for an appointment tomorrow at [phone]. YAMEL CHAVEZ [id number]/[facility] #: [id number] MATTIE
== END 2019-04-02 15:34 | disposition home or self-care (01) ==
LOC: ED 10:35
DX: M86.9 Osteomyelitis, unspecified (principal); F17.200 Nicotine dependence, unspecified, uncomplicated
CPT/HCPCS: 36415; 80053; 85025; 86140; 87040; 99282

== ENCOUNTER 2019-04-26 07:48 | Day surgery (SDC) | payer BC ==
[~2019-04-26 07:48] MED LIST: Acetaminophen TAB* 325 MG PO ONE; Buffered Lidocaine 1% SYRIN* 1 ML/SYRINGE INTRADERM ONE; Famotidine IV* 10 MG/ML 2 ML (20 mg) IV ONE; Gabapentin CAP(*) 400 MG PO ONE; Lactated Ringers 1000 ML Bag* 1,000 ML IV SCH
[2019-04-26] MEDS ORDERED: Famotidine IV* 10 MG/ML 2 ML (20 mg) ONE (08:10)
[2019-04-26] MEDS ORDERED: Gabapentin CAP(*) 400 MG PO ONE (08:10)
[2019-04-26] MEDS ORDERED: Acetaminophen TAB* 325 MG ONE (08:10)
[2019-04-26] MEDS ORDERED: ceFAZolin 2 GM in NS PREMIX(*) 2 GM/100 ML BAG IVPB ONE (08:11)
[2019-04-26] MEDS ORDERED: fentaNYL* 50 MCG/ML 2 ML VIAL (100 MCG VIAL) ONE (09:05)
[2019-04-26] MEDS ORDERED: Midazolam* 1 MG/ML 2 ML VIAL (2 MG) ONE (09:05)
[2019-04-26] MEDS ORDERED: Lidocaine 2% PF * 5 ML VIAL ONE (09:54)
[2019-04-26] MEDS ORDERED: Propofol* 10 MG/ML 20 ML BTL ONE (09:54)
[2019-04-26] MEDS ORDERED: Ketorolac INJ* 30 MG/ML 1 ML VIAL ONE (09:54)
[2019-04-26] MEDS ORDERED: Dexamethasone IV* 4 MG/ML 1 ML (4 MG) ONE (09:54)
[2019-04-26] MEDS ORDERED: HYDROcodone/ACETAMIN 5-325 MG* 1 TAB PO PRN ×2 (10:12)
[2019-04-26] MEDS ORDERED: fentaNYL* 50 MCG/ML 2 ML VIAL (100 MCG VIAL) IV PRN (10:12)
[2019-04-26] MEDS ORDERED: diPHENhydraMINE IV* 50 MG/ML 1 ml VIAL (BENADRYL) IV PRN (10:12)
[2019-04-26] MEDS ORDERED: Levalbuterol 0.63MG/3ML NEB* UNIT OF USE INH PRN (10:12)
[2019-04-26] MEDS ORDERED: Naloxone* 0.4 MG/ML 1 ML VIAL IV PRN (10:12)
[2019-04-26] MEDS ORDERED: Ondansetron INJ* 2 MG/ML VIAL IV PRN (10:12)
[2019-04-26] MEDS ORDERED: DiMENhydriNATE IV* 50 MG/ML VIAL IV PUSH PRN (10:12)
[2019-04-26] MEDS ORDERED: Bupivacaine 0.5%* 50 ML MDV VIAL ONE (10:21)
--- NOTE | 2019-04-26 10:38 | OP ---
Operative Report - Blank - Operative Report Date of Operation: 04/26/19 Note: PATIENT: Ivan Kat DATE OF : 1980 DATE OF SURGERY: 04/26/2019 SURGEON: Guerrero Leon MD BARREL BANDER: YAMEL Greer, whos assistance was necessary for positioning , retraction, help with instrumentation, and closure. ANESTHESIOLOGIST: Dr. Lei PREOPERATIVE DIAGNOSIS: Right leg pain after trauma and multiple surgeries with concern for deep infection/osteomyleitis POSTOPERATIVE DIAGNOSIS: Right leg pain after trauma and multiple surgeries with concern for deep infection/osteomyleitis OPERATION: Right tibia deep bone biopsies and deep cultures ANESTHESIA: LMA IMPLANTS: none TOURNIQUET TIME: Less than 30 minutes with an ankle Esmarch tourniquet. SPECIMENS: 2 sets of culture swabs to microbiology. Tibial bone to microbiology. Tibial bone to pathology. ESTIMATED BLOOD LOSS: minimal COMPLICATIONS: none STATUS: Stable from the operating room to the recovery room and then home. INDICATIONS FOR PROCEDURE: Ivan sustained major right lower extremity trauma. He underwent multiple surgeries at [facility]. He has been having worsening pain after a removal of hardware. There was some concern on CT scan a potential for osteomyelitis. We did discuss obtaining deep cultures and bone biopsies to further help in determining if there is infection present. The nature and risks of surgery were reviewed in careful detail. Our discussions regarding the risks of surgery included, but were not limited to, infection, wound problems, nerve injury, neuroma, RSD, persistent symptoms, blood clot, need for further surgery , failure of the surgery, and even the remote chance of catastrophic complication. DESCRIPTION OF PROCEDURE: The patient was seen in the preoperative holding unit and informed written consent was obtained. The appropriate extremity was marked. The patient was then brought to the operating room and carefully positioned on the operating room table. Anesthesia was induced. All bony prominences were padded with great care. A chlorhexidine based pre-scrub was performed followed by a chloraprep prep and drape in standard sterile fashion. A surgical safety pause was then conducted in which we confirmed the appropriate patient, extremity, planned procedure, availability of equipment, indication and administration of prophylactic antibiotics (after obtaining the specimens), and DVT prophylaxis in the form of a compression boot on the non-surgical extremity. I began with placement of an Esmarch tourniquet below the knee. I then made an approximately 2 cm incision over the anteromedial aspect of the distal tibial shaft at the site of maximal pain. I dissected down to the periosteal and bone layer. No purulence was encountered. 2 sets of deep culture swabs were taken. I then used a bone biopsy needle to take cores of bone from the tibia. Some of this bone was sent to microbiology and some was sent to pathology. Antibiotics were then administered. I then thoroughly irrigated the wound and closed in layers utilizing 3-0 Monocryl for the dermal layer and 3-0 nylon for the skin. A sterile dressing was then applied. The patient was then awakened from anesthesia and transferred to the recovery room in stable condition. There were no complications. All needle and sponge counts were correct at the end of the case. ATTESTATION: I attest I was present and scrubbed and performed the critical portions of the procedure myself. POSTOPERATIVE PLAN: We will plan on seeing him back in 2 weeks for suture removal and to go over the results. We will use aspirin for DVT prophylaxis.
[2019-04-26 12:25] VITALS: BP 118/75
== END 2019-04-26 11:00 | disposition home or self-care (01) ==
LOC: OR 07:48
PROVIDERS: ATTEND Orthopaedic Surgery
DX: S82.301S Unspecified fracture of lower end of right tibia, sequela (principal); M79.661 Pain in right lower leg; G90.521 Complex regional pain syndrome I of right lower limb; F17.210 Nicotine dependence, cigarettes, uncomplicated; F41.8 Other specified anxiety disorders; W13.2XXS Fall from, out of or through roof, sequela; Y92.9 Unspecified place or not applicable
CPT/HCPCS: 87070; 87073; 87205; 88305; 88311; A9270-GY; J0690; J1100; J1885; J2250; J2704; J3010; J3490